=== PATIENT | female | born 1960 | race Caucasian/White ===

== ENCOUNTER 2019-01-08 15:35 | Emergency (ER) | payer SELFPAY ==
[~2019-01-08] VITALS: Ht 170.2 cm; Wt 81.6 kg
[~2019-01-08 15:35] MED LIST: FIORCET PO; METOPROLOL SUCC50 MG PO; ULTRAM50 MG PO
--- OUTSIDE RECORDS SUMMARY | 2019-01-08 15:38 | XMS REPORT | Clinical Summary ---
Author Author [facility] Organization [facility] Address Unknown Phone Unavailable Care Team Providers Care Magnetic Prospector Name Role Phone Aylin Delgado MD PCP Allergies Comments Active Allergy Reactions Severity Noted Date "spaced out" Prochlorperazine Other (See 01/08/2016 Comments) Penicillins Rash Low 01/08/2016 "Red streak" Metoclopramide Hcl Other (See 01/08/2016 Comments) jittery Ketorolac Other (See 01/08/2016 Comments) Medications End Date Status Medication Sig Dispensed Refills Start Date Active metoprolol tartrate Take 50 mg by 0 (LOPRESSOR) 50 mg tablet mouth 2 (two) times a day. Active QUEtiapine (SEROquel) 300 Take 300 mg 0 MG tablet by mouth nightly. Active DULoxetine (CYMBALTA) 30 Take 30 mg by 0 MG capsule mouth daily. Active hydrOXYzine (ATARAX) 25 Take 25 mg by 0 MG tablet mouth 2 (two) times a day. Active traMADol (ULTRAM) 50 mg Take 50 mg by 0 tablet mouth 2 (two) times a day. Active butalbital-acetaminophen- Take 1 0 caff (FIORICET) 50-300-40 capsule by mg capsule mouth daily as needed (migraine). Active gabapentin (NEURONTIN) Take 600 mg 0 600 mg tablet by mouth 2 (two) times a day. 07/05/2018 Discontinued butalbital-acetaminophen- Take 1 tablet 0 caff (FIORICET, ESGIC) by mouth 50-325-40 mg per tablet every 4 (four) hours as needed for headaches. 09/19/2018 Discontinued (Med List Cleanup) clonAZEPAM (KlonoPIN) 1 Take 1 mg by 0 MG tablet mouth 3 (three) times a day. 09/19/2018 Discontinued (Med List Cleanup) QUEtiapine (SEROquel) 100 Take 150 mg 0 MG tablet by mouth 2 (two) times a day. 09/19/2018 Discontinued (Med List Cleanup) PARoxetine (PAXIL) 20 MG Take 20 mg by 0 tablet mouth every morning. 09/19/2018 Discontinued zolpidem (AMBIEN) 10 mg Take 10 mg by 0 tablet mouth nightly as needed for sleep. 09/19/2018 Discontinued (Med List Cleanup) HYDROcodone-acetaminophen Take 2 0 (NORCO) 7.5-325 mg per tablets by tablet mouth 2 (two) times a day. 07/10/2018 butalbital-acetaminophen- Take 1 tablet 20 tablet 0 caff (ESGIC) 50-325-40 mg by mouth 9 per tablet every 4 (four) hours as needed for headaches for up to 5 days. 09/19/2018 Discontinued (Med List Cleanup) dextromethorphan-guaifene Take 10 mL by 236 mL 1 sin (TUSSIN-DM) 10-100 mouth every 4 9 mg/5 mL liquid liquid (four) hours for 30 days. 08/29/2018 Discontinued (Reorder) benzonatate (TESSALON Take 1 20 capsule 0 PERLES) 100 MG capsule capsule (100 9 mg total) by mouth 3 (three) times a day as needed for cough for up to 30 days. 09/19/2018 Discontinued (Med List Cleanup) benzonatate (TESSALON Take 1 20 capsule 0 PERLES) 100 MG capsule capsule (100 9 mg total) by mouth 3 (three) times a day as needed for cough for up to 30 days. 09/24/2018 methylPREDNISolone follow 21 tablet 0 (MEDROL, KIT,) 4 mg package 9 tablet directions Active Problems Problem Noted Date Non-intractable vomiting with nausea 09/07/2017 Encounters Care Team Description Date Type Specialty Steve Butt MD Neck pain (Primary Dx) 09/19/2018 Emergency Emergency Medicine Laurel Ibarra MD Viral URI with cough (Primary Dx); Nonintractable episodic headache, unspecified headache type 08/29/2018 Emergency Emergency Medicine 08/29/2018 Travel Fabio Koroma MD Non-intractable vomiting with nausea, unspecified vomiting type (Primary Dx); Migraine without status migrainosus, not intractable, unspecified migraine type; SOB (shortness of breath) 07/05/2018 Emergency Emergency Medicine after 01/07/2018 Social History Date Tobacco Use Types Packs/Day Years Used Never Smoker Smokeless Tobacco: Never Used Drinks/Week oz/Week Comments Alcohol Use No Sex Assigned at Date Recorded Not on file Industry Job Start Date Occupation Not on file Not on file Not on file Travel End Travel History Travel Start No recent travel history available. Last Filed Vital Signs Reading Time Taken Comments Vital Sign 152/95 09/19/2018 12:30 PM CDT Blood Pressure 56 09/19/2018 12:30 PM CDT Pulse 36.5 C (97.7 F) 09/19/2018 10:08 AM CDT Temperature 18 09/19/2018 12:00 PM CDT Respiratory Rate 99% 09/19/2018 12:30 PM CDT Oxygen Saturation - - Inhaled Oxygen Concentration 77 kg (169 lb 12.1 oz) 08/29/2018 10:01 PM CDT Weight 170.2 cm (5' 7") 09/19/2018 10:08 AM CDT Height 26.59 08/29/2018 10:01 PM CDT Body Mass Index Plan of Treatment Health Maintenance Due Date Last Done Comments CERVICAL CANCER SCREENING 1981 BREAST CANCER SCREENING 2010 COLONOSCOPY SCREENING 2010 SHINGLES VACCINES (#1) 2010 INFLUENZA VACCINE 11/21/2018 Procedures Comments Procedure Name Priority Date/Time Associated Diagnosis CT CERVICAL SPINE WO STAT 09/19/2018 CONTRAST 11:47 AM CDT ESTIMATED GFR STAT 08/29/2018 5:00 PM CDT COMPREHENSIVE METABOLIC STAT 08/29/2018 PANEL 5:00 PM CDT HC COMPLETE BLD COUNT STAT 08/29/2018 W/AUTO DIFF 5:00 PM CDT XR CHEST 2 VW STAT 08/29/2018 4:55 PM CDT HCG QUALITATIVE, URINE Routine 07/05/2018 SCREEN 8:40 PM CDT TROPONIN Timed 07/05/2018 8:[address] HEAD WO CONTRAST STAT 07/05/2018 7:20 PM CDT URINE CULTURE Routine 07/05/2018 6:45 PM CDT URINALYSIS SCREEN AND Routine 07/05/2018 MICROSCOPY, WITH REFLEX 6:44 PM CDT TO CULTURE ESTIMATED GFR STAT 07/05/2018 5:58 PM CDT TROPONIN STAT 07/05/2018 5:58 PM CDT B NATRIURETIC PEPTIDE STAT 07/05/2018 5:58 PM CDT COMPREHENSIVE METABOLIC STAT 07/05/2018 PANEL 5:58 PM CDT PARTIAL THROMBOPLASTIN STAT 07/05/2018 TIME (PTT) 5:58 PM CDT PROTHROMBIN TIME WITH INR STAT 07/05/2018 5:58 PM CDT HC COMPLETE BLD COUNT STAT 07/05/2018 W/AUTO DIFF 5:58 PM CDT ECG 12-LEAD STAT 07/05/2018 4:39 PM CDT after 01/07/2018 Results * CT Cervical Spine Wo Contrast (09/19/2018 11:47 AM CDT) Specimen Narrative Performed At EXAMINATION:CT CERVICAL SPINE WO CONTRAST [facility] CLINICAL HISTORY:Neck paininitial exam COMPARISON:None. TECHNIQUE: Axial helical CT images throughout the cervical spine were performed without IV contrast. Sagittal and coronal reformatted images were generated. All CT images were acquired using low-dose technique with automated exposure control. FINDINGS: There is no evidence of acute fracture, traumatic subluxation, or dislocation. There is normal cervical lordosis and alignment. Vertebral bodies are preserved. There is no evidence of paraspinal hematoma. Minimal posterior disc spondylosis seen at C5-C6 level with no significant canal stenosis. IMPRESSION: No acute cervical spine bony abnormality. [id number] Procedure Note Hm Interface, Radiology Results [facility] - 09/19/2018 11:53 AM CDT EXAMINATION: CT CERVICAL SPINE WO CONTRAST CLINICAL HISTORY: Neck pain initial exam COMPARISON: None. TECHNIQUE: Axial helical CT images throughout the cervical spine were performed without IV contrast. Sagittal and coronal reformatted images were generated. All CT images were acquired using low-dose technique with automated exposure control. FINDINGS: There is no evidence of acute fracture, traumatic subluxation, or dislocation. There is normal cervical lordosis and alignment. Vertebral bodies are preserved. There is no evidence of paraspinal hematoma. Minimal posterior disc spondylosis seen at C5-C6 level with no significant canal stenosis. IMPRESSION: No acute cervical spine bony abnormality. [id number] Performing Organization Address [facility] Hospital[facility] [place] [address] * Estimated GFR (08/29/2018 5:00 PM CDT) Only the most recent of 2 results within the time period is included. [facility] Estimated GFR 71 mL/min/1.73 m2 [facility] Comment: [facility] rpretation G1 >=90 Normal or high G2 60-89Mildly decreased [id number] Mildly to moderately decreased [id number] Moderately to severely decreased G4 15-29Severely decreased G5 <15Kidney failure The eGFR was calculated using the Chronic Kidney Disease Epidemiology Collaboration (CKD-EPI) equation. Interpretation is based on recommendations of the National Kidney Foundation-Kidney Disease Outcomes Quality Initiative (NKF-KDOQI) published in 2014. Specimen Plasma specimen Performing Organization Address City/[facility]/Zipcode Phone Number [facility] [place] [address] PATHOLOGY AND GENOMIC MEDICINE [address] * CBC with platelet and differential (08/29/2018 5:00 PM CDT) Only the most recent of 2 results within the time period is included. [facility] WBC 7.64 4.50 - 11.00 k/uL [facility] RBC 3.47 (L) 4.20 - 5.50 m/uL [facility] HGB 10.4 (L) 12.0 - 16.0 g/dL [facility] HCT 32.5 (L) 37.0 - 47.0 % [facility] MCV 93.7 82.0 - 100.0 fL [facility] MCH 30.0 27.0 - 34.0 pg [facility] MCHC 32.0 31.0 - 37.0 g/dL [facility] RDW - SD 49.3 37.0 - 55.0 fL [facility] MPV 9.6 8.8 - 13.2 fL [facility] Platelet count 291 150 - 400 k/uL [facility] Nucleated RBC 0.00 /100 WBC [facility] Neutrophils 52.6 39.0 - 69.0 % [facility] Lymphocytes 33.0 25.0 - 45.0 % [facility] Monocytes 11.5 (H) 0.0 - 10.0 % [facility] Eosinophils 2.1 0.0 - 5.0 % [facility] Basophils 0.4 0.0 - 1.0 % [facility] Immature 0.4Comment: "Immature 0.0 - 1.0 % MIZE granulocytes granulocytes" (promyelocytes, [facility] myelocytes, metamyelocytes) HOSPITAL Specimen Blood Performing Organization Address City/State/Zipcode Phone Number [facility] DEPARTMENT OF [address] [place] [address] PATHOLOGY AND GENOMIC MEDICINE [address] * Comprehensive metabolic panel (08/29/2018 5:00 PM CDT) Only the most recent of 2 results within the time period is included. Sodium 135 135 - 148 mEq/L [facility] Potassium 3.8 3.5 - 5.0 mEq/L [facility] Chloride 98 98 - 112 mEq/L [facility] CO2 27 24 - 31 mEq/L [facility] Anion gap 10@ANIO 7 - 15 mEq/L [facility] BUN 3 (L) 6 - 20 mg/dL [facility] Creatinine 0.89 0.50 - 0.90 mg/dL [facility] Glucose 92 65 - 99 mg/dL [facility] Calcium 9.0 8.3 - 10.2 mg/dL [facility] Protein 7.6 6.3 - 8.3 g/dL MIZE Comment: [facility] 4.6-7.0 g/dL 1 week 4.4-7.6 g/dL 7 months-1year 5.1-7.3 g/dL 1-2 years5.6-7 .5 g/dL >3 years6.0-8 .0 g/dL 18-150 6.3-8.3 g/dL Albumin 3.3 (L) 3.5 - 5.0 g/dL [facility] A/G ratio 0.8 0.7 - 3.8 [facility] Alkaline 112 (H) 35 - 104 U/L [facility] phosphatase [facility] AST 47 (H) 10 - 35 U/L [facility] ALT 25 5 - 50 U/L [facility] Total bilirubin 0.3 0.0 - 1.2 mg/dL [facility] Specimen Plasma specimen Performing Organization Address City/[facility] Phone Number [facility] DEPARTMENT OF [address] [place] [id number] PATHOLOGY AND GENOMIC MEDICINE [address] * XR Chest 2 Vw (08/29/2018 4:55 PM CDT) Specimen Narrative Performed At EXAMINATION[facility]:Coughnew onset COMPARISON:06/14/2017 IMPRESSION: PA and lateral radiographs of the chest are reviewed. The heart size is normal. A small hiatal hernia is present. There is some atelectasis and/or scarring in the lingula. Right lung is clear. There is no pleural effusion or pneumothorax. There is no acute osseous abnormality. Multiple old right-sided rib fractures are noted. [id number] Procedure Note Interface, Radiology Results Incoming - 08/29/2018 5:03 PM CDT EXAMINATION: XR CHEST 2 VW CLINICAL HISTORY: Cough new onset COMPARISON: 06/14/2017 IMPRESSION: PA and lateral radiographs of the chest are reviewed. The heart size is normal. A small hiatal hernia is present. There is some atelectasis and/or scarring in the lingula. Right lung is clear. There is no pleural effusion or pneumothorax. There is no acute osseous abnormality. Multiple old right-sided rib fractures are noted. [id number] Performing Organization Address City/[facility] Phone Number [facility] [address] [place] [address] * Troponin (07/05/2018 8:40 PM CDT) Only the most recent of 2 results within the time period is included. Pathologist [facility] Troponin <0.30 0.00 - 0.30 ng/mL MIZE Comment: [facility] 0.30 - 1.49 HOSPITAL ng/mlMay indicate increased risk of acute coronary syndrome. >=1.5 ng/ml Consistent with acute myocardial infarction. The diagnostic value of a single normal or non-diagnostic result is questionable.Serial samples at 2-6 hour intervals are required to rule out acute myocardial injury. Specimen Plasma specimen Performing Organization Address City/[facility]/Zipcode Phone Number [facility] DEPARTMENT OF [address] [place] [address] PATHOLOGY AND [facility] MEDIC[facility] [address] * hCG qualitative, urine screen (07/05/2018 8:40 PM CDT) [facility] hCG NegativeComment: Sensitivity [facility] qualitative, of HCG test: 25 mIU/mL [facility] urine [facility] Specimen Urine Performing Organization Address [facility] Phone Number [facility] [place] [address] PATHOLOGY AND [facility] MEDIC[facility] [address] * CT Head Wo Contrast (07/05/2018 7:20 PM CDT) Specimen Narrative Performed At Procedure:CT HEAD WO CONTRAST [facility] REFERRING PHYSICIAN:LIZ COOPER HISTORY:IYER COMPARISON: 01/08/2016 TECHNIQUE: Axial images were obtained of the head without intravenous contrast. All CT scan performed using radiation dose reduction techniques. Technical factors are evaluated and adjusted to ensure appropriate moderation of exposure. Automated dose management technology is applied to adjust the radiation dose to minimize expose whileachieving a diagnostic quality image. FINDINGS: Xavier-white matter differentiation is maintained. The ventricular system is symmetric and midline. There is no evidence of acute hemorrhage. Nointra-axial or extra-axial lesion is seen. Moderate mucosal thickening of the right maxillary sinus is noted. The visualized portion of the orbits, paranasal sinuses and mastoid air cells is otherwise unremarkable. The calvarium is intact. IMPRESSION: No CT evidence of acute intracranial abnormality or hemorrhage. [id number] Procedure Note Interface, Radiology Results Incoming - 07/05/2018 7:34 PM CDT Procedure:CT HEAD WO CONTRAST REFERRING PHYSICIAN:LIZ COOPER HISTORY: IYER COMPARISON: 01/08/2016 TECHNIQUE: Axial images were obtained of the head without intravenous contrast. All CT scan performed using radiation dose reduction techniques. Technical factors are evaluated and adjusted to ensure appropriate moderation of exposure. Automated dose management technology is applied to adjust the radiation dose to minimize expose while achieving a diagnostic quality image. FINDINGS: Xavier-white matter differentiation is maintained. The ventricular system is symmetric and midline. There is no evidence of acute hemorrhage. No intra-axial or extra-axial lesion is seen. Moderate mucosal thickening of the right maxillary sinus is noted. The visualized portion of the orbits, paranasal sinuses and mastoid air cells is otherwise unremarkable. The calvarium is intact. IMPRESSION: No CT evidence of acute intracranial abnormality or hemorrhage. [id number] Performing Organization Address City/[facility]/[place] [address] * Urine culture (07/05/2018 6:45 PM CDT) Urine culture SEE COMMENTComment: [facility] Bacteriuria screen negative. [facility] Specimen Performing Organization Address City/[facility] Phone Number [facility] DEPARTMENT OF [address] [place] [address] PATHOLOGY AND GENOMIC MEDICINE [address] * Urinalysis screen and microscopy, with reflex to culture (07/05/2018 6:44 PM CDT) Specimen site Clean catch [facility] Color, UA Straw [facility] Appearance, UA Clear [facility] Specific 1.006 1.001 - 1.035 [facility] gravity, [facility] pH, UA 7.0 5.0 - 8.5 [facility] Protein, UA Negative Negative [facility] Glucose, UA Negative Negative [facility] Ketones, UA Negative Negative [facility] Bilirubin, UA Negative Negative [facility] Blood, UA Small (A) Negative [facility] Nitrite, UA Negative Negative [facility] Urobilinogen, <2.0 <2.0 [facility] Leukocyte Negative Negative [facility] esterase, [facility] Epithelial 1 /HPF [facility] cells, [facility] WBC, UA 3 0 - 4 /HPF [facility] RBC, UA <1 0 - 5 /HPF [facility] Bacteria, UA Few None seen [facility] Yeast, UA None seen [facility] Yeast with None seen [facility] Specimen Urine Performing Organization Address City/State/Zipcode Phone Number [facility] [place] [address] PATHOLOGY AND [facility]IC[facility] [address] * Partial thromboplastin time, activated (07/05/2018 5:58 PM CDT) Pathologist [facility] PTT 31.6 23.0 - 36.0 sec MI[facility] Comment: [facility] PTT therapeutic range for HOSPITAL unfractionated heparin is 61.0-112.0 seconds which corresponds to Anti-Xa 0.3-0.7 U/ml. Specimen Blood Performing Organization Address City/[facility]/Zipcode Phone Number [facility] [place] [address] PATHOLOGY AND [facility] [address] * Prothrombin time with INR (07/05/2018 5:58 PM CDT) Pathologist [facility] Prothrombin 12.4 11.5 - 14.5 sec [facility] INR 1.0 MIZE Comment: [facility] The International Normalized HOSPITAL Ratio (INR) is a therapeutic monitoring tool for patients who are stable on oral anticoagulant therapy. An INR of 2.0-3.0 is suggested for deep vein thrombosis/pulmonary embolism. Specimen Blood Performing Organization Address [facility] Phone Number [facility] [place] [address] PATHOLOGY AND [facility] [address] * B natriuretic peptide (07/05/2018 5:58 PM CDT) Pathologist [facility] BNP 155 (H) 0 - 100 pg/mL [facility] Specimen Blood Performing Organization Address City/State/Zipcode Phone Number [facility] [place] [address] PATHOLOG[facility] [address] * ECG 12 lead (07/05/2018 4:39 PM CDT) Ventricular 68 [facility] rate Atrial rate 68 [facility] [place] interval 176 [facility] QRSD interval 90 [facility] QT interval 442 [facility] QTC interval 469 [facility] P axis 1 55 [facility] QRS axis 1 -4 [facility] MUSE T wave axis 53 [facility] MUSE EKG impression Sinus rhythm with occasional [facility] MUSE ventricular-paced complexes-Abnormal ECG-In automated comparison with ECG of 07-SEP-2017 15:41,-Electronic ventricular pacemaker has replaced Sinus rhythm- Specimen Narrative Performed At Performing Organization Address City/State/Zipcode Phone Number [facility] MUSE [address] [place] [address] after 01/07/2018 Advance Directives For more information, please contact: [phone] Patient Loss Prevention Specialist Explanation Type Date Recorded Advance Directives, 07/22/2017 4:01 PM Living Will and Medical Power of Engineering Technology Instructor
--- OUTSIDE RECORDS SUMMARY | 2019-01-08 15:39 | XMS REPORT | Continuity of Care Document ---
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 Encounter for screening for HIV Active 03/22/2018 08/27/2018 [facility] Neuropathic pain of left lower extremity Active 03/22/2018 08/27/2018 [facility] Hypertension, well controlled Active 03/22/2018 08/27/2018 [facility] Depression with anxiety Active 03/22/2018 08/27/2018 [facility] Bipolar 1 disorder Active 03/22/2018 08/27/2018 [facility] Homeless Active 03/22/2018 08/27/2018 [facility] Headache disorder Active 01/20/2016 08/27/2018 [facility] Left-sided headache Active 08/27/2018 [facility] Medication refill Active 08/27/2018 [facility] Intractable migraine without aura and with status migrainosus Active 08/27/2018 [facility] Migraine without aura and with status migrainosus, not intractable Active 08/27/2018 [facility] Chronic chest pain Active 08/27/2018 [facility] Headache, chronic daily Active 08/27/2018 [facility] Dehydration Active 08/27/2018 [facility] COHEN (dyspnea on exertion) Active 08/27/2018 [facility] Tachycardia Active 08/27/2018 [facility] Mood disorder Active 08/27/2018 [facility] Encounter to discuss test results Active 08/27/2018 [facility] Neck pain Active 08/27/2018 [facility] Encounter to establish care Active 08/27/2018 [facility] Night sweats Active 08/27/2018 [facility] Hospital discharge follow-up Active 08/27/2018 [facility] Screen for colon cancer Active 08/27/2018 [facility] Right calf pain Active 08/27/2018 [facility] Rib pain on left side Active 08/27/2018 [facility] Chest pain, unspecified type Active 08/27/2018 [facility] Intractable episodic headache, unspecified headache type Active 08/27/2018 [facility] Flu vaccine need Active 08/27/2018 [facility] Pap smear of cervix declined because of other reasons Active 08/27/2018 [facility] Screening for breast cancer Active 08/27/2018 [facility] Routine health maintenance Active 08/27/2018 [facility] Suicidal behavior with attempted self-injury Active 08/27/2018 [facility] Depressive disorder Active 08/27/2018 [facility] PTSD (post-traumatic stress disorder) Active 08/27/2018 [facility] Substance use disorder Active 08/27/2018 [facility] Medications Medication Details Route Status Patient Instructions Ordering Provider Order Date Source gabapentin (NEURONTIN) 100 mg capsule Take 1 tablet po bid. Active 08/14/2018 [facility] QUEtiapine (SEROQUEL) 300 mg tablet Take 1 tablet po q hs. Active 08/14/2018 [facility] DULoxetine (CYMBALTA) 30 mg delayed release capsule Take 1 capsule by mouth daily. Oral Active 08/14/2018 [facility] hydrOXYzine (ATARAX) 25 mg tablet Take 2 tablets by mouth 2 times daily as needed for Anxiety or Insomnia. Oral Active 08/14/2018 [facility] topiramate (TOPAMAX) 25 mg sprinkle capsule Take 1 capsule by mouth As directed Take 25mg by mouth once daily for 1 weekThen 25mg by mouth twice a day for 1 weekThen 25mg by mouth in the morning and 50mg at night for 1 weekThen 50mg by mouth twice a day. Oral Active 07/06/2018 [facility] gabapentin (NEURONTIN) 600 mg tablet Take 1 tablet by mouth 2 times daily. Oral No Longer Active 07/06/2018 [facility] metoprolol tartrate (LOPRESSOR) 50 mg tablet Take 1 tablet by mouth 2 times daily. Oral Active 07/06/2018 [facility] QUEtiapine (SEROQUEL) 200 mg tablet Take 1 tablet by mouth at bedtime nightly. Oral No Longer Active 07/04/2018 [facility] DULoxetine (CYMBALTA) 30 mg delayed release capsule Take 1 capsule by mouth daily. Oral No Longer Active 07/04/2018 [facility] hydrOXYzine (ATARAX) 25 mg tablet Take 2 tablets by mouth 2 times daily as needed for Anxiety or Insomnia. Oral No Longer Active 07/04/2018 [facility] gabapentin (NEURONTIN) 600 mg tablet Take 1 tablet by mouth 2 times daily. Oral No Longer Active 05/27/2018 [facility] metoprolol tartrate (LOPRESSOR) 50 mg tablet Take 1 tablet by mouth 2 times daily. Oral No Longer Active 05/27/2018 [facility] gabapentin (NEURONTIN) 600 mg tablet Take 1 tablet by mouth 2 times daily. Oral No Longer Active 05/24/2018 [facility] metoprolol tartrate (LOPRESSOR) 50 mg tablet Take 1 tablet by mouth 2 times daily. Oral No Longer Active 05/24/2018 [facility] QUEtiapine (SEROQUEL) 200 mg tablet Take 1 tablet by mouth at bedtime nightly. Oral No Longer Active 05/21/2018 [facility] DULoxetine (CYMBALTA) 30 mg delayed release capsule Take 1 capsule by mouth daily. Oral No Longer Active 05/21/2018 [facility] hydrOXYzine (ATARAX) 25 mg tablet Take 2 tablets by mouth 2 times daily as needed for Anxiety or Insomnia. Oral No Longer Active 05/21/2018 [facility] QUEtiapine (SEROQUEL) 200 mg tablet Take 1 tablet by mouth at bedtime nightly. Oral No Longer Active 04/30/2018 [facility] DULoxetine (CYMBALTA) 30 mg delayed release capsule Take 1 capsule by mouth daily. Oral No Longer Active 04/30/2018 [facility] hydrOXYzine (ATARAX) 25 mg tablet Take 1 tablet by mouth 3 times daily as needed for Anxiety. Oral No Longer Active 04/30/2018 [facility] cyclobenzaprine (FLEXERIL) 10 mg tablet Take 1 tablet by mouth nightly at bedtime as needed for Muscle Spasms. Oral Active 04/29/2018 [facility] QUEtiapine (SEROQUEL) 200 mg tablet Take 1 tablet by mouth at bedtime nightly. Oral No Longer Active 04/25/2018 [facility] metoprolol tartrate (LOPRESSOR) 50 mg tablet Take by mouth. Oral No Longer Active 04/11/2018 [facility] acetaminophen-codeine (TYLENOL #3) 300-30 mg per tablet Take 2 tablets by mouth every 6 hours as needed for Pain. Oral No Longer Active 04/11/2018 [facility] diazePAM (VALIUM) 5 mg tablet Take 1 tablet by mouth every 12 hours for 10 days. Oral No Longer Active 04/11/2018 [facility] gabapentin (NEURONTIN) 600 mg tablet Take 1 tablet by mouth 2 times daily. Oral No Longer Active 04/11/2018 [facility] QUEtiapine (SEROQUEL) 200 mg tablet Take 1 tablet by mouth at bedtime nightly. Oral No Longer Active 04/11/2018 [facility] DULoxetine (CYMBALTA) 30 mg delayed release capsule Take 1 capsule by mouth daily. Oral No Longer Active 04/11/2018 [facility] topiramate (TOPAMAX) 25 mg sprinkle capsule Take 1 capsule by mouth As directed Take 25mg by mouth once daily for 1 weekThen 25mg by mouth twice a day for 1 weekThen 25mg by mouth in the morning and 50mg at night for 1 weekThen 50mg by mouth twice a day. Oral Inactive 04/11/2018 [facility] topiramate (TOPAMAX) 25 mg sprinkle capsule Take 1 capsule by mouth As directed Take 25mg by mouth once daily for 1 weekThen 25mg by mouth twice a day for 1 weekThen 25mg by mouth in the morning and 50mg at night for 1 weekThen 50mg by mouth twice a day. Oral No Longer Active 04/09/2018 [facility] QUEtiapine (SEROQUEL) 300 mg tablet Take 600 mg by mouth at bedtime nightly. Oral No Longer Active 03/26/2018 [facility] hydrOXYzine pamoate 50 mg capsule Take 50 mg by mouth 3 times daily as needed for Anxiety. Oral No Longer Active 03/26/2018 [facility] venlafaxine (EFFEXOR XR) 75 mg extended release capsule Take by mouth. Oral No Longer Active 03/26/2018 [facility] divalproex (DEPAKOTE) 500 mg extended release tablet Take by mouth. Oral No Longer Active 03/26/2018 [facility] QUEtiapine (SEROQUEL) 200 mg tablet Take 1 tablet by mouth at bedtime nightly. Oral No Longer Active 03/26/2018 [facility] DULoxetine (CYMBALTA) 30 mg delayed release capsule Take 1 capsule by mouth daily. Oral No Longer Active 03/26/2018 [facility] naltrexone (REVIA, VIVITROL) 50 mg tablet Take 1 tablet by mouth daily. Oral No Longer Active 03/26/2018 [facility] hydrOXYzine (ATARAX) 25 mg tablet Take 1 to 2 tabs by mouth three times daily as needed for anxiety. No Longer Active 03/26/2018 [facility] divalproex sodium (DEPAKOTE OR) Take 1,000 mg by mouth at bedtime nightly. Oral No Longer Active 03/22/2018 [facility] metoprolol succinate (TOPROL XL) 50 mg extended release tablet Take 50 mg by mouth 2 times daily. Oral No Longer Active 03/22/2018 [facility] gabapentin (NEURONTIN) 600 mg tablet Take 600 mg by mouth 2 times daily. Oral No Longer Active 03/22/2018 [facility] gabapentin (NEURONTIN) 600 mg tablet Take 1 tablet by mouth 2 times daily. Oral No Longer Active 03/22/2018 [facility] traMADol (ULTRAM) 50 mg tablet Take by mouth. Oral No Longer Active 12/30/2017 [facility] DZSLUBRDAR-NMRG-DHSAFJVD 50-325-40 mg cap Take by mouth every 6 hours as needed for Pain. Oral No Longer Active 01/21/2016 [facility] SUMAtriptan (IMITREX) 100 mg tablet Take 1 tablet by mouth at onset of headache. Repeat after 2 hours if needed. Maximum 200mg/24 hours.. No Longer Active 01/20/2016 [facility] Allergies, Adverse Reactions, Alerts Substance Category Reaction Severity Reaction type Status Date Reported Comments Source Penicillins Rash Propensity to adverse reactions to drug Active 06/09/2012 [facility] Prochlorperazine Propensity to adverse reactions to drug Active 06/09/2012 [facility] Immunizations Immunization Date Given Site Status Last Updated Comments Source Influenza, Vaccine<FLUCELVAX>(Multi-Dose) 03/22/[address] [facility] Results Order Name Results Value Reference Range Date Interpretation Comments Source URINE DRUG SCREEN Amphetamine Negative NEG 08/01/2018 Calibrated Standard: D-Methamphetamine
Positive if urine level >sk=9769 ng/mL
Test performed on [id number] using EMIT Immunoassay

[facility] URINE DRUG SCREEN Barbiturate Negative NEG 08/01/2018 Calibrated Standard: Secobarbital
Positive if urine level is >ru=198 ng/mL
Test performed on [id number] using EMIT Immunoassay

[facility] URINE DRUG SCREEN Benzodiazepine Negative NEG 08/01/2018 Calibrated Standard: Lormethazepam
Positive if urine level is >vm=285 ng/mL
Test performed on [id number] using EMIT Immunoassay

[facility] URINE DRUG SCREEN Cannabinoid Negative NEG 08/01/2018 Calibrated Standard: 11 nor-delta(9)-THC carboxylic a
Positive if urine level >or=50
Test performed on [id number] using EMIT Immunoassay

[facility] URINE DRUG SCREEN Cocaine Positive NEG 08/01/2018 Calibrated Standard: Benzoylecgonine
Positive if urine level >wb=994
Test performed on [id number] using EMIT Immunoassay

[facility] URINE DRUG SCREEN Opiate, Ur Negative NEG 08/01/2018 Calibrated Standard: Morphine
Positive if urine level >pd=560
Test performed on [id number] using EMIT Immunoassay

[facility] URINE DRUG SCREEN PCP Negative NEG 08/01/2018 Calibrated Standard: Phencyclidine
Positive if urine level >or=25
Test performed on [id number] using EMIT Immunoassay
Urine Toxicology Screen results are to be used only for Medical purposes.

[facility] URINE DRUG SCREEN Lab Interpretation Abnormal 08/01/2018 [facility] UA CHEMISTRIES Color Yellow 08/01/2018 [facility] UA CHEMISTRIES Clarity Clear 08/01/2018 [facility] UA CHEMISTRIES Spec [place] 1.020 1.001 - 1.035 08/01/2018 [facility] UA CHEMISTRIES pH 5.0 5 - 8 08/01/2018 [facility] UA CHEMISTRIES Protein 1+ NEG 08/01/2018 [facility] UA CHEMISTRIES Glucose Negative NEG 08/01/2018 [facility] UA CHEMISTRIES Ketone Negative NEG 08/01/2018 [facility] UA CHEMISTRIES Bilirubin Negative NEG 08/01/2018 [facility] UA CHEMISTRIES Nitrate Negative NEG 08/01/2018 [facility] UA CHEMISTRIES Urobilinogen <1.0 0.2 - 1 08/01/2018 [facility] UA CHEMISTRIES Leukocyte Trace NEG 08/01/2018 [facility] UA CHEMISTRIES Blood Negative NEG 08/01/2018 [facility] UA CHEMISTRIES RBC 3 0 - 4 08/01/2018 [facility] UA CHEMISTRIES WBC 3 0 - 5 08/01/2018 [facility] UA CHEMISTRIES Bacteria Few 08/01/2018 [facility] UA CHEMISTRIES Epithelial Cell 2 /HPF 08/01/2018 [facility] UA CHEMISTRIES Hyaline Cast 3 /LPF 08/01/2018 [facility] UA CHEMISTRIES Calc Ox Cristina Present 08/01/2018 [facility] UA CHEMISTRIES Lab Interpretation Abnormal 08/01/2018 [facility] CBC/DIFF WBC 4.8 4.5 - 11 08/01/2018 [facility] CBC/DIFF RBC 3.99 4.20 - 5.40 08/01/2018 [facility] CBC/DIFF Hemoglobin 12.0 12 - 16 08/01/2018 [facility] CBC/DIFF Hematocrit 37.6 37 - 47 08/01/2018 [facility] CBC/DIFF MCV 94 82 - 92 08/01/2018 [facility] CBC/DIFF MCH 30.1 27 - 32 08/01/2018 [facility] CBC/DIFF MCHC 31.9 32 - 36 08/01/2018 [facility] CBC/DIFF RDW 49.3 36.4 - 46.3 08/01/2018 [facility] CBC/DIFF Platelet 238 150 - 400 08/01/2018 [facility] CBC/DIFF Mean Platelet Volume 10.6 9.4 - 12.4 08/01/2018 [facility] CBC/DIFF Percent NRBC 0.0 08/01/2018 [facility] CBC/DIFF Absolute NRBC 0.00 08/01/2018 [facility] CBC/DIFF Neutrophil 50.5 34 - 70 08/01/2018 [facility] CBC/DIFF Lymphocyte 35.3 20 - 50 08/01/2018 [facility] CBC/DIFF Monocyte 10.5 5 - 12 08/01/2018 [facility] CBC/DIFF Eosinophil 3.1 0.7 - 5 08/01/2018 [facility] CBC/DIFF Basophil 0.4 0.1 - 1.2 08/01/2018 [facility] CBC/DIFF Pct Immat Gran 0.2 0.0 - 0.5 08/01/2018 [facility] CBC/DIFF Neutrophil, Abs 2.44 1.56 - 6.13 08/01/2018 [facility] CBC/DIFF Lymphocyte, Abs 1.71 1.18 - 3.74 08/01/2018 [facility] CBC/DIFF Monocyte, Abs 0.51 0.24 - 0.36 08/01/2018 [facility] CBC/DIFF Eosinophil, Abs 0.15 0.04 - 0.36 08/01/2018 [facility] CBC/DIFF Basophil, Abs 0.02 0.01 - 0.08 08/01/2018 [facility] CBC/DIFF Absol Immat Gran 0.01 0 - 0.03 08/01/2018 [facility] CBC/DIFF Lab Interpretation Abnormal 08/01/2018 [facility] BMP POC CO2 POC 22 21 - 32 08/01/2018 [facility] POC Chloride POC 106 98 - 107 08/01/2018 [facility] POC Potassium POC 4.6 3.5 - 5.1 08/01/2018 [facility] POC Sodium POC 139 136 - 145 08/01/2018 [facility] POC Glucose POC 109 74 - 106 08/01/2018 [facility] POC Urea Nitrogen POC 18 7 - 18 08/01/2018 [facility] POC Creatinine POC 1.0 0.6 - 1.3 08/01/2018 [facility] POC Calcium Ionized POC 1.06 1.15 - 1.29 08/01/2018 [facility] POC Hemoglobin POC 13.6 12 - 16 08/01/2018 [facility] POC Hematocrit POC 40.0 37 - 47 08/01/2018 [facility] POC GFR, Estimated 57 mL/min/1.73 m2 08/01/2018 [facility] POC GFR, Estim, Afr-Am >60 mL/min/1.73 m2 08/01/2018 [facility] POC Lab Interpretation Abnormal 08/01/2018 [facility] URINE DRUG SCREEN Amphetamine Negative NEG 05/21/2018 Calibrated Standard: D-Methamphetamine
Positive if urine level >cr=2532 ng/mL
Test performed on [id number] using EMIT Immunoassay

[facility] URINE DRUG SCREEN Barbiturate Positive NEG 05/21/2018 Calibrated Standard: Secobarbital
Positive if urine level is >bd=654 ng/mL
Test performed on [id number] using EMIT Immunoassay

[facility] URINE DRUG SCREEN Benzodiazepine Positive NEG 05/21/2018 Calibrated Standard: Lormethazepam
Positive if urine level is >cm=978 ng/mL
Test performed on [id number] using EMIT Immunoassay

[facility] URINE DRUG SCREEN Cannabinoid Negative NEG 05/21/2018 Calibrated Standard: 11 nor-delta(9)-THC carboxylic a
Positive if urine level >or=50
Test performed on [id number] using EMIT Immunoassay

[facility] URINE DRUG SCREEN Cocaine Negative NEG 05/21/2018 Calibrated Standard: Benzoylecgonine
Positive if urine level >ob=834
Test performed on [id number] using EMIT Immunoassay

[facility] URINE DRUG SCREEN Opiate, Ur Negative NEG 05/21/2018 Calibrated Standard: Morphine
Positive if urine level >ma=797
Test performed on [id number] using EMIT Immunoassay

[facility] URINE DRUG SCREEN PCP Negative NEG 05/21/2018 Calibrated Standard: Phencyclidine
Positive if urine level >or=25
Test performed on [id number] using EMIT Immunoassay
Urine Toxicology Screen results are to be used only for Medical purposes.

[facility] URINE DRUG SCREEN Lab Interpretation Abnormal 05/21/2018 [facility] HEMOGLOBIN A1C Hemoglobin A1c 5.6 4.3 - 6.1 04/30/2018 [facility] HEMOGLOBIN A1C Est Average Gluc 114.0 04/30/2018 [facility] HEPATITIS PANEL HCV IgG Negative NEG 04/30/2018 [facility] HEPATITIS PANEL HBsAg Negative NEG 04/30/2018 [facility] HEPATITIS PANEL HAV, IgM Negative NEG 04/30/2018 [facility] HEPATITIS PANEL HBcAb, IgM Negative NEG 04/30/2018 [facility] HIV-1/HIV-2 ROUTINE SCREENING HIV-1/HIV-2 Negative NEG 04/30/2018 [facility] FSH/LH FSH 78.66 mIU/mL 04/30/2018 REFERENCE RANGE FEMALE:
POST MENOPAUSAL:16.74-113.59
Mid-follicular:3.85-8.78
Female Mid-cycle:4.54-22.51
Mid-luteal:1.79-5.12

[facility] FSH/LH LH 24.93 mIU/mL 04/30/2018 REFERENCE RANGE FEMALE:
POST MENOPAUSAL 10.87-58.64
Mid-follicular2.12-10.89
Mid-cycle 4.54-22.51
Mid-luteal1.79-5.12

[facility] BASIC METABOLIC PANEL CO2 25 21 - 31 04/30/2018 [facility] BASIC METABOLIC PANEL Chloride 104 98 - 107 04/30/2018 [facility] BASIC METABOLIC PANEL Potassium 4.6 3.5 - 5.1 04/30/2018 [facility] BASIC METABOLIC PANEL Sodium 139 136 - 145 04/30/2018 [facility] BASIC METABOLIC PANEL Glucose 93 70 - 110 04/30/2018 [facility] BASIC METABOLIC PANEL Urea Nitrogen 14 7 - 25 04/30/2018 [facility] BASIC METABOLIC PANEL Creatinine 1.00 0.6 - 1.2 04/30/2018 [facility] BASIC METABOLIC PANEL Anion Gap 10 04/30/2018 [facility] BASIC METABOLIC PANEL Calcium 10.1 8.6 - 10.3 04/30/2018 [facility] BASIC METABOLIC PANEL GFR, Estimated 57 mL/min/1.73 m2 04/30/2018 [facility] BASIC METABOLIC PANEL GFR, Estim, Afr-Am >60 mL/min/1.73 m2 04/30/2018 [facility] LIPID PROFILE Cholesterol 235 04/30/2018 REFERENCE RANGE:
Desirable: <200 mg/dL
Borderline: 200-240 mg/dL
High Risk: >240 mg/dL

[facility] LIPID PROFILE Triglyceride 156 <150 04/30/2018 REFERENCE RANGE:
Normal: <150 mg/dL
Borderline High: 150-199 mg/dL
High: 200-499 mg/dL
Very High: >hr=498 mg/dL

[facility] LIPID PROFILE HDL 61 04/30/2018 Increased CHD risk: <40 mg/dL
Decreased CHD risk: >60 mg/dL

[facility] LIPID PROFILE LDL 143 04/30/2018 REFERENCE RANGE:
Optimal: <100 mg/dL
Near Optimal: 100-129 mg/dL
Borderline High: 130-159 mg/dL
High: 160-189 mg/dL
Very High: >fo=666 mg/dL

[facility] LIPID PROFILE Lab Interpretation Abnormal 04/30/2018 [facility] LIVER PROFILE T Protein 8.0 6 - 8.3 04/30/2018 [facility] LIVER PROFILE Albumin 4.6 3.7 - 5.3 04/30/2018 [facility] LIVER PROFILE T Bilirubin 0.5 0.2 - 1.2 04/30/2018 [facility] LIVER PROFILE Alk Phos 93 34 - 104 04/30/2018 [facility] LIVER PROFILE AST 22 13 - 39 04/30/2018 [facility] LIVER PROFILE ALT 11 7 - 52 04/30/2018 [facility] LIVER PROFILE D Bilirubin 0.1 0 - 0.2 04/30/2018 [facility] FREE T4 Free T4 0.81 0.61 - 1.18 04/30/2018 females:
1st Trimester-0.52-1.10 ng/dL
2nd Trimester=0.45- 0.99 ng/dL
3rd Trimester=0.48-0.95 ng/dL

[facility] TSH TSH 0.70 0.57 - 3.74 04/30/2018 [facility] UA CHEMISTRIES Color Yellow 04/30/2018 [facility] UA CHEMISTRIES Clarity Clear 04/30/2018 [facility] UA CHEMISTRIES Spec [place] 1.015 1.001 - 1.035 04/30/2018 [facility] UA CHEMISTRIES pH 6.0 5 - 8 04/30/2018 [facility] UA CHEMISTRIES Protein Negative NEG 04/30/2018 [facility] UA CHEMISTRIES Glucose Negative NEG 04/30/2018 [facility] UA CHEMISTRIES Ketone Negative NEG 04/30/2018 [facility] UA CHEMISTRIES Bilirubin Negative NEG 04/30/2018 [facility] UA CHEMISTRIES Nitrate Negative NEG 04/30/2018 [facility] UA CHEMISTRIES Urobilinogen <1.0 0.2 - 1 04/30/2018 [facility] UA CHEMISTRIES Leukocyte Trace NEG 04/30/2018 [facility] UA CHEMISTRIES Blood 1+ NEG 04/30/2018 [facility] UA CHEMISTRIES RBC <1 0 - 4 04/30/2018 [facility] UA CHEMISTRIES WBC <1 0 - 5 04/30/2018 [facility] UA CHEMISTRIES Epithelial Cell 1 /HPF 04/30/2018 [facility] UA CHEMISTRIES Lab Interpretation Abnormal 04/30/2018 [facility] MAMMOGRAM BILAT SCREEN DIGITAL <p>IMPRESSION: NEGATIVE</p><p>There is no mammographic evidence of malignancy. A 1 year </p><p>screening mammogram is recommended.</p><p> </p><p>I have reviewed the study and agree with the findings in the </p><p>report.</p><p> </p><p>This document has been electronically signed.</p><p> </p><p>Sherrie Hebert M.D.</ p><p>denny gross/penrad:04/29/2018 14:38:02</p><p> </p><p>Wire St[employer]cher Machine: [facility] </p><p>Clinic </p><p>letter sent: Mammography Normal</p><p>Mammogram BI-RADS: 1 Negative G0202 z12.31</p> IMPRESSION: NEGATIVEThere is no mammographic evidence of malignancy. A 1 year screening mammogram is recommended. I have reviewed the study and agree with the findings in the report. This document has been electronically signed. Sherrie Rob dd/penrad:04/29/2018 14:38:02 [employer] St[employer] Machine: [facility] letter sent: Mammography NormalMammog curtis BI-RADS: 1 Negative G0202 z12.31 04/29/2018 [facility] MAMMOGRAM BILAT SCREEN DIGITAL <p> </p><p>#[id number] - MAMMOGRAM BILAT SCREEN DIGITAL</p><p>BILATERAL FIRST EVER DIGITAL SCREENING MAMMOGRAM WITH CAD: </p><p>04/29/2018</p><p>CLINICAL: Screening for malignancy.</p><p> </p><p>No prior exams were available for comparison.</p><p>There are scattered fibroglandular elements in both breasts that </p><p>could obscure a lesion on mammography.</p><p>Current study was also evaluated with a Computer Aided Detection </p><p>(CAD) system.</p><p>No significant masses, calcifications, or other findings are seen </p><p>in either breast.</p><p> </p> #[id number] - MAMMOGRAM BILAT SCREEN DIGITALBILATERAL FIRST EVER DIGITAL SCREENING MAMMOGRAM WITH CAD: 04/29/2018CLINICAL: Screening for malignancy. No prior exams were available for comparison.There are scattered fibroglandular elements in both breasts that could obscure a lesion on mammography.Current study was also evaluated with a Computer Aided Detection (CAD) system.No significant masses, calcifications, or other findings are seen in either breast. 04/29/2018 [facility] MAMMOGRAM BILAT SCREEN DIGITAL <p styleCode="header">Interface, Rad/Mammog In - 04/30/2018 7:51 AM FASHION MODEL</p><p>
<span>#[id number] - MAMMOGRAM BILAT SCREEN DIGITAL</span>
<span>BILATERAL FIRST EVER DIGITAL SCREENING MAMMOGRAM WITH CAD: </span>
<span>04/29/2018</span>
<span>CLINICAL: Screening for malignancy. </span>

<span>No prior exams were available for comparison. </span>
<span>There are scattered fibroglandular elements in both breasts that </span>
<span>could obscure a lesion on mammography. </span>
<span>Current study was also evaluated with a Computer Aided Detection </span>
<span>(CAD) system. </span>
<span>No significant masses, calcifications, or other findings are seen </span>
<span>in either breast. </span>

<span>IMPRESSION</span>
<span>IMPRESSION: NEGATIVE</span>
<span>There is no mammographic evidence of malignancy. A 1 year </span>
<span>screening mammogram is recommended. </span>

<span>I have reviewed the study and agree with the findings in the </span>
<span>report.</span>

<span>This document has been electronically signed.</span>

<span>Sherrie Hebert M.D.</span>
<span>denny gross/penrad:04/29/2018 14:38:02 </span><b r/>
<span>Wire Stitcher Machine: Blair Puckett </span>
<span>Clinic </span>
<span>letter sent: Mammography Normal </span>
<span>Mammogram BI-RADS: 1 Negative G0202 z12.31</span></p> Interface, Rad/Mammog In - 04/30/2018 7:51 AM FASHION MODEL #[id number] - MAMMOGRAM BILAT SCREEN DIGITAL BILATERAL FIRST EVER DIGITAL SCREENING MAMMOGRAM WITH CAD: 04/29/2018 CLINICAL: Screening for malignancy. No prior exams were available for comparison. There are scattered fibroglandular elements in both breasts that could obscure a lesion on mammography. Current study was also evaluated with a Computer Aided Detection (CAD) system. No significant masses, calcifications, or other findings are seen in either breast. IMPRESSION IMPRESSION: NEGATIVE There is no mammographic evidence of malignancy. A 1 year screening mammogram is recommended. I have reviewed the study and agree with the findings in the report. This document has been electronically signed. Sherrie gross dd/marian:04/29/2018 14:38:02 Wire Stitcher Machine: [facility] P[facility] Clinic letter sent: Mammography Normal Mammogram BI-RADS: 1 Negative G0202 z12.31 04/29/2018 [facility] CBC/DIFF WBC 5.3 4.5 - 11 04/18/2018 [facility] CBC/DIFF RBC 4.04 4.20 - 5.40 04/18/2018 [facility] CBC/DIFF Hemoglobin 12.5 12 - 16 04/18/2018 [facility] CBC/DIFF Hematocrit 38.8 37 - 47 04/18/2018 [facility] CBC/DIFF MCV 96 82 - 92 04/18/2018 [facility] CBC/DIFF MCH 30.9 27 - 32 04/18/2018 [facility] CBC/DIFF MCHC 32.2 32 - 36 04/18/2018 [facility] CBC/DIFF RDW 58.3 36.4 - 46.3 04/18/2018 [facility] CBC/DIFF Platelet 229 150 - 400 04/18/2018 [facility] CBC/DIFF Mean Platelet Volume 10.1 9.4 - 12.4 04/18/2018 [facility] CBC/DIFF Percent NRBC 0.0 04/18/2018 [facility] CBC/DIFF Absolute NRBC 0.00 04/18/2018 [facility] CBC/DIFF Neutrophil 84.2 34 - 70 04/18/2018 [facility] CBC/DIFF Lymphocyte 14.6 20 - 50 04/18/2018 [facility] CBC/DIFF Monocyte 0.6 5 - 12 04/18/2018 [facility] CBC/DIFF Eosinophil 0.0 0.7 - 5 04/18/2018 [facility] CBC/DIFF Basophil 0.0 0.1 - 1.2 04/18/2018 [facility] CBC/DIFF Pct Immat Gran 0.6 0.0 - 0.5 04/18/2018 [facility] CBC/DIFF Neutrophil, Abs 4.50 1.56 - 6.13 04/18/2018 [facility] CBC/DIFF Lymphocyte, Abs 0.78 1.18 - 3.74 04/18/2018 [facility] CBC/DIFF Monocyte, Abs 0.03 0.24 - 0.36 04/18/2018 [facility] CBC/DIFF Eosinophil, Abs 0.00 0.04 - 0.36 04/18/2018 [facility] CBC/DIFF Basophil, Abs 0.00 0.01 - 0.08 04/18/2018 [facility] CBC/DIFF Absol Immat Gran 0.03 0 - 0.03 04/18/2018 [facility] CBC/DIFF Lab Interpretation Abnormal 04/18/2018 [facility] POC CO2 POC 16 21 - 32 04/18/2018 Physician Notified [facility] POC Chloride POC 105 98 - 107 04/18/2018 [facility] POC Potassium POC 4.0 3.5 - 5.1 04/18/2018 [facility] POC Sodium POC 139 136 - 145 04/18/2018 [facility] POC Glucose POC 256 74 - 106 04/18/2018 [facility] POC Urea Nitrogen POC 9 7 - 18 04/18/2018 [facility] POC Creatinine POC 0.9 0.6 - 1.3 04/18/2018 [facility] POC Calcium Ionized POC 1.07 1.15 - 1.29 04/18/2018 [facility] POC Hemoglobin POC 15.0 12 - 16 04/18/2018 [facility] POC Hematocrit POC 44.0 37 - 47 04/18/2018 [facility] POC GFR, Estimated >60 mL/min/1.73 m2 04/18/2018 [facility] POC GFR, Estim, Afr-Am >60 mL/min/1.73 m2 04/18/2018 [facility] POC Lab Interpretation Abnormal 04/18/2018 [facility] TROPONIN I POC Troponin POC 0.00 0 - 0.08 04/18/2018 [facility] 12 LEAD EKG 12 LEAD EKG FOR CHP [facility] Test Date:2018-04-18 Pat Name: DOMINIC Lopez: [id number] : Gender: FTechnician: [id number] :1960 Requested By: ROSARIO SMITH Order Number: [id number] MD: Edy Manley M.D. Measurements IntervalsAxis Rate: 104P:42 MI: 201QRS:-30 QRSD: 77 T:16 QT: 363 QTc:479 Interpretive Statements SINUS TACHYCARDIA POSSIBLE ANTERIOR MYOCARDIAL INFARCTION, PROBABLY OLD ABNORMAL RHYTHM ECG Electronically Signed On 04-18-2018 14:13:28 FASHION MODEL by Edy Manley M.D. 04/18/2018 [facility] TREADMILL STRESS-TRACING ONLY Stress Test [facility] Test Date:2018-04-10 Pat Name: DOMINIC Lopez: 5BMS : Gender: FTechnician: :1960 Requested By: RYAN GAVIN Order Number: [id number] MD: Antoinette Weldon M.D. Interpretive Statements EKG Portion of Nuclear Stress Test Indication: chest pain Findings: The patient was administered regadenoson 0.4Mg IV. Aminophylline was given if needed. The resting heart rate of 62 bpm bert to a maximal heart rate of 96 bpm. The resting blood pressure of 109/71 mmHg , was maintained during the examination. Conclusions: 1. ECG portion of nuclear stress test is negative for ischemia 2. Testing terminated due to end of test. No chest pain/pressure noted. 3. Baseline EKG:NSR without ST changes.Stress EKG: NSR without ST changes. 4. Noted arrhythmias: none 5. Please see results from nuclear stress test from the same date for perfusion data. Electronically Signed On 04-18-2018 12:08:39 FASHION MODEL by Antoinette Weldon M.D. 04/18/2018 [facility] HIV-1/HIV-2 DIAGNOSTIC/SYMPTOMATIC HIV-1/HIV-2 Negative NEG 04/18/2018 [facility] D-DIMER D-Dimer 0.72 ug/mL,FEU 04/18/2018 Values of quantitative d-Dimer less than 0.40 ug/mL FEU have been reported to
be associated with a low probability of deep vein thrombosis/pulmonary
embolism. This test alone should not be used to rule out DVT/PE.

[facility] 12 LEAD EKG 12 LEAD EKG FOR P [facility] Test Date:2018-04-17 Pat Name: DOMINIC Ngpartment: [id number] : Gender: FTechnician: [id number] :1960 Requested By: ASHUTOSH Muse Order Number: [id number] MD: Edy Manley M.D. Measurements IntervalsAxis Rate: 72 P:31 MI: 196QRS:-5 QRSD: 90 T:49 QT: 416 QTc:456 Interpretive Statements SINUS RHYTHM LOW QRS VOLTAGE IN PRECORDIAL LEADS POSSIBLE ANTERIOR MYOCARDIAL INFARCTION, PROBABLY OLD Electronically Signed On 04-17-2018 15:32:59 FASHION MODEL by Edy Manley M.D. 04/17/2018 [facility] TRANSTHORACIC ECHO (TTE) TRANSTHORACIC ECHO (TTE) Transthoracic Echo Report DOMINIC BRISCOE Age:57 Gender: F :1960 Exam Date: 04/10/2018 09:20 Exam Location: [facility] Echo Ordering Phys: SHILPI UNGER Referring Phys:[id number] Reading Phys:Antoinette Weldon MD Fellow Phys: Saige Archer M.D. Fellow Phys: Seismic Engineer: Marlon Claire Reason For Exam: Indications:Chest pain, unspecified ICD-9 Codes: R07.9 Exam Type: TRANSTHORACIC ECHO (TTE) Procedure CPT:43297 Addtional CPT: Ht (in): 66 BSA: 2.02HR: 61 Rhythm: Sinus rhythm Wt (lb): 188BP: 101/ 65 Technical Quality: Technically difficult study History: 57 yo F with HTN, depression presents with atypical chest pain MEASUREMENTS Normal ranges based on 95% confidence intervals for adults, some normal patients may fall outside of this range especially when indexing for BSA 2D ECHO LV Diastolic Diameter PLAX3.8 cm4.2-5.8 (M) / 3.8-5.2 (F) LV Systolic Diameter PLAX 2.3 cm2.5-4.0 (M) / 2.2-3.5 (F) LV Fractional Shortening PLAX 38.6 % IVS Diastolic Thickness 0.92 cm 0.6-1.0 (M) / 0.6-0.9 (F) LVPW Diastolic Thickness0.99 cm 0.6-1.0 (M) / 0.6-0.9 (F) LV Relative Wall Thickness0.51<=0.42 LVOT Diameter 2.2 cm Aortic Root Diameter3.7 cm LV Diastolic Volume MOD BP102 cm 62-150 cm (M) / 46-106 cm (F) LV Systolic Volume MOD BP 44.2 cm21-61 cm (M) / 14-42 cm (F) LV Ejection Fraction MOD BP 56.7 %52-72 (M) / 54-74 (F) LV Stroke Volume MOD BP 58 cm LV Cardiac Output MOD [id number] cm/min LV Cardiac Index MOD BP 1752 cm/minm LA Volume 58.6 cm LA Volume Index 29 cm/m 16 - 34 cm/m LV Mass by linear mwytnc829 g LV Mass by linear method Index54.3 g/m Ascending Aorta Diameter4.1 cm DOPPLER LVOT Peak Ihgnozlf242 cm/s LVOT Peak Gradient4.7 mmHg LVOT Mean Izwefsgf21.1 cm/s LVOT Mean Gradient2 mmHg LVOT Velocity Time Integral 23.2 cm LVOT Stroke Vppnzv93.8 cm Mitral E Point Velocity 81.2 cm/s Mitral A Point Velocity 71.1 cm/s Mitral E to A Ratio 1.1 TR Peak Lkeivufk390 cm/s TR Peak Hixhlwas30.1 mmHg LV E' Lateral Velocity8.8 cm/s Mitral E to LV E' Lateral Ratio 9.2 LV E' Septal Velocity 5.6 cm/s Mitral E to LV E' Septal Ratio14.4 FINDINGS Left Ventricle Poor endocardial visualization. Normal left ventricular size. Normal left ventricular wall thickness. Normal left ventricular systolic function. Left ventricular ejection fraction is 55-59%. There are no regional wall motion abnormalities noted. Impaired LV relaxation, normal LV filling pressures. Right Ventricle Grossly normal right ventricular size and function. S' 8cm/s. Right Atrium Grossly normal right atrial size. Left Atrium Normal left atrial size. IAS Mitral Valve Normal mitral valve. Mild mitral regurgitation. Aortic Valve The aortic valve is trileaflet and opens well. No significant aortic stenosis or regurgitation by Doppler assessment. Tricuspid Valve Normally structured tricuspid valve. Trace tricuspid regurgitation. Insufficient TR jet to estimate pulmonary artery systolic pressure. Pulmonic Valve Pulmonic valve not well visualized. Pericardium No pericardial effusion. Echo free space anterior to the right ventricle likely represents a fat pad. Aorta Normal size aortic root. Mildly dilated proximal ascending aorta (tube). It measures 3.8 cm. IVC The inferior vena cava is normal in size with greater than 50% respiratory change in dimension, consistent with RA pressure 0-5 mmHg. CONCLUSIONS No prior study for comparison Normal LV function, EF 55-59%. No gross wall motion abnormalities Normal RV Mildly dilated ascending aorta at 3.8 cm. No significant valve abnormalities. Antoinette Weldon MD Edited by:Antoinette Weldon MD (Electronically Signed) Final Date:10 April 2018 11:11 2D ECHO LV Diastolic Diameter PLAX3.8 cm4.2-5.8 (M) / 3.8-5.2 (F) LV Systolic Diameter PLAX 2.3 cm2.5-4.0 (M) / 2.2-3.5 (F) LV Fractional Shortening PLAX 38.6 % IVS Diastolic Thickness 0.92 cm 0.6-1.0 (M) / 0.6-0.9 (F) LVPW Diastolic Thickness0.99 cm 0.6-1.0 (M) / 0.6-0.9 (F) LV Relative Wall Thickness0.51<=0.42 LVOT Diameter 2.2 cm Aortic Root Diameter3.7 cm LV Diastolic Volume MOD BP102 cm 62-150 cm (M) / 46-106 cm (F) LV Systolic Volume MOD BP 44.2 cm21-61 cm (M) / 14-42 cm (F) LV Ejection Fraction MOD BP 56.7 %52-72 (M) / 54-74 (F) LV Stroke Volume MOD BP 58 cm LV Cardiac Output MOD [id number] cm/min LV Cardiac Index MOD BP 1752 cm/minm LA Volume 58.6 cm LA Volume Index 29 cm/m 16 - 34 cm/m LV Mass by linear foobif364 g LV Mass by linear method Index54.3 g/m Ascending Aorta Diameter4.1 cm DOPPLER LVOT Peak Xartwenv824 cm/s LVOT Peak Gradient4.7 mmHg LVOT Mean Heefqmdy83.1 cm/s LVOT Mean Gradient2 mmHg LVOT Velocity Time Integral 23.2 cm LVOT Stroke Npqzcj52.8 cm Mitral E Point Velocity 81.2 cm/s Mitral A Point Velocity 71.1 cm/s Mitral E to A Ratio 1.1 TR Peak Vyjvwqak540 cm/s TR Peak Hyagjexq51.1 mmHg LV E' Lateral Velocity8.8 cm/s Mitral E to LV E' Lateral Ratio 9.2 LV E' Septal Velocity 5.6 cm/s Mitral E to LV E' Septal Ratio14.4 04/10/2018 [facility] 12 LEAD EKG 12 LEAD EKG FOR [facility] Test Date:2018-04-09 [facility] [id number] : [id number] Gender: FTechnician: [id number] :1960 Requested By: BARRY GREGG Order Number: [id number] MD: Edy Manley M.D. Measurements IntervalsAxis Rate: 71 P:32 MI: 201QRS:-18 QRSD: 89 T:50 QT: 431 QTc:471 Interpretive Statements SINUS RHYTHM Electronically Signed On 04-10-2018 5:26:54 FASHION MODEL by Edy Manley M.D. 04/10/2018 [facility] TROPONIN I Troponin I <0.03 <0.04 ng/mL 04/09/2018 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 Measurements IntervalsAxis Rate: 60 P:27 MI: 189QRS:-13 QRSD: 93 T:52 QT: 449 QTc:452 Interpretive Statements SINUS RHYTHM Electronically Signed On 04-09-2018 8:51:06 FASHION MODEL by Antoinette Weldon M.D. 04/09/2018 [facility] 12 LEAD EKG 12 LEAD EKG FOR P [facility] Test Date:2018-04-09 Pat Name: DOMINIC Lopez: [id number] : Gender: FTechnician: [id number] :1960 Requested By: BARRY GREGG Order Number: [id number] MD: Edy Manley M.D. Measurements IntervalsAxis Rate: 67 P:15 MI: 183QRS:-20 QRSD: 85 T:63 QT: 426 QTc:451 Interpretive Statements SINUS RHYTHM Reviewed by Electronically Signed On 04-09-2018 4:58:44 FASHION MODEL by Edy Manley M.D. 04/09/2018 [facility] GLUCOSE POC Glucose POC 101 74 - 106 03/22/2018 [facility] POC RAPID HIV Rapid HIV Result negative 03/22/[address] [facility] POC RAPID HIV Rapid HIV Control pass 03/22/2018 [facility] Pathology Reports No Data Provided for This Section Diagnostic Reports Report Value Date Source XRAY CHEST 2 VIEWS IMPRESSION: No acute thoracic abnormality. If the report is "FINALIZED" it indicates that the attending/staffradiologist has reviewed the images and agrees with the resident'sinterpretation. Dictated By: Fransisco Lewis MD, 04/17/2018 10:01 PM I have reviewed the study and agree with the findings in this report. Signed By: Lady Smith MD, 04/17/2018 10:20 PM EXAMINATION:XRAY CHEST 2 VIEWS, Frontal and lateralINDICATION: chest pain COMPARISON:Chest x-ray dated 04/09/2018 and CTA dated 04/10/2018FINDINGS: TUBES/LINES:None LUNGS:No consolidations or edema. Left linear opacity compat iblesubsegmental atelectasis. PLEURA:No effusions or pneumothorax. HEART/MEDIASTINUM:Focally tortuous descending thoracic aorta, stable. MUSCULOSKELETAL:No acute findings. UPPER ABDOMEN: Normal Interface, Rad/Mammog In - 04/17/2018 10:25 PM CSTEXAMINATION: XRAY CHEST 2 VIEWS, Frontal and lateral INDICATION: chest pain COMPARISON: Chest x-ray dated 04/09/2018 and CTA dated 04/10/2018 FINDINGS: TUBES/LINES: None LUNGS: No consolidations or edema. Left linear opacity compatible subsegmental atelectasis. PLEURA: No effusions or pneumothorax. HEART/MEDIASTINUM: Focally tortuous descending thoracic aorta, stable. MUSCULOSKELETAL: No acute findings. UPPER ABDOMEN: Normal IMPRESSION IMPRESSION: No acute thoracic abnormality. If the report is "FINALIZED" it indicates that the attending/staff radiologist has reviewed the images and agrees with the resident's interpretation. Dictated By: Fransisco Lewis MD, 04/17/2018 10:01 PM I have reviewed the study and agree with the findings in this report. Signed By: Lady Smith MD, 04/17/2018 10:20 PM 04/18/2018 [facility] CTA CHEST AORTA IMPRESSION:1.Tortuous thoracic aorta accounting for abnormality on chestradiograph.There is no acute aortic pathology. 2.Two 2 mm solid pulmonary nodules in the left upper and lower lobes.According to the 2017 Fleischner criteria, if patient is of low risk,advise no further followup. If patient is of high risk,CT chest in 1year is optional. Dictated By: Alondra Mosquera MD, 04/10/2018 7:59 PM I have reviewed the study and agree with the findings in this report. Signed By: Jailene Westfall MD, 04/10/2018 10:09 PM EXAM: CTA of the Thoracic Aorta WITH Contrast INDICATION: chest pain, aortic tortuosity on CXRCOMPARISON: Chest radiograph 04/09/2018. TECHNIQUE: Multi- detector CT technology was employed. CTA Gated axialimaging of the chest was performed after the administration of IVcontrast. IV CONTRAST: 100 mL Omnipaque 350ORAL CONTRAST: NoneCOMPLICATIONS: None RADIATION DOSE: Total DLP: 757 mGy*cm Estimated effective dose: (DLP x 0.015 x size factor) mSv CTDIvol has been reviewed. It is below the limits set by theRadiation Protocol Committee (RPC). For optimization of anatomic evaluation, multiplanar reconstruction,maximum intensity projections, and advanced 3-D off-line postprocessingwere performed on a dedicated stand-alone workstation under the directsupervision of the interpreting physician. FINDINGS:Potential study limitations: None. LINES/ TUBES: None. VASCULAR WITH ADVANCED 3-D OFF-LINE POSTPROCESSING:Aortic valve morphology appears trileaflet without calcifications butpoorly assessed on this nongated study. Very tortuous thoracic aorta but otherwise normal caliber and contour. There is no acute aortic pathology, such as dissection, intramuralhematoma, or contained rupture. Aortic plaques: None. The arch vessel branching pattern is conventional.All of the archbranch vessels appear widely patent in their proximal portions. Playground Attendant dimensions of the thoracic aorta are as follows:2.5 x 1.6 cm at the aortic annulus3.3 x 3.4 cm at the sinuses of Valsalva (the sinotubular junction ispreserved)3.3 x 3.3 cm at the mid ascending aorta3.3 x 3.1 cm at the distal ascending aorta2.7 x 2.7 cm at the mid transverse arch2.5 x 2 cm at the proximal descending thoracic aorta2.1 x 1.9 cm at the diaphragmatic hiatus. LUNGS AND AIRWAYS:Minimal scattered scarring versus atelectasis.Punctate calcified granulomas in the right lower and left upper lobe(series 5, image 15). 2 mm left upper lobe solid nodule (series 5, image35). 2 mm left lower lobe solid nodule (series 5, image 67). Airways arepatent. PLEURA: No pleural effusions. No pneumothorax.. HEART AND MEDIASTINUM: 0.3 cm hypodensity in the left thyroid lobe(series 5, image 10).No lymphadenopathy.The main pulmonary artery isnormal in size. Normal heart size with mild pericardial fluid. There are no distinct coronary calcifications identified, though this study was not optimizedfor coronary artery evaluation. LIMITED ABDOMEN: Unremarkable BONES: Mild degenerative changes of the midthoracic spine. Soft tissues:Unremarkable. Interface, Rad/Mammog In - 04/10/2018 10:14 PM CSTEXAM: CTA of the Thoracic Aorta WITH Contrast INDICATION: chest pain, aortic tortuosity on CXR COMPARISON: Chest radiograph 04/09/2018. TECHNIQUE: Multi-detector CT technology was employed. CTA Gated axial imaging of the chest was performed after the administration of IV contrast. IV CONTRAST: 100 mL Omnipaque 350 ORAL CONTRAST: None COMPLICATIONS: None RADIATION DOSE: Total DLP: 757 mGy*cm Estimated effective dose: (DLP x 0.015 x size factor) mSv CTDIvol has been reviewed. It is below the limits set by the Radiation Protocol Committee (RPC). For optimization of anatomic evaluation, multiplanar reconstruction, maximum intensity projections, and advanced 3-D off-line postprocessing were performed on a dedicated stand-alone workstation under the direct supervision of the interpreting physician. FINDINGS: Potential study limitations: None. LINES/ TUBES: None. VASCULAR WITH ADVANCED 3-D OFF-LINE POSTPROCESSING: Aortic valve morphology appears trileaflet without calcifications but poorly assessed on this nongated study. Very tortuous thoracic aorta but otherwise normal caliber and contour. There is no acute aortic pathology, such as dissection, intramural hematoma, or contained rupture. Aortic plaques: None. The arch vessel branching pattern is conventional. All of the arch branch vessels appear widely patent in their proximal portions. Playground Attendant dimensions of the thoracic aorta are as follows: 2.5 x 1.6 cm at the aortic annulus 3.3 x 3.4 cm at the sinuses of Valsalva (the sinotubular junction is preserved) 3.3 x 3.3 cm at the mid ascending aorta 3.3 x 3.1 cm at the distal ascending aorta 2.7 x 2.7 cm at the mid transverse arch 2.5 x 2 cm at the proximal descending thoracic aorta 2.1 x 1.9 cm at the diaphragmatic hiatus. LUNGS AND AIRWAYS: Minimal scattered scarring versus atelectasis. Punctate calcified granulomas in the right lower and left upper lobe (series 5, image 15). 2 mm left upper lobe solid nodule (series 5, image 35). 2 mm left lower lobe solid nodule (series 5, image 67). Airways are patent. PLEURA: No pleural effusions. No pneumothorax.. HEART AND MEDIASTINUM: 0.3 cm hypodensity in the left thyroid lobe (series 5, image 10). No lymphadenopathy. The main pulmonary artery is normal in size. Normal heart size with mild pericardial fluid. There are no distinct coronary calcifications identified, though this study was not optimized for coronary artery evaluation. LIMITED ABDOMEN: Unremarkable BONES: Mild degenerative changes of the midthoracic spine. Soft tissues: Unremarkable. IMPRESSION IMPRESSION: 1. Tortuous thoracic aorta accounting for abnormality on chest radiograph. There is no acute aortic pathology. 2. Two 2 mm solid pulmonary nodules in the left upper and lower lobes. According to the 2017 Fleischner criteria, if patient is of low risk, advise no further followup. If patient is of high risk, CT chest in 1 year is optional. Dictated By: Alondra Mosquera MD, 04/10/2018 7:59 PM I have reviewed the study and agree with the findings in this report. Signed By: Jailene Westfall MD, 04/10/2018 10:09 PM 04/11/2018 [facility] MYOCARDIAL PERFUSION SPECT REST/STRES SINGLE MYOCARDIAL PERFUSION SPECT REST/STRES SINGLE Myocardial Perfusion Report DOMINIC BRISCOE Age:57Gender:F :1960 Exam Date: 04/10/2018 14:00 Exam Location:[facility] Ordering Phys: SHILPI UNGER Referring Phys: Reading Phys:Kaci Gavin MD Fellow Phys: Tim Tavarez M.D. Fellow Phys: Resident: Technologist:Darya Groves Reason For Exam: Indications:Chest pain, unspecified ICD-9 Codes:R07.9 Exam Type: Myocardial Perfusion Report Procedure CPT: 85775 Additional CPT: BP:/HR: Risk Factors: Previous Cardiac Procedures: Cardiac History: No cardiac risk factors Pertinent Meds: Meds past 24 hrs: Pretest Chest Pain: Atypical angina CARDIOLOGY STRESS TEST Pharmacologi Cardiology exercise stress test results pending under separate report. Please look in [facility] under the Procedures Tab in Chart Review. IMAGE PROTOCOLStress Only Radiopharmaceutical Dose (mCi)Duration (min)Img Date Img Time Rest: REST DATE Stress: Tc-99m13.8STRESS [id number] Tetrofosmin Administration Site:Right antecubital fossa SPECT RESULTS Technical Quality:Adequate Raw Data Analysis: Stress Perfusion Rest Perfusion Summed Stress Score:0Summed Rest Score: 0 Summed Difference Score: 0 0 - Normal 2 - Abnormal Uptake 4 - Absent 1 - Mildly Reduced Uptake 3 - Severely Reduced Tracer Uptake X - Not Interpretable RV: SPECT images demonstrate homogeneous tracer distribution throughout the myocardium. FUNCTION (calculated via Gated SPECT) Resting LV EF:% EDV:66 ml(70-100 ml) Post Stress LV EF: 77% TID: ESV:15 ml (30-50 ml) Technical Quality: LV Size and Function: Gated SPECT LVEF is overestimated due to the scintigraphic obliteration of the small left ventricular cavity. Visual analysis indicates that the LVEF is well within the normal range of >54%. LV Regional Function: Normal left ventricular wall motion and thickening. Other Findings: Variable Not Implemented IMPRESSIONS 1. Myocardial perfusion imaging is normal. 2. No scan evidence of ischemia or scar. 3. Overall left ventricular function is normal with normal wall motion. 4. Normal gated SPECT left ventricular ejection fraction of >54%. 5. Normal left ventricular size. 6. No previous study for comparison. 7. Please see ECG report in [facility] for details of tracing interpretation. [place] Control: Do not remove! Kaci Gavin MD (Electronically Signed) Final Date:10 April 2018 14:38 SMS 04/10/2018 [facility] Consultation Notes No Data Provided for This Section Discharge Summaries No Data Provided for This Section History and Physicals No Data Provided for This Section Vital Signs Vital Sign Value Date Comments Source Systolic (mm Hg) 117 08/14/2018 [facility] Diastolic (mm Hg) 70 08/14/2018 [facility] Heart Rate 54 08/14/2018 [facility] Temperature Oral (F) 36.61 Le 08/14/2018 [facility] Respitory Rate 18 08/14/2018 [facility] Height 170.2 cm 08/14/2018 [facility] Weight 87.998 08/14/2018 [facility] Systolic (mm Hg) 126 05/30/2018 [facility] Diastolic (mm Hg) 84 05/30/2018 [facility] Heart Rate 61 05/30/2018 [facility] Temperature Oral (F) 37 Le 05/30/2018 [facility] Respitory Rate 18 05/30/2018 [facility] Height 170.2 cm 05/30/2018 [facility] Weight 87.998 05/30/2018 [facility] Encounters Location Location Details Encounter Type Encounter Number Reason For Visit Attending Provider ADM Date DC Date Status Source [facility] Orders Only [id number] [facility] CONTROL ANALYST 03/22/2018 [facility] Family Practice Office Visit [id number] [facility] CONTROL ANALYST 03/22/2018 04/05/2018 [facility] PSYCHIATRY Office Visit [id number] Kaci Cruz MD 03/26/2018 03/26/2018 [facility] Travel [id number] 04/08/2018 [facility]S Behavioral Health/Counseling Telephone [id number] Karuna Metzger 04/08/2018 [facility] BT 5B Med/Surg Emergency [id number] Barry Gregg MD 04/09/2018 04/11/2018 [facility] Travel [id number] 04/17/2018 [facility] Emergency [place] [facility] Emergency [id number] Alondra Madrid MD 04/18/2018 04/18/2018 [facility] Emergency [place] [facility] Emergency [id number] Sushil ARIAS 04/18/2018 04/19/2018 [facility] LOTS PSYCHIATRY Telephone [id number] Kaci Cruz MD 04/25/2018 [facility] Orders Only [id number] Mia Garnett CONTROL ANALYST 04/29/2018 [facility] Travel [id number] 04/29/2018 [facility] Obstetrics [facility] Ancillary Procedure [id number] Mia Garnett CONTROL ANALYST 04/29/2018 04/29/2018 [facility] Office Visit [id number] Mia Garnett CONTROL ANALYST 04/29/2018 04/29/2018 [facility] Laboratory [facility] Lab Appointment [id number] Mia Garnett CONTROL ANALYST 04/29/2018 04/29/2018 [facility] PSYCHIATRY Office Visit [id number] Kaci Cruz MD 04/30/2018 04/30/2018 [facility] PSYCHIATRY Office Visit [id number] Kaci Cruz MD 05/21/2018 05/21/2018 [facility] ASK YOUR NURSE PROGRAM Nurse Triage [id number] Rolf Moctezuma RN 05/24/2018 [facility] Refill [id number] Rebeka SHAHN 05/24/2018 [facility] Travel [id number] 05/24/2018 [facility] ASK YOUR NURSE PROGRAM Nurse Triage [id number] Elizabeth Boggs RN 05/24/2018 [facility] Orders Only [id number] Mia Garnett CONTROL ANALYST 05/27/2018 [facility] Travel [id number] 05/30/2018 [facility] Office Visit [id number] Mia Garnett CONTROL ANALYST 05/30/2018 05/30/2018 [facility] PSYCHIATRY Orders Only [id number] aKci Cruz MD 07/04/2018 [facility] Refill [id number] Mia Garnett CONTROL ANALYST 07/05/2018 [facility] Travel [id number] 07/31/2018 [facility] Emergency [place] [facility] Emergency [id number] Kassandra Sue MD 08/01/2018 08/01/2018 [facility] ADM Outside Medical Services Telephone [id number] Dorene Sampson 08/07/2018 [facility] ADM Outside Medical Services Telephone [id number] Chioma Hobbs 08/13/2018 [facility] Psychiatric [facility] Office Visit [id number] Anna Lopes MD 08/14/2018 08/14/2018 [facility] ADM Outside Medical Services Telephone [id number] Chioma Hobbs 08/15/2018 [facility] Family Practice [facility] Refill [id number] Corry Frausto MD 08/16/2018 [facility] Procedures Procedure Code Date Perfomer Comments Source HEMOGLOBIN A1C 56859 04/30/2018 [facility] HEPATITIS PANEL 82475 04/30/2018 [facility] LIPID PROFILE [id number] 04/30/2018 [facility] LIVER PROFILE 09530 04/30/2018 [facility] TSH 67486 04/30/2018 [facility] FREE T4 52869 04/30/2018 [facility] FSH/LH 18774 04/30/2018 [facility] UA CHEMISTRIES 69351 04/30/2018 [facility] URINE DRUG SCREEN 70515 04/30/2018 [facility] MAMMOGRAM BILAT SCREEN DIGITAL G0202 04/30/[address] [facility] HIV-1/HIV-2 ROUTINE SCREENING [id number] 04/19/2018 [facility] HIV-1/HIV-2 DIAGNOSTIC/SYMPTOMATIC 73393 04/18/2018 [facility] D-DIMER 49610 04/18/2018 [facility] CTA CHEST AORTA 39079 04/11/2018 [facility] BASIC METABOLIC PANEL 95917 04/11/2018 [facility] MYOCARDIAL PERFUSION SPECT REST/STRES SINGLE 20113 04/11/2018 [facility] TREADMILL STRESS-TRACING ONLY 28837 04/10/2018 [facility] TRANSTHORACIC ECHO (TTE) 43313 04/10/2018 [facility] CONSULT CLINICAL CASE MANAGEMENT (RN/SW) [id number] 04/10/2018 [facility] TROPONIN I 67469 04/09/2018 [facility] XRAY CHEST 2 VIEWS 29914 04/09/2018 [facility] 12 LEAD EKG 35821 04/09/2018 [facility] BMP POC 03512 04/09/2018 [facility] TROPONIN I POC 99312 04/09/[address] CBC/DIFF 25138 04/09/[address] [facility] POC RAPID HIV [id number] 03/22/[address] [facility] GLUCOSE POC 61547 03/22/[facility] Assessment and Plan No Data Provided for This Section Plan of Care Plan of Care Date Source Breast Cancer Scrn (Yearly) 04/29/2019 [facility] IMM Influenza Seasonal Jan to June (>/=19 yrs) 01/21/2019 [facility] Colorectal Cancer Scrn Annual (FIT/FOBT) Age 50 to [address] [facility] Cervical Cancer Scrn (3 Yrs) 1981 [facility] Social History Social History Date Source Tobacco UseTypesPacks/DayYears UsedDate Never Smoker Smokeless Tobacco: Never Used Tobacco Cessation: Counseling Given: Yes Alcohol UseDrinks/Weekoz/WeekComments Yes 2-3 full glasses of wine, 3 times per week Alcohol HabitsAnswerDate Recorded How often do you have a drink containing alcohol? Not asked How many drinks containing alcohol do you have on a typical day when you are drinking? 3 or 4 04/09/2018 How often do you have six or more drinks on one occasion? Not asked Sex Assigned at BirthDate Recorded Not on file Job Start DateOccupationIndustry Not on file Not on file Not on file Travel HistoryTravel StartTravel End No recent travel history available. 08/14/2018 [facility] Family History Value Date Source Medical HistoryRelationNameComments Unknown Fam Hx Brother Cancer Father Diabetes Mother Heart Mother Other Mother Psychiatry Mother Arthritis Sister RelationNameStatusComments Brother Alive Father Mother Alive Sister Alive 08/27/2018 [facility] Medical HistoryRelationNameComments Unknown Fam Hx Brother Cancer Father Diabetes Mother Heart Mother Other Mother Psychiatry Mother Arthritis Sister RelationNameStatusComments Brother Alive Father Mother Alive Sister Alive 07/04/2018 [facility] Advance Directives Order Name Results Value Date Source Advance Directives Advance Directives For more information, please contact:[address] [id number] Code Status on FileCode StatusDate ActivatedDate InactivatedComments Full Code 04/09/2018 3:33 PM 04/11/2018 3:39 PM 08/27/2018 [facility] Advance Directives Advance Directives For more information, please contact:[facility] [place], [place] [address]Jwsgay Code Status on FileCode StatusDate ActivatedDate InactivatedComments Full Code 04/09/2018 3:33 PM 04/11/2018 3:39 PM 07/04/2018 [facility] Functional Status No Data Provided for This Section
--- OUTSIDE RECORDS SUMMARY | 2019-01-08 15:40 | XMS REPORT | Clinical Summary ---
Author Author [facility] Organization [facility] Address Unknown Phone Unavailable Care Team Providers Care Regenerator Operator Name Role Phone Mia Garnett [facility] Allergies Comments Active Allergy Reactions Severity Noted Date Adverse reaction: "gets jittery" Other reaction(s): Other (See Comments) jittery Ketorolac Hives 08/04/2014 Other reaction(s): Other (See Comments) "Red streak" Metoclopramide Hcl Rash 06/09/2012 Other reaction(s): Hives Penicillins Rash 06/09/2012 "grit my teeth" Other reaction(s): Hives, Other (See Comments) "spaced out" Pt ok with promethazine. Has taken before with no allergic reaction Prochlorperazine 06/09/2012 Medications End Date Status Medication Sig Dispensed Refills Start Date Active cyclobenzaprine Take 1 tablet 30 tablet 0 (FLEXERIL) 10 mg by mouth 9 tabletIndications: Rib nightly at pain on left side bedtime as needed for Muscle Spasms. Active topiramate (TOPAMAX) 25 Take 1 84 capsule 0 mg sprinkle capsule by 9 capsuleIndications: mouth As Migraine without aura and directed Take with status migrainosus, 25mg by mouth not intractable once daily for 1 week Then 25mg by mouth twice a day for 1 week Then 25mg by mouth in the morning and 50mg at night for 1 week Then 50mg by mouth twice a day. Active metoprolol tartrate Take 1 tablet 60 tablet 0 (LOPRESSOR) 50 mg by mouth 2 9 tabletIndications: times daily. Hypertension, well controlled Active gabapentin (NEURONTIN) Take 1 tablet 60 capsule 1 100 mg po bid. 9 capsuleIndications: Mood disorder Active QUEtiapine (SEROQUEL) 300 Take 1 tablet 30 tablet 1 mg tabletIndications: po q hs. 9 Mood disorder Active DULoxetine (CYMBALTA) 30 Take 1 30 capsule 1 mg delayed release capsule by 9 capsuleIndications: Mood mouth daily. disorder Active hydrOXYzine (ATARAX) 25 Take 2 60 tablet 2 mg tabletIndications: tablets by 9 Mood disorder mouth 2 times daily as needed for Anxiety or Insomnia. 04/11/2018 Discontinued SUMAtriptan (IMITREX) 100 Take 1 tablet 9 tablet 0 mg tabletIndications: by mouth at 6 Headache disorder onset of headache. Repeat after 2 hours if needed. Maximum 200mg/24 hours.. 04/11/2018 Discontinued [id number]-[id number] Take by mouth 30 capsule 0 50-325-40 mg every 6 hours 6 capIndications: Headache as needed for disorder Pain. 03/22/2018 Discontinued divalproex sodium Take 1,000 mg 0 (DEPAKOTE OR) by mouth at bedtime nightly. 03/26/2018 Discontinued QUEtiapine (SEROQUEL) 300 Take 600 mg 0 mg tablet by mouth at bedtime nightly. 03/26/2018 Discontinued hydrOXYzine pamoate 50 mg Take 50 mg by 0 capsule mouth 3 times daily as needed for Anxiety. 03/22/2018 Discontinued metoprolol succinate Take 50 mg by 0 (TOPROL XL) 50 mg mouth 2 times extended release tablet daily. 03/22/2018 Discontinued gabapentin (NEURONTIN) Take 600 mg 0 600 mg tablet by mouth 2 times daily. 04/11/2018 Discontinued metoprolol tartrate Take by 0 (LOPRESSOR) 50 mg tablet mouth. 03/26/2018 Discontinued traMADol (ULTRAM) 50 mg Take by 0 tablet mouth. 8 03/26/2018 Discontinued venlafaxine (EFFEXOR XR) Take by 0 75 mg extended release mouth. capsule 03/26/2018 Discontinued divalproex (DEPAKOTE) 500 Take by 0 mg extended release mouth. tablet 04/11/2018 Discontinued gabapentin (NEURONTIN) Take 1 tablet 60 tablet 0 600 mg tabletIndications: by mouth 2 8 Neuropathic pain of left times daily. lower extremity 04/11/2018 Discontinued QUEtiapine (SEROQUEL) 200 Take 1 tablet 30 tablet 0 mg tabletIndications: by mouth at 8 Mood disorder bedtime nightly. 04/11/2018 Discontinued DULoxetine (CYMBALTA) 30 Take 1 30 capsule 0 mg delayed release capsule by 8 capsuleIndications: Mood mouth daily. disorder 04/30/2018 Discontinued naltrexone (REVIA, Take 1 tablet 30 tablet 0 VIVITROL) 50 mg by mouth 8 tabletIndications: Mood daily. disorder 04/11/2018 Discontinued hydrOXYzine (ATARAX) 25 Take 1 to 2 120 tablet 0 mg tabletIndications: tabs by mouth 8 Mood disorder three times daily as needed for anxiety. 04/11/2018 Discontinued topiramate (TOPAMAX) 25 Take 1 84 capsule 0 mg sprinkle capsule by 8 capsuleIndications: mouth As Migraine without aura and directed Take with status migrainosus, 25mg by mouth not intractable once daily for 1 week Then 25mg by mouth twice a day for 1 week Then 25mg by mouth in the morning and 50mg at night for 1 week Then 50mg by mouth twice a day. 04/30/2018 Discontinued acetaminophen-codeine Take 2 20 tablet 0 (TYLENOL #3) 300-30 mg tablets by 8 per tabletIndications: mouth every 6 Intractable migraine hours as without aura and with needed for status migrainosus Pain. 04/21/2018 diazePAM (VALIUM) 5 mg Take 1 tablet 20 tablet 0 tabletIndications: by mouth 8 Depression with anxiety every 12 hours for 10 days. 05/24/2018 Discontinued metoprolol tartrate Take 1 tablet 60 tablet 0 (LOPRESSOR) 50 mg by mouth 2 8 tabletIndications: times daily. Hypertension, well controlled 05/24/2018 Discontinued gabapentin (NEURONTIN) Take 1 tablet 60 tablet 0 600 mg tabletIndications: by mouth 2 8 Neuropathic pain of left times daily. lower extremity 04/25/2018 Discontinued QUEtiapine (SEROQUEL) 200 Take 1 tablet 30 tablet 0 mg tabletIndications: by mouth at 8 Mood disorder bedtime nightly. 04/30/2018 Discontinued DULoxetine (CYMBALTA) 30 Take 1 30 capsule 0 04/11/201 mg delayed release capsule by 8 capsuleIndications: Mood mouth daily. disorder 04/11/2018 Discontinued topiramate (TOPAMAX) 25 Take 1 84 capsule 0 04/11/201 mg sprinkle capsule by 8 capsuleIndications: mouth As Migraine without aura and directed Take with status migrainosus, 25mg by mouth not intractable once daily for 1 week Then 25mg by mouth twice a day for 1 week Then 25mg by mouth in the morning and 50mg at night for 1 week Then 50mg by mouth twice a day. 04/11/2018 Discontinued topiramate (TOPAMAX) 25 Take 1 84 capsule 0 04/11/201 mg sprinkle capsule by 8 capsuleIndications: mouth As Migraine without aura and directed Take with status migrainosus, 25mg by mouth not intractable once daily for 1 week Then 25mg by mouth twice a day for 1 week Then 25mg by mouth in the morning and 50mg at night for 1 week Then 50mg by mouth twice a day. 07/05/2018 Discontinued topiramate (TOPAMAX) 25 Take 1 84 capsule 0 04/11/201 mg sprinkle capsule by 8 capsuleIndications: mouth As Migraine without aura and directed Take with status migrainosus, 25mg by mouth not intractable once daily for 1 week Then 25mg by mouth twice a day for 1 week Then 25mg by mouth in the morning and 50mg at night for 1 week Then 50mg by mouth twice a day. 04/30/2018 Discontinued QUEtiapine (SEROQUEL) 200 Take 1 tablet 30 tablet 0 mg tabletIndications: by mouth at 9 Mood disorder bedtime nightly. 05/21/2018 Discontinued QUEtiapine (SEROQUEL) 200 Take 1 tablet 30 tablet 0 201 mg tabletIndications: by mouth at 9 Mood disorder bedtime nightly. 05/21/2018 Discontinued DULoxetine (CYMBALTA) 30 Take 1 30 capsule 0 201 mg delayed release capsule by 9 capsuleIndications: Mood mouth daily. disorder 05/21/2018 Discontinued hydrOXYzine (ATARAX) 25 Take 1 tablet 90 tablet 0 201 mg tabletIndications: by mouth 3 9 Mood disorder times daily as needed for Anxiety. 07/04/2018 Discontinued QUEtiapine (SEROQUEL) 200 Take 1 tablet 30 tablet 0 05/21/201 mg tabletIndications: by mouth at 9 Mood disorder bedtime nightly. 07/04/2018 Discontinued DULoxetine (CYMBALTA) 30 Take 1 30 capsule 0 05/21/201 mg delayed release capsule by 9 capsuleIndications: Mood mouth daily. disorder 07/04/2018 Discontinued hydrOXYzine (ATARAX) 25 Take 2 120 tablet 0 201 mg tabletIndications: tablets by 9 Mood disorder mouth 2 times daily as needed for Anxiety or Insomnia. 05/27/2018 Discontinued gabapentin (NEURONTIN) Take 1 tablet 60 tablet 0 600 mg tabletIndications: by mouth 2 9 Neuropathic pain of left times daily. lower extremity 05/27/2018 Discontinued metoprolol tartrate Take 1 tablet 60 tablet 0 (LOPRESSOR) 50 mg by mouth 2 9 tabletIndications: times daily. Hypertension, well controlled 07/05/2018 Discontinued gabapentin (NEURONTIN) Take 1 tablet 60 tablet 0 600 mg tabletIndications: by mouth 2 9 Neuropathic pain of left times daily. lower extremity 07/05/2018 Discontinued metoprolol tartrate Take 1 tablet 60 tablet 0 (LOPRESSOR) 50 mg by mouth 2 9 tabletIndications: times daily. Hypertension, well controlled 08/14/2018 Discontinued QUEtiapine (SEROQUEL) 200 Take 1 tablet 7 tablet 0 201 mg tabletIndications: by mouth at 9 Mood disorder bedtime nightly. 08/14/2018 Discontinued DULoxetine (CYMBALTA) 30 Take 1 7 capsule 0 201 mg delayed release capsule by 9 capsuleIndications: Mood mouth daily. disorder 08/14/2018 Discontinued hydrOXYzine (ATARAX) 25 Take 2 28 tablet 0 201 mg tabletIndications: tablets by 9 Mood disorder mouth 2 times daily as needed for Anxiety or Insomnia. 08/14/2018 Discontinued gabapentin (NEURONTIN) Take 1 tablet 60 tablet 0 600 mg tabletIndications: by mouth 2 9 Neuropathic pain of left times daily. lower extremity Active Problems Problem Noted Date Chest pain 04/09/2018 Encounter for screening for HIV 03/22/2018 Neuropathic pain of left lower extremity 03/22/2018 Hypertension, well controlled 03/22/2018 Depression with anxiety 03/22/2018 Bipolar 1 disorder 03/22/2018 Homeless 03/22/2018 Headache disorder 01/20/2016 Left-sided headache Medication refill Intractable migraine without aura and with status migrainosus Migraine without aura and with status migrainosus, not intractable Chronic chest pain Headache, chronic daily Dehydration COHEN (dyspnea on exertion) Tachycardia Suicidal behavior with attempted self-injury Depressive disorder PTSD (post-traumatic stress disorder) Substance use disorder Encounters Care Team Description Date Type Specialty Corry Frausto MD Migraine without aura and with status migrainosus, not intractable 08/16/2018 Refill [facility] Chioma Hobbs Utilization Management () 08/15/2018 Telephone Anna Lopes MD Mood disorder 08/14/2018 Office Visit Psychiatry Chioma Hobbs Utilization Management ( f/u) 08/13/2018 Telephone Dorene Sampson Utilization Management ([facility] 08/07/2018 Telephone Kassandra Sue MD Matorin, Anu, MD Depressive disorder (Primary Dx); Suicidal behavior with attempted self-injury; Depression with anxiety; Substance use disorder; PTSD (post-traumatic stress disorder) 08/01/2018 Emergency Emergency Medicine 07/31/2018 Travel Mia Garnett NP Migraine without aura and with status migrainosus, not intractable; Neuropathic pain of left lower extremity; Hypertension, well controlled 07/05/2018 Refill [facility] Kaci Cruz MD Mood disorder 07/04/2018 Orders Only Psychiatry Mia Garnett NP Encounter to discuss test results (Primary Dx); Neck pain; Medication refill 05/30/2018 Office Visit [facility] 05/30/2018 Travel Mia Garnett NP Neuropathic pain of left lower extremity; Hypertension, well controlled 05/27/2018 Orders Only Family Practice Rolf Moctezuma, NATHAN 05/24/2018 Nurse Triage Rebeka Angel LVN Neuropathic pain of left lower extremity; Hypertension, well controlled 05/24/2018 Refill [facility] 05/24/2018 Travel Elizabeth Boggs RN 05/24/2018 Nurse Triage Kaci Cruz MD Mood disorder (Primary Dx) 05/21/2018 Office Visit Psychiatry Kaci Cruz MD Mood disorder (Primary Dx) 04/30/2018 Office Visit Psychiatry Mia Garnett NP Encounter to establish care; Night sweats 04/29/2018 Lab Appointment Lab Mia Garnett NP Encounter to establish care (Primary Dx); Hospital discharge follow-up; Screen for colon cancer; Night sweats; Right calf pain; Rib pain on left side 04/29/2018 Office Visit Family Practice Mia Garnett NP Screen for colon cancer 04/29/2018 Ancillary Radiology Procedure Mia Garnett NP Right calf pain 04/29/2018 Orders Only Family Practice 04/29/2018 Travel Kaci Cruz MD Refill Request 04/25/2018 Telephone Psychiatry Sushil Daniels Jr., PA Tachycardia (Primary Dx); COHEN (dyspnea on exertion); Dehydration 04/18/2018 Emergency Emergency Medicine Alondra Madrid MD Dark, Cedric K, MD Headache, chronic daily (Primary Dx); Chronic chest pain; Medication refill 04/17/2018 Emergency Emergency Medicine - 04/18/2018 04/17/2018 Travel Barry Gregg MD Khan, Riaz U, MD Migraine without aura and with status migrainosus, not intractable (Primary Dx); Left-sided headache; Chest pain, unspecified type; Intractable episodic headache, unspecified headache type; Intractable migraine without aura and with status migrainosus; Depression with anxiety; Neuropathic pain of left lower extremity; Mood disorder; Hypertension, well controlled 04/09/2018 Emergency - 04/11/2018 04/08/2018 Travel Karuna Metzger I 04/08/2018 Telephone Psychology Kaci Cruz MD Mood disorder (Primary Dx) 03/26/2018 Office Visit Psychiatry Alyssa Pineda NP Neuropathic pain of left lower extremity (Primary Dx); Flu vaccine need; Encounter for screening for HIV; Pap smear of cervix declined because of other reasons; Screen for colon cancer; Screening for breast cancer; Routine health maintenance; Hypertension, well controlled; Depression with anxiety; Bipolar 1 disorder; Homeless 03/22/2018 Office Visit Family Practice Alyssa Pineda NP Depression with anxiety; Bipolar 1 disorder 03/22/2018 Orders Only Family Practice after 08/26/2017 Immunizations Name Dates Previously Given Next Due Influenza, 03/22/2018 Vaccine<FLUCELVAX>(Multi- Dose) Family History Medical History Relation Name Comments Unknown Fam Hx Brother Cancer Father Diabetes Mother Heart Mother Other Mother Psychiatry Mother Arthritis Sister Relation Name Status Comments Brother Alive Father Mother Alive Sister Alive Social History Date Tobacco Use Types Packs/Day Years Used Never Smoker Smokeless Tobacco: Never Used Tobacco Cessation: Counseling Given: Yes Alcohol Use Drinks/Week oz/Week Comments Yes 2-3 full glasses of wine, 3 times per week Alcohol Habits Answer Date Recorded How often do you have a drink containing alcohol? Not asked How many drinks containing alcohol do you have on 3 or 4 04/09/2018 a typical day when you are drinking? How often do you have six or more drinks on one Not asked occasion? Sex Assigned at Date Recorded Not on file Industry Job Start Date Occupation Not on file Not on file Not on file Travel End Travel History Travel Start No recent travel history available. Last Filed Vital Signs Time Taken Vital Sign Reading 08/14/2018 8:12 AM CDT Blood Pressure 117/70 08/14/2018 8:12 AM CDT Pulse 54 08/14/2018 8:12 AM CDT Temperature 36.6 C (97.9 F) 08/14/2018 8:12 AM CDT Respiratory Rate 18 08/01/2018 4:47 PM CDT Oxygen Saturation 98% - Inhaled Oxygen - Concentration 08/14/2018 8:12 AM CDT Weight 88 kg (194 lb) 08/14/2018 8:12 AM CDT Height 170.2 cm (5' 7") 08/14/2018 8:12 AM CDT Body Mass Index 30.38 Plan of Treatment Health Maintenance Due Date Last Done Comments Cervical Cancer Scrn (3 1981 Yrs) Colorectal Cancer Scrn 2010 Annual (FIT/FOBT) Age 50 to 75 IMM Influenza Seasonal 01/21/2019 03/22/2018 Oct to June (>/=19 yrs) Breast Cancer Scrn 04/29/2019 04/29/2018 (Yearly) Procedures Comments Procedure Name Priority Date/Time Associated Diagnosis BMP POC Routine 08/01/2018 3:23 AM CDT UA CHEMISTRIES STAT 08/01/2018 3:15 AM CDT URINE DRUG SCREEN STAT 08/01/2018 3:15 AM CDT CBC/DIFF STAT 08/01/2018 3:15 AM CDT URINE DRUG SCREEN Routine 05/21/2018 Mood disorder 9:31 AM [employer] FSH/LH Routine 04/29/2018 Night sweats 3:31 PM [employer] FREE T4 Routine 04/29/2018 Night sweats 3:31 PM [employer] TSH Routine 04/29/2018 Encounter to establish 3:31 PM [employer] care Night sweats LIVER PROFILE Routine 04/29/2018 Encounter to establish 3:31 PM [employer] care LIPID PROFILE Routine 04/29/2018 Encounter to establish 3:31 PM [employer] care HIV-1/HIV-2 ROUTINE Routine 04/29/2018 Encounter to establish SCREENING 3:31 PM [employer] care HEPATITIS PANEL Routine 04/29/2018 Encounter to establish 3:31 PM [employer] care HEMOGLOBIN A1C Routine 04/29/2018 Encounter to establish 3:31 PM [employer] care BASIC METABOLIC PANEL Routine 04/29/2018 Encounter to establish 3:31 PM [employer] care URINE DRUG SCREEN Routine 04/29/2018 Encounter to establish 3:23 PM [employer] care UA CHEMISTRIES Routine 04/29/2018 Encounter to establish 3:23 PM [employer] care MAMMOGRAM BILAT SCREEN Routine 04/29/2018 Screen for colon cancer DIGITAL 1:50 PM [employer] BMP POC Routine 04/18/2018 2:49 PM [employer] TROPONIN I POC Routine 04/18/2018 2:31 PM [employer] HIV-1/HIV-2 ROUTINE STAT 04/18/2018 SCREENING 2:27 PM [employer] CBC/DIFF STAT 04/18/2018 2:27 PM [employer]CH[employer]IC 12 LEAD EKG Routine 04/18/2018 2:11 PM [employer] TROPONIN I POC Routine 04/18/2018 3:56 AM AIR [employer]CH[employer]IC TROPONIN I POC Routine 04/18/2018 12:55 AM AIR [employer]CH[employer]IC BMP POC Routine 04/18/2018 12:30 AM [employer]CH[employer] D-DIMER STAT 04/18/2018 12:10 AM [employer] MECH[employer]IC CBC/DIFF STAT 04/18/2018 12:10 AM [employer] HIV-1/HIV-2 STAT 04/18/2018 DIAGNOSTIC/SYMPTOMATIC 12:10 AM [employer]CH[employer] XRAY CHEST 2 VIEWS STAT 04/17/2018 Chronic chest pain 9:53 PM [employer] 12 LEAD EKG Routine 04/17/2018 3:02 PM [employer] CTA CHEST AORTA STAT 04/10/2018 Chest pain, unspecified 6:40 PM [employer] type BASIC METABOLIC PANEL STAT 04/10/2018 2:30 PM [employer] MYOCARDIAL PERFUSION Routine 04/10/2018 SPECT REST/STRES SINGLE 1:52 PM [employer] TREADMILL STRESS-TRACING 04/10/2018 ONLY 11:23 AM [employer]CH[employer]IC TRANSTHORACIC ECHO (TTE) STAT 04/10/2018 9:20 AM [employer] CONSULT CLINICAL CASE Discharge 04/10/2018 MANAGEMENT (RN/SW) Today 8:49 AM [employer]CH[employer] TROPONIN I POC Routine 04/09/2018 10:26 AM [employer]CH[employer] TROPONIN I STAT 04/09/2018 10:15 AM [employer]CH[employer]IC 12 LEAD EKG STAT 04/09/2018 9:56 AM [employer]CH[employer]IC TROPONIN I POC Routine 04/09/2018 7:31 AM AIR [employer]CH[employer]IC TROPONIN I STAT 04/09/2018 7:22 AM AIR [employer]CH[employer]IC 12 LEAD EKG STAT 04/09/2018 6:41 AM [employer]CH[employer]IC TROPONIN I POC Routine 04/09/2018 6:40 AM [employer]CH[employer]IC XRAY CHEST 2 VIEWS STAT 04/09/2018 Migraine without aura and 4:38 AM [employer] with status migrainosus, not intractable 12 LEAD EKG STAT 04/09/2018 4:08 AM [employer]CH[employer]IC BMP POC Routine 04/09/2018 3:13 AM [employer]IC TROPONIN I POC Routine 04/09/2018 3:12 AM [employer] CBC/DIFF STAT 04/09/2018 3:07 AM [employer] POC RAPID HIV Routine 03/22/2018 Encounter for screening 10:10 AM [employer] for HIV GLUCOSE POC Routine 03/22/2018 10:09 AM [employer] after 08/26/2017 Results * BMP POC (08/01/2018 3:23 AM CDT) Only the most recent of 4 results within the time period is included. CO2 POC 22 21 - 32 mmol/L [facility] 1 Chloride POC 106 98 - 107 mmol/L [facility] 1 Potassium POC 4.6 3.50 - 5.10 mmol/L [facility] 1 Sodium POC 139 136 - 145 mmol/L [facility] 1 Glucose POC 109 (H) 74 - 106 mg/dL [facility] 1 Urea Nitrogen 18 7 - 18 mg/dL [facility] POC 1 Creatinine POC 1.0 0.6 - 1.3 mg/dL [facility] 1 Calcium Ionized 1.06 (L) 1.15 - 1.29 mmol/L [facility] POC 1 Hemoglobin POC 13.6 12.0 - 16.0 g/dL [facility] 1 Hematocrit POC 40.0 37.0 - 47.0 % [facility] 1 GFR, Estimated 57 mL/min/1.73 m2 [facility] 1 GFR, Estim, >60 mL/min/1.73 m2 [facility] Afr-Am 1 Performing Organization Address [facility] Phone Number [facility] * UA CHEMISTRIES (08/01/2018 3:15 AM CDT) Only the most recent of 2 results within the time period is included. Color Yellow [facility] 4 Clarity Clear [facility] 4 Spec [place] 1.020 1.001 - 1.035 [facility] 4 pH 5.0 5 - 8 [facility] 4 Protein 1+ (A) NEG [facility] 4 Glucose Negative NEG [facility] 4 Ketone Negative NEG [facility] 4 Bilirubin Negative NEG [facility] 4 Nitrate Negative NEG [facility] 4 Urobilinogen <1.0 0.2 - 1.0 EU/dL [facility] 4 Leukocyte Trace (A) NEG [facility] 4 Blood Negative NEG [facility] 4 RBC 3 0 - 4 /HPF [facility] 4 WBC 3 0 - 5 /HPF [facility] 4 Bacteria Few [facility] 4 Epithelial Cell 2 /HPF [facility] 4 Hyaline Cast 3 /LPF [facility] 4 Calc Ox Cristina Present [facility] 4 Specimen Urine Performing Organization Address [facility] Phone Number [facility] * URINE DRUG SCREEN (08/01/2018 3:15 AM CDT) Only the most recent of 3 results within the time period is included. Amphetamine Negative NEG [facility] Comment: 1 Calibrated Standard: D-Methamphetamine Positive if urine level >tp=3502 ng/mL Test performed on [id number] using EMIT Immunoassay Barbiturate Negative NEG [facility] Comment: 1 Calibrated Standard: Secobarbital Positive if urine level is >kj=162 ng/mL Test performed on [id number] using EMIT Immunoassay Benzodiazepine Negative NEG [facility] Comment: 1 Calibrated Standard: Lormethazepam Positive if urine level is >rd=307 ng/mL Test performed on [id number] using EMIT Immunoassay Cannabinoid Negative NEG [facility] Comment: 1 Calibrated Standard: 11 nor-delta(9)-THC carboxylic a Positive if urine level >or=50 Test performed on [id number] using EMIT Immunoassay Cocaine Positive (A) NEG [facility] Comment: 1 Calibrated Standard: Benzoylecgonine Positive if urine level >wk=053 Test performed on [id number] using EMIT Immunoassay Opiate, Ur Negative NEG [facility] Comment: 1 Calibrated Standard: Morphine Positive if urine level >jz=534 Test performed on [id number] using EMIT Immunoassay PCP Negative NEG [facility] Comment: 1 Calibrated Standard: Phencyclidine Positive if urine level >or=25 Test performed on [id number] using EMIT Immunoassay Urine Toxicology Screen results are to be used only for Medical purposes. Specimen Urine Performing Organization Address City/State/Zipcode Phone Number MISYS [facility] * CBC/DIFF (08/01/2018 3:15 AM CDT) Only the most recent of 4 results within the time period is included. WBC 4.8 4.5 - 11.0 K/uL [facility] 2 RBC 3.99 (L) 4.20 - 5.40 M/uL [facility] 2 Hemoglobin 12.0 12.0 - 16.0 g/dL [facility] 2 Hematocrit 37.6 37.0 - 47.0 % [facility] 2 MCV 94 (H) 82 - 92 fL [facility] 2 MCH 30.1 27.0 - 32.0 pg [facility] 2 MCHC 31.9 (L) 32.0 - 36.0 g/dL [facility] 2 RDW 49.3 (H) 36.4 - 46.3 fL [facility] 2 Platelet 238 150 - 400 K/uL [facility] 2 Mean Platelet 10.6 9.4 - 12.4 fL [facility] Volume 2 Percent NRBC 0.0 [facility] 2 Absolute NRBC 0.00 [facility] 2 Neutrophil 50.5 34.0 - 70.0 % [facility] 2 Lymphocyte 35.3 20.0 - 50.0 % [facility] 2 Monocyte 10.5 5.0 - 12.0 % [facility] 2 Eosinophil 3.1 0.7 - 5.0 % [facility] 2 Basophil 0.4 0.1 - 1.2 % [facility] 2 Pct Immat Gran 0.2 0.0 - 0.5 [facility] 2 Neutrophil, Abs 2.44 1.56 - 6.13 K/uL [facility] 2 Lymphocyte, Abs 1.71 1.18 - 3.74 K/uL [facility] 2 Monocyte, Abs 0.51 (H) 0.24 - 0.36 K/uL [facility] 2 Eosinophil, Abs 0.15 0.04 - 0.36 K/uL [facility] 2 Basophil, Abs 0.02 0.01 - 0.08 K/uL [facility] 2 Absol Immat 0.01 0.00 - 0.03 K/uL [facility] Gran 2 Specimen Blood Performing Organization Address [facility] Phone Number [facility] * HIV-1/HIV-2 ROUTINE SCREENING (04/29/2018 3:31 PM [employer]) Only the most recent of 2 results within the time period is included. HIV-1/HIV-2 Negative NEG [facility] 3 Performing Organization Address [facility] Phone Number [facility] MAIN-STATION 3 * HEMOGLOBIN A1C (04/29/2018 3:31 PM AIR COMPRESSOR MECHANIC) Hemoglobin A1c 5.6 4.3 - 6.1 % BT DIAGNOSTIC IMMUNOLOGY Est Average 114.0 mg/dL BT DIAGNOSTIC Gluc IMMUNOLOGY Specimen Blood Performing Organization Address [facility] Phone Number MISYS DIAGNOSTIC IMMUNOLOGY * TSH (04/29/2018 3:31 PM AIR COMPRESSOR MECHANIC) TSH 0.70 0.57 - 3.74 uIU/mL BT MAIN-STATION 1 Specimen Blood Performing Organization Address [facility] Phone Number [facility] * FREE T4 (04/29/2018 3:31 PM AIR COMPRESSOR MECHANIC) Free T4 0.81 0.61 - 1.18 ng/dl BT MAIN-STATION Comment: 1 females: 1st Trimester-0.52-1.10 ng/dL 2nd Trimester=0.45-0.99 ng/dL 3rd Trimester=0.48-0.95 ng/dL Specimen Blood Performing Organization Address [facility] Phone Number [facility] MAIN-[facility] 1 * LIVER PROFILE (04/29/2018 3:31 PM AIR COMPRESSOR MECHANIC) T Protein 8.0 6.0 - 8.3 g/dL BT MAIN-STATION 1 Albumin 4.6 3.7 - 5.3 g/dL BT MAIN-STATION 1 T Bilirubin 0.5 0.2 - 1.2 mg/dL BT MAIN-STATION 1 Alk Phos 93 34 - 104 U/L BT MAIN-STATION 1 AST 22 13 - 39 U/L BT MAIN-STATION 1 ALT 11 7 - 52 U/L BT MAIN-STATION 1 D Bilirubin 0.1 0.0 - 0.2 mg/dL BT MAIN-STATION 1 Specimen Blood Performing Organization Address [facility] Phone Number MISYS MAIN-STATION 1 * LIPID PROFILE (04/29/2018 3:31 PM AIR COMPRESSOR MECHANIC) Cholesterol 235 mg/dL BT MAIN-STATION Comment: 1 REFERENCE RANGE: Desirable: <200 mg/dL Borderline: 200-240 mg/dL High Risk: >240 mg/dL Triglyceride 156 (H) <150 mg/dL BT MAIN-STATION Comment: 1 REFERENCE RANGE: Normal: <150 mg/dL Borderline High: 150-199 mg/dL High: 200-499 mg/dL Very High: >tc=783 mg/dL HDL 61 mg/dL BT MAIN-STATION Comment: 1 Increased CHD risk: <40 mg/dL Decreased CHD risk: >60 mg/dL LDL 143 mg/dL BT MAIN-STATION Comment: 1 REFERENCE RANGE: Optimal: <100 mg/dL Near Optimal: 100-129 mg/dL Borderline High: 130-159 mg/dL High: 160-189 mg/dL Very High: >rn=090 mg/dL Specimen Blood Performing Organization Address [facility] Phone Number MISYS MAIN-STATION 1 * HEPATITIS PANEL (04/29/2018 3:31 PM AIR COMPRESSOR MECHANIC) HCV IgG Negative NEG BT MAIN-STATION 3 HBsAg Negative NEG BT MAIN-STATION 3 HAV, IgM Negative NEG BT MAIN-STATION 3 HBcAb, IgM Negative NEG BT MAIN-STATION 3 Specimen Blood Performing Organization Address [facility] Phone Number MISYS MAIN-STATION 3 * FSH/LH (04/29/2018 3:31 PM AIR COMPRESSOR MECHANIC) FSH 78.66 mIU/mL MAIN-STATION Comment: 1 REFERENCE RANGE FEMALE: POST MENOPAUSAL:16.74-113.59 Mid-follicular:3.85-8.78 Female Mid-cycle:4.54-22.51 Mid-luteal:1.79-5.12 LH 24.93 mIU/mL BT MAIN-STATION Comment: 1 REFERENCE RANGE FEMALE: POST MENOPAUSAL 10.87-58.64 Mid-follicular2.12-10.89 Mid-cycle 4.54-22.51 Mid-luteal1.79-5.1 2 Specimen Blood Performing Organization Address [facility] Phone Number MISYS BT MAIN-STATION 1 * BASIC METABOLIC PANEL (04/29/2018 3:31 PM AIR COMPRESSOR MECHANIC) Only the most recent of 2 results within the time period is included. CO2 25 21 - 31 mmol/L BT MAIN-STATION 1 Chloride 104 98 - 107 mmol/L BT MAIN-STATION 1 Potassium 4.6 3.5 - 5.1 mmol/L BT MAIN-STATION 1 Sodium 139 136 - 145 mmol/L BT MAIN-STATION 1 Glucose 93 70 - 110 mg/dL BT MAIN-STATION 1 Urea Nitrogen 14 7 - 25 mg/dL BT MAIN-STATION 1 Creatinine 1.00 0.6 - 1.2 mg/dL BT MAIN-STATION 1 Anion Gap 10 BT MAIN-STATION 1 Calcium 10.1 8.6 - 10.3 mg/dL BT MAIN-STATION 1 GFR, Estimated 57 mL/min/1.73 m2 BT MAIN-STATION 1 GFR, Estim, >60 mL/min/1.73 m2 BT MAIN-STATION Afr-Am 1 Specimen Blood Performing Organization Address [facility] Phone Number MISYS MAIN-STATION 1 * MAMMOGRAM BILAT SCREEN DIGITAL (04/29/2018 1:50 PM AIR COMPRESSOR MECHANIC) Impressions Performed At IMPRESSION: NEGATIVE SMS There is no mammographic evidence of malignancy. A 1 year screening mammogram is recommended. I have reviewed the study and agree with the findings in the report. This document has been electronically signed. Sherrie gross dd/marian:04/29/2018 14:38:02 [place] [place] Police Sergeant: Lilliana Ley [facility] letter sent: Mammography Normal Mammogram BI-RADS: 1 Negative G0202 z12.31 Narrative Performed At #[id number] - MAMMOGRAM BILAT SCREEN DIGITAL SMS BILATERAL FIRST EVER DIGITAL SCREENING MAMMOGRAM WITH CAD: 04/29/2018 CLINICAL: Screening for malignancy. No prior exams were available for comparison. There are scattered fibroglandular elements in both breasts that could obscure a lesion on mammography. Current study was also evaluated with a Computer Aided Detection (CAD) system. No significant masses, calcifications, or other findings are seen in either breast. Procedure Note Interface, Rad/Mammog In - 04/30/2018 7:51 AM AIR COMPRESSOR MECHANIC #[id number] - MAMMOGRAM BILAT SCREEN DIGITAL BILATERAL FIRST [...] This document has been electronically signed. Sherrie Hebert M.D. ks,denny/penrad:04/29/2018 14:38:02 [place] [place] Police Sergeant: Lilliana Ley, [facility] letter sent: Mammography Normal Mammogram BI-RADS: 1 Negative G0202 z12.31 Performing Organization Address City/[facility]/Zipcode Phone Number SMS * TROPONIN I POC (04/18/2018 2:31 PM AIR COMPRESSOR MECHANIC) Only the most recent of 7 results within the time period is included. Troponin POC 0.00 0.00 - 0.08 ng/mL BT MAIN-STATION 1 Performing Organization Address City/State/Zipcode Phone Number MISYS BT MAIN-STATION 1 * 12 LEAD EKG (04/18/2018 2:11 PM AIR COMPRESSOR MECHANIC) 12 LEAD EKG FOR [facility] Test Date:2018-04-18 Pat Name: DOMINIC [place] Department: 5520 Room: Gender: F Justice Professor: [id number] :[birth year] Requested By: ROSARIO RENEE Order Number: [id number] Reading MD: Edy Manley M.D. Measurements Intervals [place] Rate: 104 P: 42 CO: 201 QRS: -30 QRSD: 77 T:16 QT: 363 QTc:479 Interpretive Statements SINUS TACHYCARDIA POSSIBLE ANTERIOR MYOCARDIAL INFARCTION, PROBABLY OLD ABNORMAL RHYTHM ECG Electronically Signed On 04-18-2018 14:13:28 AIR COMPRESSOR MECHANIC by Edy Manley M.D. Performing Organization Address [facility] Phone Number SMS * HIV-1/HIV-2 DIAGNOSTIC/SYMPTOMATIC (04/18/2018 12:10 AM AIR COMPRESSOR MECHANIC) HIV-1/HIV-2 Negative NEG BT MAIN-STATION 4 Specimen Blood Performing Organization Address [facility] Phone Number MISYS BT MAIN-STATION 4 * D-DIMER (04/18/2018 12:10 AM AIR COMPRESSOR MECHANIC) D-Dimer 0.72 ug/mL,FEU BT MAIN-STATION Comment: 2 Values of quantitative d-Dimer less than 0.40 ug/mL FEU have been reported to be associated with a low probability of deep vein thrombosis/pulmonary embolism. This test alone should not be used to rule out DVT/PE. Specimen Blood Performing Organization Address [facility] Phone Number MISYS BT MAIN-STATION 2 * XRAY CHEST 2 VIEWS (04/17/2018 9:53 PM AIR COMPRESSOR MECHANIC) Only the most recent of 2 results within the time period is included. Impressions Performed At IMPRESSION: [facility] No acute thoracic abnormality. If the report is "FINALIZED" it indicates that the attending/staff radiologist has reviewed the images and agrees with the resident's interpretation. Dictated By: Fransisco Lewis MD, 04/17/2018 10:01 PM I have reviewed the study and agree with the findings in this report. Signed By: Lady Smith MD, 04/17/2018 10:20 PM Narrative Performed At EXAMINATION:XRAY CHEST 2 VIEWS, Frontal and lateral SMS INDICATION: chest pain COMPARISON:Chest x-ray dated 04/09/2018 and CTA dated 04/10/2018 FINDINGS: TUBES/LINES:None LUNGS:No consolidations or edema. Left linear opacity compatible subsegmental atelectasis. PLEURA:No effusions or pneumothorax. HEART/MEDIASTINUM:Focally tortuous descending thoracic aorta, stable. MUSCULOSKELETAL:No acute findings. UPPER ABDOMEN: Normal Procedure Note Interface, Rad/Mammog In - 04/17/2018 10:25 PM AIR COMPRESSOR MECHANIC EXAMINATION: XRAY CHEST 2 VIEWS, Frontal and lateral [...] By: Lady Smith MD, 04/17/2018 10:20 PM Performing Organization Address City/[facility] Phone Number SMS * 12 LEAD EKG (04/17/2018 3:02 PM AIR COMPRESSOR MECHANIC) 12 LEAD EKG FOR [facility] Test Date:2018-04-17 Pat Name: DOMINIC [place] Department: [facility] Room: Gender: F Justice Professor: [id number] :1961-0 18 Requested By: ASHUTOSH Muse Order Number: [id number] Reading MD: Edy Manley M.D. Measurements Intervals [place] Rate: 72 P:31 CO: 196 QRS: -5 QRSD: 90 T:49 QT: 416 QTc:456 Interpretive Statements SINUS RHYTHM LOW QRS VOLTAGE IN PRECORDIAL LEADS POSSIBLE ANTERIOR MYOCARDIAL INFARCTION, PROBABLY OLD Electronically Signed On 04-17-2018 15:32:59 AIR COMPRESSOR MECHANIC by Edy Manley M.D. Performing Organization Address [facility] Phone Number SMS * CTA CHEST AORTA (04/10/2018 6:40 PM AIR COMPRESSOR MECHANIC) Impressions Performed At IMPRESSION: [facility] 1.Tortuous thoracic aorta accounting for abnormality on chest radiograph.There is no acute aortic pathology. 2.Two 2 mm solid pulmonary nodules in the left upper and lower lobes. According to the 2017 Fleischner criteria, if patient is of low risk, advise no further followup. If patient is of high risk,CT chest in 1 year is optional. Dictated By: Alondra Mosquera MD, 04/10/2018 7:59 PM I have reviewed the study and agree with the findings in this report. Signed By: Jailene Westfall MD, 04/10/2018 10:09 PM Narrative Performed At EXAM: CTA of the Thoracic Aorta WITH Contrast SMS INDICATION: chest pain, aortic tortuosity on CXR [...] vessel branching pattern is conventional.All of the arch branch vessels appear widely patent in their proximal portions. Rn New Grad dimensions of the thoracic aorta are as [...] hiatus. LUNGS AND AIRWAYS:Minimal scattered scarring versus atelectasis. Punctate calcified granulomas [...] the left thyroid lobe (series 5, image 10).No lymphadenopathy.The main pulmonary artery is normal in size. Normal heart size with mild pericardial fluid. There are no distinct coronary calcifications identified, though this study was not optimized for coronary artery evaluation. LIMITED ABDOMEN: Unremarkable BONES: Mild degenerative changes of the midthoracic spine. Soft tissues: Unremarkable. Procedure Note Interface, Rad/Mammog In - 04/10/2018 10:14 PM AIR COMPRESSOR MECHANIC EXAM: CTA of the Thoracic Aorta WITH [...] appear widely patent in their proximal portions. Rn New Grad dimensions of the thoracic aorta are as [...] By: Jailene Westfall MD, 04/10/2018 10:09 PM Performing Organization Address City/State/Zipcode Phone Number SMS * MYOCARDIAL PERFUSION SPECT REST/STRES SINGLE (04/10/2018 1:52 PM AIR COMPRESSOR MECHANIC) MYOCARDIAL Myocardial Perfusion SMS PERFUSION SPECT Report REST/STRES DOMINIC BRISCOE Age:57Gender: F :1960 Exam Date: 04/10/2018 14:00 Exam Location:[facility] Ordering Phys: SHILPI UNGER Referring Phys: Reading Phys:Kaci Gavin MD Fellow Phys: Tim Tavarez M.D. Fellow Phys: Resident: Technologist: Darya Groves Reason For Exam: Indications: Chest pain, unspecified ICD-9 Codes:R07.9 Exam Type: Myocardial Perfusion Report Procedure CPT: 24100 Additional CPT: BP:/ HR: Risk Factors: Previous Cardiac Procedures: Cardiac History: No cardiac risk factors Pertinent Meds: Meds past 24 hrs: Pretest Chest Pain: Atypical angina CARDIOLOGY STRESS TEST Pharmacologi Cardiology exercise stress test results pending under separate report. Please look in EPIC under the Procedures Tab in Chart Review. IMAGE PROTOCOLStress Only Radiopharmaceutical Dose (mCi)Duration (min)Img Date Img Time Rest: REST DATE Stress: Tc-99m 13.8 STRESS [id number] Tetrofosmin Administration Site:Right antecubital fossa SPECT RESULTS Technical Quality:Adequate Raw Data Analysis: Stress Perfusion Rest Perfusion Summed Stress Score:0 Summed Rest Score: 0 Summed Difference Score: 0 0 - Normal 2 - Abnormal Uptake 4 - Absent 1 - Mildly Reduced Uptake 3 - Severely Reduced Tracer Uptake X - Not Interpretable RV: SPECT images demonstrate homogeneous tracer distribution throughout the myocardium. FUNCTION (calculated via Gated SPECT) Resting LV EF: % EDV:66 ml(70-100 ml) Post Stress LV EF: 77% TID: ESV:15 ml (30-50 ml) Technical Quality: LV Size & Function: Gated SPECT LVEF is overestimated due [...] comparison. 7. Please see ECG report in [facility] for details of tracing interpretation. [place] Control: Do not remove! Kaci Gavin MD (Electronically Signed) Final Date:10 April 2018 14:38 Performing Organization Address City/State/Zipcode Phone Number [facility] * TREADMILL STRESS-TRACING ONLY (04/10/2018 11:23 AM AIR COMPRESSOR MECHANIC) Stress Test [facility] Test Date:2018-04-10 Pat Name: DOMINIC [place] Department: [facility] Room: Gender: F Justice Professor: :1961-0 08-08 Requested By: RYAN GAVIN Order Number: [id number] Lela MD: Antoinette Weldon M.D. Interpretive Statements EKG [...] perfusion data. Electronically Signed On 04-18-2018 12:08:39 AIR COMPRESSOR MECHANIC by Antoinette Weldon M.D. Performing Organization Address City/State/Zipcode Phone Number SMS * TRANSTHORACIC ECHO (TTE) (04/10/2018 9:20 AM AIR COMPRESSOR MECHANIC) TRANSTHORACIC Transthoracic SMS ECHO (TTE) Echo Report DOMINIC BRISCOE Age:57 Gender: F :1960 Exam Date: 04/10/2018 09:20 Exam Location: [facility] Echo Ordering Phys: SHILPI UNGER Referring Phys:[id number] Delgado Reading Phys:Antoinette Weldon MD Fellow Phys: Saige Archer M.D. Fellow Phys: Solder Cream Maker: Marlon Claire Reason For Exam: Indications: Chest pain, unspecified ICD-9 Codes: R07.9 Exam Type: TRANSTHORACIC ECHO (TTE) Procedure CPT:28338 Addtional CPT: Ht (in): 66 BSA: 2.02HR: 61 Rhythm: Sinus rhythm Wt (lb): 188BP: 101/ 65 Technical Quality: Technically difficult study History: 57 yo F with HTN, depression presents with atypical chest pain MEASUREMENTS Normal ranges based on 95% confidence intervals for adults, some normal patients may fall outside of this range especially when indexing for BSA 2D ECHO LV Diastolic Diameter PLAX3.8 cm 4.2-5.8 (M) / 3.8-5.2 (F) LV Systolic Diameter PLAX 2.3 cm 2.5-4.0 (M) / 2.2-3.5 (F) LV Fractional Shortening PLAX 38.6 % IVS Diastolic Thickness 0.92 cm 0.6-1.0 (M) / 0.6-0.9 (F) LVPW Diastolic Thickness0 .99 cm 0.6-1.0 (M) / 0.6-0.9 (F) LV Relative Wall Thickness0.51 <=0.42 LVOT Diameter 2.2 cm Aortic Root Diameter 3.7 cm LV Diastolic Volume MOD BP102 cm 62-150 cm (M) / 46-106 cm (F) LV Systolic Volume MOD BP 44.2 cm 21-61 cm (M) / 14-42 cm (F) LV Ejection Fraction MOD BP 56.7 % 52-72 (M) / 54-74 (F) LV Stroke Volume MOD BP 58 cm LV Cardiac Output MOD [id number] cm/min LV Cardiac Index MOD BP 1752 cm/minm LA Volume 58.6 cm LA Volume Index 29 cm/m 16 - 34 cm/m LV Mass by linear [id number] g LV Mass by linear method Index54.3 g/m Ascending Aorta Diameter4. 1 cm DOPPLER LVOT Peak Velocity 108 cm/s LVOT Peak Gradient 4.7 mmHg LVOT Mean Velocity 71.1 cm/s LVOT Mean Gradient 2 mmHg LVOT Velocity Time Integral 23.2 cm LVOT Stroke Volume 89.8 cm Mitral E Point Velocity 81.2 cm/s Mitral A Point Velocity 71.1 cm/s Mitral E to A Ratio 1.1 TR Peak Velocity 207 cm/s TR Peak Gradient 17.1 mmHg LV E' Lateral Velocity 8.8 cm/s Mitral E to LV E' Lateral [...] 11:11 2D ECHO LV Diastolic Diameter PLAX3.8 cm 4.2-5.8 (M) / 3.8-5.2 (F) LV Systolic Diameter PLAX 2.3 cm 2.5-4.0 (M) / 2.2-3.5 (F) LV Fractional Shortening PLAX 38.6 % IVS Diastolic Thickness 0.92 cm 0.6-1.0 (M) / 0.6-0.9 (F) LVPW Diastolic Thickness0 .99 cm 0.6-1.0 (M) / 0.6-0.9 (F) LV Relative Wall Thickness0.51 <=0.42 LVOT Diameter 2.2 cm Aortic Root Diameter 3.7 cm LV Diastolic Volume MOD BP102 cm 62-150 cm (M) / 46-106 cm (F) LV Systolic Volume MOD BP 44.2 cm 21-61 cm (M) / 14-42 cm (F) LV Ejection Fraction MOD BP 56.7 % 52-72 (M) / 54-74 (F) LV Stroke Volume MOD BP 58 cm LV Cardiac Output MOD [id number] cm/min LV Cardiac Index MOD BP 1752 cm/minm LA Volume 58.6 cm LA Volume Index 29 cm/m 16 - 34 cm/m LV Mass by linear [id number] g LV Mass by linear method Index54.3 g/m Ascending Aorta Diameter4. 1 cm DOPPLER LVOT Peak Velocity 108 cm/s LVOT Peak Gradient 4.7 mmHg LVOT Mean Velocity 71.1 cm/s LVOT Mean Gradient 2 mmHg LVOT Velocity Time Integral 23.2 cm LVOT Stroke Volume 89.8 cm Mitral E Point Velocity 81.2 cm/s Mitral A Point Velocity 71.1 cm/s Mitral E to A Ratio 1.1 TR Peak Velocity 207 cm/s TR Peak Gradient 17.1 mmHg LV E' Lateral Velocity 8.8 cm/s Mitral E to LV E' Lateral Ratio 9.2 LV E' Septal Velocity 5.6 cm/s Mitral E to LV E' Septal Ratio14.4 Performing Organization Address [facility] Phone Number SMS * TROPONIN I (04/09/2018 10:15 AM AIR COMPRESSOR MECHANIC) Only the most recent of 2 results within the time period is included. Troponin I <0.03 <0.04 ng/mL BT MAIN-STATION 1 Specimen Blood Performing Organization Address [facility] Phone Number DONATOYS BT MAIN-STATION 1 * 12 LEAD EKG (04/09/2018 9:56 AM AIR COMPRESSOR MECHANIC) 12 LEAD EKG FOR [facility] Test Date:2018-04-09 Pat Name: [facility]: 5520 Room: [facility] Gender: F Justice Professor: [id number] :[birth year] Requested By: BARRY GREGG Order Number: [id number] Reading MD: Edy Manley M.D. Measurements Intervals [place] Rate: 71 P:32 CO: 201 QRS: -18 QRSD: 89 T:50 QT: 431 QTc:471 Interpretive Statements SINUS RHYTHM Electronically Signed On 04-10-2018 5:26:54 AIR COMPRESSOR MECHANIC by Edy Manley M.D. Performing Organization Address [facility] Phone Number [facility] * 12 LEAD EKG (04/09/2018 6:41 AM AIR COMPRESSOR MECHANIC) 12 LEAD EKG FOR [facility] Test Date:2018-04-09 Pat Name: [facility]: 5520 Room: Gender: Justice Professor: :08-08 Requested By: BARRY GREGG Order Number: [id number] Reading : Antoinette Weldon M.D. Measurements Intervals [place] Rate: 60 P:27 CO: 189 QRS: -13 QRSD: 93 T:52 QT: 449 QTc:452 Interpretive Statements SINUS RHYTHM Electronically Signed On 04-09-2018 8:51:06 AIR COMPRESSOR MECHANIC by Antoinette Weldon M.D. Performing Organization Address City/State/Zipcode Phone Number SMS * 12 LEAD EKG (04/09/2018 4:08 AM AIR COMPRESSOR MECHANIC) 12 LEAD EKG FOR SMS [facility] Test Date:2018-04-09 Pat Name: DOMINIC BRISCOE Department: 5520 Room: Gender: F Justice Professor: [id number] :[birth year] Requested By: BARRY GREGG Order Number: [id number] Reading MD: Edy Manley M.D. Measurements Intervals [place] Rate: 67 P:15 CO: 183 QRS: -20 QRSD: 85 T:63 QT: 426 QTc:451 Interpretive Statements SINUS RHYTHM Reviewed by Electronically Signed On 04-09-2018 4:58:44 AIR COMPRESSOR MECHANIC by Edy Manley M.D. Performing Organization Address City/State/Zipcode Phone Number SMS * POC RAPID HIV (03/22/2018 10:10 AM AIR COMPRESSOR MECHANIC) Rapid HIV negativeComment: fingerstick Result specimen Rapid HIV pass Control Specimen Blood * GLUCOSE POC (03/22/2018 10:09 AM AIR COMPRESSOR MECHANIC) Glucose POC 101 74 - 106 mg/dL [facility] Performing Organization Address City/State/Zipcode Phone Number MISYS [address] after 08/26/2017 Insurance Type Payer Benefit Subscriber ID Effective Phone Address Plan / Dates Group [employer] xxxxxxx 2018- [phone] [place] [address] [address] [place] [address] Dominic Briscoe Self 1960 [facility] (Home) [place] [address] Advance Directives For more information, please contact: [address] [address] Date Inactivated Comments Code Status Date Activated 04/11/2018 3:39 PM Full Code 04/09/2018 3:33 PM
--- OUTSIDE RECORDS SUMMARY | 2019-01-08 15:40 | XMS REPORT | Clinical Summary ---
Author Author [facility] Organization [facility] Address Unknown Phone Unavailable Care Team Providers Care Car Painter Name Role Phone Guido Garnettlaurie Vazquez BUILDING MAINTENANCE SUPERINTENDENT PCP Allergies Comments Active Allergy Reactions Severity [...] Medication Sig Dispensed Refills Start Date Active topiramate (TOPAMAX) 25 Take 1 84 [...] 50mg by mouth twice a day. Active cyclobenzaprine Take 1 tablet 30 tablet 0 (FLEXERIL) 10 mg by mouth 9 tabletIndications: Rib nightly at pain on left side bedtime as needed for Muscle Spasms. Active gabapentin (NEURONTIN) Take 1 tablet 60 tablet 0 600 mg tabletIndications: by mouth 2 9 Neuropathic pain of left times daily. lower extremity Active metoprolol tartrate Take 1 tablet 60 tablet 0 (LOPRESSOR) 50 mg by mouth 2 9 tabletIndications: times daily. Hypertension, well controlled Active QUEtiapine (SEROQUEL) 200 Take 1 tablet 7 tablet 0 07/04/201 mg tabletIndications: by mouth at 9 Mood disorder bedtime nightly. Active DULoxetine (CYMBALTA) 30 Take 1 7 capsule 0 mg delayed release capsule by 9 capsuleIndications: Mood mouth daily. disorder Active hydrOXYzine (ATARAX) 25 Take 2 28 tablet 0 mg tabletIndications: tablets by 9 Mood disorder mouth 2 times daily as needed for Anxiety or Insomnia. 04/11/2018 Discontinued SUMAtriptan (IMITREX) 100 Take 1 tablet 9 tablet 0 mg tabletIndications: by mouth at 6 Headache disorder onset of headache. Repeat after 2 hours if needed. Maximum 200mg/24 hours.. 04/11/2018 Discontinued [id number] Take by mouth 30 capsule 0 50-325-40 [...] 0 201 mg delayed release capsule by 8 capsuleIndications: [...] (TOPAMAX) 25 Take 1 84 capsule 0 201 mg sprinkle capsule by 8 capsuleIndications: mouth [...] (ATARAX) 25 Take 2 120 tablet 0 mg tabletIndications: tablets by 9 Mood disorder [...] tabletIndications: times daily. Hypertension, well controlled Active Problems Problem Noted Date Chest pain [...] daily Dehydration COHEN (dyspnea on exertion) Tachycardia Encounters Care Team Description Date Type Specialty Kaci Cruz MD Mood disorder 07/04/2018 Orders Only Psychiatry Mia Garnett NP Encounter to discuss test results (Primary Dx); Neck pain; Medication refill 05/30/2018 Office Visit Family Practice 05/30/2018 Travel Mia Garnett NP Neuropathic pain of left lower extremity; Hypertension, well controlled 05/27/2018 Orders Only [facility] Rolf Moctezuma, NATHAN 05/24/2018 Nurse Triage Rebeka Angel LVN Neuropathic pain of left lower extremity; Hypertension, well controlled 05/24/2018 Refill Family Practice 05/24/2018 Travel Elizabeth Boggs RN 05/24/2018 Nurse [...] Refill Request 04/25/2018 Telephone Psychiatry Sushil Daniels PA Tachycardia (Primary Dx); COHEN (dyspnea on [...] disorder 03/22/2018 Orders Only Family Practice after 07/03/2017 Immunizations Name Dates Previously Given Next Due Influenza, 03/22/2018 Vaccine<FLUCELVAX>(Multi- Dose) Family History Medical History Relation Name Comments Unknown Fam Hx Brother Cancer Father Diabetes Mother Heart Mother Other Mother Psychiatry Mother Arthritis Sister Relation Name Status Comments Brother Alive Father Mother Alive Sister Alive Social History Date Tobacco Use Types Packs/Day Years Used Never Smoker Smokeless Tobacco: Never Used Alcohol Use Drinks/Week oz/Week Comments Yes 2-3 [...] Vital Signs Time Taken Vital Sign Reading 05/30/2018 7:48 AM [employer] SUPPORT EMPLOYEE Blood Pressure 126/84 05/30/2018 7:48 AM [employer]AL [employer]PPORT EMPLOYEE Pulse 61 05/30/2018 7:48 AM [employer]AL [employer]PPORT EMPLOYEE Temperature 37 C (98.6 F) 05/30/2018 7:48 AM [employer]AL SUPPORT EMPLOYEE Respiratory Rate 18 04/18/2018 11:21 PM [employer]AL SUPPORT EMPLOYEE Oxygen Saturation 99% - Inhaled Oxygen - Concentration 05/30/2018 7:48 AM [employer]AL SUPPORT EMPLOYEE Weight 88 kg (194 lb) 05/30/2018 7:48 AM [employer]AL SUPPORT EMPLOYEE Height 170.2 cm (5' 7") 05/30/2018 7:48 AM [employer]AL SUPPORT EMPLOYEE Body Mass Index 30.38 Plan of Treatment Health Maintenance Due Date Last Done Comments Cervical Cancer Scrn (3 1981 Yrs) Colorectal Cancer Scrn 2010 Annual (FIT/FOBT) Age 50 to 75 Breast Cancer Scrn 04/29/2019 04/29/2018 (Yearly) IMM Influenza Seasonal Completed 03/22/2018 Oct to June (>/=19 yrs) Procedures Comments Procedure Name Priority Date/Time Associated Diagnosis URINE DRUG SCREEN Routine 05/21/2018 Mood disorder 9:31 AM [employer] EMPLOYEE FSH/LH Routine 04/29/2018 Night sweats 3:31 PM [employer]AL [employer] EMPLOYEE FREE T4 Routine 04/29/2018 Night sweats 3:31 PM [employer] EMPLOYEE TSH Routine 04/29/2018 Encounter to establish 3:31 PM [employer] EMPLOYEE care Night sweats LIVER PROFILE Routine 04/29/2018 Encounter to establish 3:31 PM [employer] EMPLOYEE care LIPID PROFILE Routine 04/29/2018 Encounter to establish 3:31 PM [employer] EM[employer]OYEE care HIV-1/HIV-2 ROUTINE Routine 04/29/2018 Encounter to establish SCREENING 3:31 PM [employer] EM[employer]OYEE care HEPATITIS PANEL Routine 04/29/2018 Encounter to establish 3:31 PM [employer] EMPLOYEE care HEMOGLOBIN A1C Routine 04/29/2018 Encounter to establish 3:31 PM [employer] EMPLOYEE care BASIC METABOLIC PANEL Routine 04/29/2018 Encounter to establish 3:31 PM [employer] EMPLOYEE care URINE DRUG SCREEN Routine 04/29/2018 Encounter to establish 3:23 PM [employer] EMPLOYEE care UA CHEMISTRIES Routine 04/29/2018 Encounter to establish 3:23 PM [employer] EM[employer]OYEE care MAMMOGRAM BILAT SCREEN Routine 04/29/2018 Screen for colon cancer DIGITAL 1:50 PM [employer] EMPLOYEE BMP POC Routine 04/18/2018 2:49 PM [employer] EMPLOYEE TROPONIN I POC Routine 04/18/2018 2:31 PM [employer] EMPLOYEE HIV-1/HIV-2 ROUTINE STAT 04/18/2018 SCREENING 2:27 PM [employer]AL [employer] EMPLOYEE CBC/DIFF STAT 04/18/2018 2:27 PM [employer]AL [employer] EMPLOYEE 12 LEAD EKG Routine 04/18/2018 2:11 PM [employer]AL SUPPORT EMPLOYEE TROPONIN I POC Routine 04/18/2018 3:56 AM [employer]AL SUPPORT EMPLOYEE TROPONIN I POC Routine 04/18/2018 12:55 AM [employer]AL SUPPORT EMPLOYEE BMP POC Routine 04/18/2018 12:30 AM POSTAL SUPPORT EMPLOYEE D-DIMER STAT 04/18/2018 12:10 AM [employer]AL SUPPORT EMPLOYEE CBC/DIFF STAT 04/18/2018 12:10 AM [employer]AL SUPPORT EMPLOYEE HIV-1/HIV-2 STAT 04/18/2018 DIAGNOSTIC/SYMPTOMATIC 12:10 AM [employer]AL [employer] EMPLOYEE XRAY CHEST 2 VIEWS STAT 04/17/2018 Chronic chest pain 9:53 PM [employer] EMPLOYEE 12 LEAD EKG Routine 04/17/2018 3:02 PM [employer]AL [employer] EMPLOYEE CTA CHEST AORTA STAT 04/10/2018 Chest pain, unspecified 6:40 PM [employer]AL [employer] EMPLOYEE type BASIC METABOLIC PANEL STAT 04/10/2018 2:30 PM [employer]AL [employer]PPORT EMPLOYEE MYOCARDIAL PERFUSION Routine 04/10/2018 SPECT REST/STRES SINGLE 1:52 PM POSTAL [employer]PPORT EMPLOYEE TREADMILL STRESS-TRACING 04/10/2018 ONLY 11:23 AM POSTAL SUPPORT EMPLOYEE TRANSTHORACIC ECHO (TTE) STAT 04/10/2018 9:20 AM [employer]AL [employer] EMPLOYEE CONSULT CLINICAL CASE Discharge 04/10/2018 MANAGEMENT (RN/SW) Today 8:49 AM [employer]AL [employer]PPORT EMPLOYEE TROPONIN I POC Routine 04/09/2018 10:26 AM [employer]AL SUPPORT EMPLOYEE TROPONIN I STAT 04/09/2018 10:15 AM [employer]AL [employer]PPORT EMPLOYEE 12 LEAD EKG STAT 04/09/2018 9:56 AM [employer]AL SUPPORT EMPLOYEE TROPONIN I POC Routine 04/09/2018 7:31 AM POSTAL SUPPORT EMPLOYEE TROPONIN I STAT 04/09/2018 7:22 AM POSTAL SUPPORT EMPLOYEE 12 LEAD EKG STAT 04/09/2018 6:41 AM [employer]AL SUPPORT EMPLOYEE TROPONIN I POC Routine 04/09/2018 6:40 AM [employer]AL SUPPORT EMPLOYEE XRAY CHEST 2 VIEWS STAT 04/09/2018 Migraine without aura and 4:38 AM [employer] EMPLOYEE with status migrainosus, not intractable 12 LEAD EKG STAT 04/09/2018 4:08 AM [employer]AL SUPPORT EMPLOYEE BMP POC Routine 04/09/2018 3:13 AM POSTAL SUPPORT EMPLOYEE TROPONIN I POC Routine 04/09/2018 3:12 AM [employer]AL SUPPORT EMPLOYEE CBC/DIFF STAT 04/09/2018 3:07 AM [employer]AL [employer]PPORT EMPLOYEE POC RAPID HIV Routine 03/22/2018 Encounter for screening 10:10 AM [employer]AL [employer]PPORT EMPLOYEE for HIV GLUCOSE POC Routine 03/22/2018 10:09 AM POSTAL SUPPORT EMPLOYEE after 07/03/2017 Results * URINE DRUG SCREEN (05/21/2018 9:31 AM POSTAL SUPPORT EMPLOYEE) Only the most recent of 2 results within the time period is included. Amphetamine Negative NEG BT MAIN-STATION Comment: 1 Calibrated Standard: D-Methamphetamine Positive if urine level >nk=8382 ng/mL Test performed on [id number] using EMIT Immunoassay Barbiturate Positive (A) NEG BT MAIN-STATION Comment: 1 Calibrated Standard: Secobarbital Positive if urine level is >vo=099 ng/mL Test performed on [id number] using EMIT Immunoassay Benzodiazepine Positive (A) NEG BT MAIN-STATION Comment: 1 Calibrated Standard: Lormethazepam Positive if urine level is >lj=477 ng/mL Test performed on [id number] using EMIT Immunoassay Cannabinoid Negative NEG BT MAIN-STATION Comment: 1 Calibrated Standard: 11 nor-delta(9)-THC carboxylic a Positive if urine level >or=50 Test performed on [id number] using EMIT Immunoassay Cocaine Negative NEG BT MAIN-STATION Comment: 1 Calibrated Standard: Benzoylecgonine Positive if urine level >qv=575 Test performed on [id number] using EMIT Immunoassay Opiate, Ur Negative NEG BT MAIN-STATION Comment: 1 Calibrated Standard: Morphine Positive if urine level >hv=461 Test performed on [id number] using EMIT Immunoassay PCP Negative NEG BT MAIN-STATION Comment: 1 Calibrated Standard: Phencyclidine Positive if urine level >or=25 Test performed on [id number] using EMIT Immunoassay Urine Toxicology Screen results are to be used only for Medical purposes. Specimen Urine Performing Organization Address City/State/Zipcode Phone Number MISYS BT MAIN-STATION 1 * HIV-1/HIV-2 ROUTINE SCREENING (04/29/2018 3:31 PM POSTAL SUPPORT EMPLOYEE) Only the most recent of 2 results within the time period is included. HIV-1/HIV-2 Negative NEG BT MAIN-STATION 3 Performing Organization Address City/[facility] Phone Number MISYS BT MAIN-STATION 3 * HEMOGLOBIN A1C (04/29/2018 3:31 PM POSTAL SUPPORT EMPLOYEE) Hemoglobin A1c 5.6 4.3 - 6.1 % BT DIAGNOSTIC IMMUNOLOGY Est Average 114.0 mg/dL BT DIAGNOSTIC Gluc IMMUNOLOGY Specimen Blood Performing Organization Address [facility] Phone Number MISYS DIAGNOSTIC IMMUNOLOGY * TSH (04/29/2018 3:31 PM POSTAL SUPPORT EMPLOYEE) TSH 0.70 0.57 - 3.74 uIU/mL BT MAIN-STATION 1 Specimen Blood Performing Organization Address [facility] Phone Number [facility] * FREE T4 (04/29/2018 3:31 PM [employer]AL [employer]PPORT EMPLOYEE) Free T4 0.81 0.61 - 1.18 ng/dl BT MAIN-STATION Comment: 1 females: 1st Trimester-0.52-1.10 ng/dL 2nd Trimester=0.45-0.99 ng/dL 3rd Trimester=0.48-0.95 ng/dL Specimen Blood Performing Organization Address [facility] Phone Number [facility] 1 * LIVER PROFILE (04/29/2018 3:31 PM POSTAL SUPPORT EMPLOYEE) T Protein 8.0 6.0 - 8.3 g/dL [...] MAIN-STATION 1 Specimen Blood Performing Organization Address [facility] [place] Phone Number [facility] 1 * LIPID PROFILE (04/29/2018 3:31 PM [employer]PPORT EMPLOYEE) Cholesterol 235 mg/dL BT MAIN-STATION Comment: 1 REFERENCE RANGE: Desirable: <200 mg/dL Borderline: 200-240 mg/dL High Risk: >240 mg/dL Triglyceride 156 (H) <150 mg/dL BT MAIN-STATION Comment: 1 REFERENCE RANGE: Normal: <150 mg/dL Borderline High: 150-199 mg/dL High: 200-499 mg/dL Very High: >ks=590 mg/dL HDL 61 mg/dL BT MAIN-STATION Comment: 1 Increased CHD risk: <40 mg/dL Decreased CHD risk: >60 mg/dL LDL 143 mg/dL BT MAIN-STATION Comment: 1 REFERENCE RANGE: Optimal: <100 mg/dL Near Optimal: 100-129 mg/dL Borderline High: 130-159 mg/dL High: 160-189 mg/dL Very High: >yw=178 mg/dL Specimen Blood Performing Organization Address [facility] Phone Number MISYS BT MAIN-STATION 1 * HEPATITIS PANEL (04/29/2018 3:31 PM [employer]AL [employer] EMPLOYEE) HCV IgG Negative NEG BT MAIN-STATION 3 HBsAg Negative NEG BT MAIN-STATION 3 HAV, IgM Negative NEG BT MAIN-STATION 3 HBcAb, IgM Negative NEG BT MAIN-STATION 3 Specimen Blood Performing Organization Address [facility] Phone Number [facility] 3 * FSH/LH (04/29/2018 3:31 PM [employer]PPORT EMPLOYEE) FSH 78.66 mIU/mL BT MAIN-STATION Comment: 1 REFERENCE RANGE FEMALE: POST MENOPAUSAL:16.74-113.59 Mid-follicular:3.85-8.78 Female Mid-cycle:4.54-22.51 Mid-luteal:1.79-5.12 LH 24.93 mIU/mL BT MAIN-STATION Comment: 1 REFERENCE RANGE FEMALE: POST MENOPAUSAL 10.87-58.64 Mid-follicular2.12-10.89 Mid-cycle 4.54-22.51 Mid-luteal1.79-5.1 2 Specimen Blood Performing Organization Address [facility] Phone Number MISYS BT MAIN-STATION 1 * BASIC METABOLIC PANEL (04/29/2018 3:31 PM [employer]PPORT EMPLOYEE) Only the most recent of 2 results [...] Afr-Am 1 Specimen Blood Performing Organization Address City/[facility] Phone Number MISYS BT MAIN-STATION 1 * UA CHEMISTRIES (04/29/2018 3:23 PM [employer]AL [employer] EMPLOYEE) Color Yellow BT MAIN-STATION 4 Clarity Clear BT MAIN-STATION 4 Spec [place] 1.015 1.001 - 1.035 BT MAIN-STATION 4 pH 6.0 5 - 8 BT MAIN-STATION 4 Protein Negative NEG BT MAIN-STATION 4 Glucose Negative NEG BT MAIN-STATION 4 Ketone Negative NEG BT MAIN-STATION 4 Bilirubin Negative NEG BT MAIN-STATION 4 Nitrate Negative NEG BT MAIN-STATION 4 Urobilinogen <1.0 0.2 - 1.0 EU/dL BT MAIN-STATION 4 Leukocyte Trace (A) NEG BT MAIN-STATION 4 Blood 1+ (A) NEG BT MAIN-STATION 4 RBC <1 0 - 4 /HPF BT MAIN-STATION 4 WBC <1 0 - 5 /HPF BT MAIN-STATION 4 Epithelial Cell 1 /HPF BT MAIN-STATION 4 Specimen Urine Performing Organization Address City/[facility] Phone Number MISYS BT MAIN-STATION 4 * MAMMOGRAM BILAT SCREEN DIGITAL (04/29/2018 1:50 PM POSTAL SUPPORT EMPLOYEE) Impressions Performed At IMPRESSION: NEGATIVE SMS There is no mammographic evidence of malignancy. A 1 year screening mammogram is recommended. I have reviewed the study and agree with the findings in the report. This document has been electronically signed. Sherrie gross dd/marian:04/29/2018 14:38:02 Nurseryman Assistant: Lilliana Ley [facility] letter sent: Mammography Normal Mammogram BI-RADS: 1 Negative G0202 z12.31 Narrative Performed At #[id number] - MAMMOGRAM BILAT SCREEN DIGITAL SMS BILATERAL [...] Interface, Rad/Mammog In - 04/30/2018 7:51 AM POSTAL SUPPORT EMPLOYEE #[id number] - MAMMOGRAM BILAT SCREEN DIGITAL BILATERAL FIRST [...] been electronically signed. Sherrie gross dd/marian:04/29/2018 14:38:02 Nurseryman Assistant: Lilliana Ley [facility] letter sent: Mammography Normal Mammogram BI-RADS: 1 Negative G0202 z12.31 Performing Organization Address City/State/Zipcode Phone Number SMS * BMP POC (04/18/2018 2:49 PM [employer]PPORT EMPLOYEE) Only the most recent of 3 results within the time period is included. CO2 POC 16 (L)Comment: Physician 21 - 32 mmol/L BT MAIN-STATION Notified 1 Chloride POC 105 98 - 107 mmol/L BT MAIN-STATION 1 Potassium POC 4.0 3.50 - 5.10 mmol/L BT MAIN-STATION 1 Sodium POC 139 136 - 145 mmol/L BT MAIN-STATION 1 Glucose POC 256 (H) 74 - 106 mg/dL BT MAIN-STATION 1 Urea Nitrogen 9 7 - 18 mg/dL BT MAIN-STATION POC 1 Creatinine POC 0.9 0.6 - 1.3 mg/dL BT MAIN-STATION 1 Calcium Ionized 1.07 (L) 1.15 - 1.29 mmol/L BT MAIN-STATION POC 1 Hemoglobin POC 15.0 12.0 - 16.0 g/dL BT MAIN-STATION 1 Hematocrit POC 44.0 37.0 - 47.0 % BT MAIN-STATION 1 GFR, Estimated >60 mL/min/1.73 m2 BT MAIN-STATION 1 GFR, Estim, >60 mL/min/1.73 m2 BT MAIN-STATION Afr-Am 1 Performing Organization Address City/State/Zipcode Phone Number MISYS BT MAIN-STATION 1 * TROPONIN I POC (04/18/2018 2:31 PM [employer]PPORT EMPLOYEE) Only the most recent of 7 results within the time period is included. Troponin POC 0.00 0.00 - 0.08 ng/mL BT MAIN-STATION 1 Performing Organization Address City/State/Zipcode Phone Number MISYS BT MAIN-STATION 1 * CBC/DIFF (04/18/2018 2:27 PM [employer] EMPLOYEE) Only the most recent of 3 results within the time period is included. WBC 5.3 4.5 - 11.0 K/uL BT MAIN-STATION 2 RBC 4.04 (L) 4.20 - 5.40 M/uL BT MAIN-STATION 2 Hemoglobin 12.5 12.0 - 16.0 g/dL BT MAIN-STATION 2 Hematocrit 38.8 37.0 - 47.0 % BT MAIN-STATION 2 MCV 96 (H) 82 - 92 fL BT MAIN-STATION 2 MCH 30.9 27.0 - 32.0 pg BT MAIN-STATION 2 MCHC 32.2 32.0 - 36.0 g/dL BT MAIN-STATION 2 RDW 58.3 (H) 36.4 - 46.3 fL BT MAIN-STATION 2 Platelet 229 150 - 400 K/uL BT MAIN-STATION 2 Mean Platelet 10.1 9.4 - 12.4 fL BT MAIN-STATION Volume 2 Percent NRBC 0.0 BT MAIN-STATION 2 Absolute NRBC 0.00 BT MAIN-STATION 2 Neutrophil 84.2 (H) 34.0 - 70.0 % BT MAIN-STATION 2 Lymphocyte 14.6 (L) 20.0 - 50.0 % BT MAIN-STATION 2 Monocyte 0.6 (L) 5.0 - 12.0 % BT MAIN-STATION 2 Eosinophil 0.0 (L) 0.7 - 5.0 % BT MAIN-STATION 2 Basophil 0.0 (L) 0.1 - 1.2 % BT MAIN-STATION 2 Pct Immat Gran 0.6 (H) 0.0 - 0.5 BT MAIN-STATION 2 Neutrophil, Abs 4.50 1.56 - 6.13 K/uL BT MAIN-STATION 2 Lymphocyte, Abs 0.78 (L) 1.18 - 3.74 K/uL BT MAIN-STATION 2 Monocyte, Abs 0.03 (L) 0.24 - 0.36 K/uL BT MAIN-STATION 2 Eosinophil, Abs 0.00 (L) 0.04 - 0.36 K/uL BT MAIN-STATION 2 Basophil, Abs 0.00 (L) 0.01 - 0.08 K/uL BT MAIN-STATION 2 Absol Immat 0.03 0.00 - 0.03 K/uL BT MAIN-STATION Gran 2 Specimen Blood Performing Organization Address [facility] Phone Number MISYS BT MAIN-STATION 2 * 12 LEAD EKG (04/18/2018 2:11 PM POSTAL SUPPORT EMPLOYEE) 12 LEAD EKG FOR [facility] Test Date:2018-04-18 Pat Name: DOMINIC OTTO Department: 5520 Room: Gender: Airline Station Agent: [id number] :1961-0 08-08 Requested By: ROSARIO RENEE Order Number: [id number] Reading MD: Edy Manley M.D. Measurements Intervals [place] Rate: 104 P: 42 MT: 201 QRS: -30 QRSD: 77 T:16 QT: 363 QTc:479 Interpretive Statements SINUS TACHYCARDIA POSSIBLE ANTERIOR MYOCARDIAL INFARCTION, PROBABLY OLD ABNORMAL RHYTHM ECG Electronically Signed On 04-18-2018 14:13:28 POSTAL SUPPORT EMPLOYEE by Edy Manley M.D. Performing Organization Address [facility] Phone Number SMS * HIV-1/HIV-2 DIAGNOSTIC/SYMPTOMATIC (04/18/2018 12:10 AM [employer]AL SUPPORT EMPLOYEE) HIV-1/HIV-2 Negative NEG BT MAIN-STATION 4 Specimen Blood Performing Organization Address [facility] Phone Number [facility] BT [facility]IN-STATION 4 * D-DIMER (04/18/2018 12:10 AM POSTAL SUPPORT EMPLOYEE) D-Dimer 0.72 ug/mL,FEU BT MAIN-STATION Comment: 2 Values of quantitative d-Dimer less than 0.40 ug/mL FEU have been reported to be associated with a low probability of deep vein thrombosis/pulmonary embolism. This test alone should not be used to rule out DVT/PE. Specimen Blood Performing Organization Address City/[facility] Phone Number [facility] BT [facility]IN-STATION 2 * XRAY CHEST 2 VIEWS (04/17/2018 9:53 PM POSTAL SUPPORT EMPLOYEE) Only the most recent of 2 results within the time period is included. Impressions Performed At IMPRESSION: [facility] No acute thoracic abnormality. If the report [...] Interface, Rad/Mammog In - 04/17/2018 10:25 PM POSTAL SUPPORT EMPLOYEE EXAMINATION: XRAY CHEST 2 VIEWS, Frontal and [...] MD, 04/17/2018 10:20 PM Performing Organization Address City/State/Zipcode Phone Number SMS * 12 LEAD EKG (04/17/2018 3:02 PM POSTAL SUPPORT EMPLOYEE) 12 LEAD EKG FOR [facility] Test Date:2018-04-17 Pat Name: DOMINIC OTTO Department: 5520 Room: Gender: F Airline Station Agent: [id number] :1961-0 08-08 Requested By: ASHUTOSH Muse Order Number: [id number] Lela MD: Edy Manley M.D. Measurements Intervals [place] Rate: 72 P:31 MT: 196 QRS: -5 QRSD: 90 T:49 QT: 416 QTc:456 Interpretive Statements SINUS RHYTHM LOW QRS VOLTAGE IN PRECORDIAL LEADS POSSIBLE ANTERIOR MYOCARDIAL INFARCTION, PROBABLY OLD Electronically Signed On 04-17-2018 15:32:59 POSTAL SUPPORT EMPLOYEE by Edy Manley M.D. Performing Organization Address City/State/Zipcode Phone Number SMS * CTA CHEST AORTA (04/10/2018 6:40 PM POSTAL SUPPORT EMPLOYEE) Impressions Performed At IMPRESSION: SMS 1.Tortuous thoracic aorta accounting for abnormality on [...] CTA of the Thoracic Aorta WITH Contrast [facility] INDICATION: chest pain, aortic tortuosity on CXR [...] appear widely patent in their proximal portions. Patient Account Analyst dimensions of the thoracic aorta are as [...] Interface, Rad/Mammog In - 04/10/2018 10:14 PM POSTAL SUPPORT EMPLOYEE EXAM: CTA of the Thoracic Aorta WITH [...] appear widely patent in their proximal portions. Patient Account Analyst dimensions of the thoracic aorta are as [...] PERFUSION SPECT REST/STRES SINGLE (04/10/2018 1:52 PM POSTAL SUPPORT EMPLOYEE) MYOCARDIAL Myocardial Perfusion SMS PERFUSION SPECT Report REST/STRES DOMINIC BRISCOE Age:57Gender: F :1960 Exam Date: 04/10/2018 14:00 Exam Location:[facility] Ordering Phys: SHILPI UNGER Referring Phys: Reading Phys:Kaci Gavin MD Fellow Phys: Tim Tavarez M.D. Fellow Phys: Resident: Technologist: Darya Groves Reason For Exam: Indications: Chest pain, unspecified ICD-9 Codes:R07.9 Exam Type: Myocardial Perfusion Report Procedure CPT: 56807 Additional CPT: BP:/ HR: Risk Factors: Previous Cardiac Procedures: Cardiac History: No cardiac risk factors Pertinent Meds: Meds past 24 hrs: Pretest Chest Pain: Atypical angina CARDIOLOGY STRESS TEST Pharmacologi Cardiology exercise stress test results pending under separate report. Please look in [facility] under the Procedures Tab in Chart Review. IMAGE PROTOCOLStress Only Radiopharmaceutical Dose (mCi)Duration (min)Img Date Img Time Rest: REST DATE Stress: Tc-99m 13.8 STRESS [id number] Tetrofosmin Administration Site:Right antecubital fossa SPECT RESULTS [...] comparison. 7. Please see ECG report in Epic for details of tracing interpretation. [place] Control: Do not remove! Kaci Gavin MD (Electronically Signed) Final Date:10 April 2018 14:38 Performing Organization Address [facility] Phone Number SMS * TREADMILL STRESS-TRACING ONLY (04/10/2018 11:23 AM POSTAL SUPPORT EMPLOYEE) Stress Test [facility] Test Date:2018-04-10 Pat Name: DOMINIC BRISCOE Department: [facility] Room: Gender: F Airline Station Agent: :1960-0 08-08 Requested By: RYAN GAVIN Order Number: [id number] Reading MD: Antoinette Weldon M.D. Interpretive Statements EKG [...] perfusion data. Electronically Signed On 04-18-2018 12:08:39 POSTAL SUPPORT EMPLOYEE by Antoinette Weldon M.D. Performing Organization Address [facility] Phone Number [facility] * TRANSTHORACIC ECHO (TTE) (04/10/2018 9:20 AM POSTAL SUPPORT EMPLOYEE) Pathologist [facility] TRANSTHORACIC Transthoracic [facility] ECHO (TTE) Echo Report DOMINIC BRISCOE Age:57 Gender: F :1960 Exam Date: 04/10/2018 09:20 Exam Location: [facility] Echo Ordering Phys: UTE SHILPI U Referring Phys:[id number] Reading Phys:Antoinette Weldon MD Fellow Phys: Saige Archer M.D. Fellow Phys: Tonsorial Artist: Marlon Claire Reason For Exam: Indications: Chest pain, unspecified ICD-9 Codes: R07.9 Exam Type: TRANSTHORACIC ECHO (TTE) Procedure CPT:42478 Addtional CPT: Ht (in): 66 BSA: 2.02HR: [...] BP 58 cm LV Cardiac Output MOD [id number] cm/min LV Cardiac Index MOD BP 1752 cm/minm LA Volume 58.6 cm LA Volume Index 29 cm/m 16 - 34 cm/m LV Mass by linear [id number] g LV Mass by linear method Index54.3 [...] BP 58 cm LV Cardiac Output MOD [id number] cm/min LV Cardiac Index MOD BP 1752 cm/minm LA Volume 58.6 cm LA Volume Index 29 cm/m 16 - 34 cm/m LV Mass by linear [id number] g LV Mass by linear method Index54.3 [...] LV E' Septal Ratio14.4 Performing Organization Address [facility] Phone Number [facility] * TROPONIN I (04/09/2018 10:15 AM [employer] EM[employer]OYEE) Only the most recent of 2 results within the time period is included. Troponin I <0.03 <0.04 ng/mL BT MAIN-STATION 1 Specimen Blood Performing Organization Address City/[facility] Phone Number MISYS BT MAIN-STATION 1 * 12 LEAD EKG (04/09/2018 9:56 AM [employer] EMPLOYEE) 12 LEAD EKG FOR [facility] Test Date:2018-04-09 Pat Name: DOMINIC OTTO Department: [id number] Room: [facility] Gender: F Airline Station Agent: [id number] :08-08 Requested By: BARRY GREGG Order Number: [id number] Reading MD: Edy Manley M.D. Measurements Intervals [place] Rate: 71 P:32 MT: 201 QRS: -18 QRSD: 89 T:50 QT: 431 QTc:471 Interpretive Statements SINUS RHYTHM Electronically Signed On 04-10-2018 5:26:54 [employer] by Edy Manley M.D. Performing Organization Address City/[facility] Phone Number SMS * 12 LEAD EKG (04/09/2018 6:41 AM [employer]AL [employer]PPORT EMPLOYEE) 12 LEAD EKG FOR [facility] Test Date:2018-04-09 Pat Name: [facility]: [facility] Room: Gender: Airline Station Agent: :08-08 Requested By: BARRY GREGG Order Number: [id number] Reading MD: Antoinette Weldon M.D. Measurements Intervals [place] Rate: 60 P:27 MT: 189 QRS: -13 QRSD: 93 T:52 QT: 449 QTc:452 Interpretive Statements SINUS RHYTHM Electronically Signed On 04-09-2018 8:51:06 [employer] EM[employer]EE by Antoinette Weldon M.D. 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 Measurements Intervals [place] Rate: 67 P:15 MT: 183 QRS: -20 QRSD: 85 T:63 QT: 426 QTc:451 Interpretive Statements SINUS RHYTHM Reviewed by Electronically Signed On 04-09-2018 4:58:44 [employer]EE by Edy Manley M.D. Performing Organization Address City/[facility]/Zipcode Phone Number SMS * POC RAPID HIV (03/22/2018 10:10 AM [employer] EMPLOYEE) Rapid HIV negativeComment: fingerstick Result specimen Rapid HIV pass Control Specimen Blood * GLUCOSE POC (03/22/2018 10:09 AM [employer] EMPLOYEE) Glucose POC 101 74 - 106 mg/dL [facility] Performing Organization Address City/State/Zipcode Phone Number [facility] [address] [facility] [address] after 07/03/2017 Insurance Type Payer Benefit Subscriber ID Effective Phone Address Plan / Dates Group [employer] HOM[employer]ESS xxxxxxx 2018- [phone] [place] [address] [address] [place] [address] [employer] Guilherme Self 1960 [facility] [facility] (Home[facility] [place] [address] Advance Directives For more information, please contact: [address] [address] Date Inactivated Comments Code Status Date Activated 04/11/2018 3:39 PM Full Code 04/09/2018 3:33 PM
--- OUTSIDE RECORDS SUMMARY | 2019-01-08 15:41 | XMS REPORT ---
[facility] Address Unknown Phone Unavailable Care Team Providers Care Slate Worker Name Role Phone Unavailable Unavailable Payers Payer Name Policy Type Policy Number Effective Date Expiration Date Problems This patient has no known problems. Allergies, Adverse Reactions, Alerts Allergy Name Allergy Type Status Severity Reaction(s) Onset Date Inactive Date Treating Clinician Comments No Known Allergies DA Active U 2018-10-16 00:00:00 Penicillins DA Active U 2018-10-16 00:00:00 prochlorperazine DA Active U 2018-10-16 00:00:00 metoclopramide DA Active U 2018-10-16 00:00:00 ketorolac DA Active U 2018-10-16 00:00:00 Penicillins DA Active KS 2017-07-06 00:00:00 prochlorperazine DA Active SV 2017-07-06 00:00:00 metoclopramide DA Active SV 2017-07-06 00:00:00 ketorolac DA Active U 2017-07-06 00:00:00 Medications This patient has no known medications. Encounters Start Date/Time End Date/Time Encounter Type Admission Type Attending Clinicians Care Facility Care Department Encounter ID 2019-01-14 00:00:00 2019-01-14 00:00:00 Outpatient [facility] [id number] 2019-01-14 00:00:00 2019-01-14 00:00:00 Outpatient [facility] [id number] 2018-12-31 10:28:38 2018-12-31 10:28:38 Outpatient [facility] [id number] 2018-12-31 00:00:00 2018-12-31 00:00:00 Outpatient [facility] [id number] 2018-12-17 09:12:59 2018-12-17 09:12:59 Outpatient [facility] [id number] 2018-12-17 08:59:43 2018-12-17 08:59:43 Outpatient [facility] [id number] 2018-12-17 00:00:00 2018-12-17 00:00:00 Outpatient [facility] [id number] 2018-12-10 09:33:21 2018-12-10 09:33:21 Outpatient [facility] [id number] 2018-12-10 09:16:12 2018-12-10 09:16:12 Outpatient [facility] [id number] 2018-12-10 00:00:00 2018-12-10 00:00:00 Outpatient [facility] [id number] 2018-12-03 09:55:22 2018-12-03 09:55:22 Outpatient [facility] [id number] 2018-12-03 09:26:59 2018-12-03 09:26:59 Outpatient [facility] [id number] 2018-12-03 09:03:56 2018-12-03 09:03:56 Outpatient [facility] [id number] 2018-11-26 09:43:52 2018-11-26 09:43:52 Outpatient [facility] [id number] 2018-11-26 09:20:56 2018-11-26 09:20:56 Outpatient [facility] [id number] 2018-11-26 00:00:00 2018-11-26 00:00:00 Outpatient [facility] [id number] 2018-11-19 10:43:55 2018-11-19 10:43:55 Outpatient [facility] [id number] 2018-11-19 10:29:57 2018-11-19 10:29:57 Outpatient [facility] [id number] 2018-11-12 12:50:01 2018-11-12 12:50:01 Outpatient [facility] [id number] 2018-11-12 12:14:12 2018-11-12 12:14:12 Outpatient [facility] [id number] 2018-11-05 10:03:24 2018-11-05 10:03:24 Outpatient [facility] [id number] 2018-11-05 09:41:23 2018-11-05 09:41:23 Outpatient [facility] [id number] 2018-10-29 10:59:51 2018-10-29 10:59:51 Outpatient [facility] [id number] 2018-10-29 10:22:06 2018-10-29 10:22:06 Outpatient [facility] [id number] 2018-10-22 09:43:11 2018-10-22 09:43:11 Outpatient [facility] [id number] 2018-10-22 08:45:10 2018-10-22 08:45:10 Outpatient [facility] [id number] 2018-10-22 00:00:00 2018-10-22 00:00:00 Outpatient [facility] [id number] 2018-10-15 09:49:21 2018-10-15 09:49:21 Outpatient [facility] [id number] 2018-10-15 09:20:29 2018-10-15 09:20:29 Outpatient [facility] [id number] 2018-10-15 00:00:00 2018-10-15 00:00:00 Outpatient [facility] [id number] 2018-10-08 09:08:20 2018-10-08 09:08:20 Outpatient [facility] [id number] 2018-10-08 08:27:04 2018-10-08 08:27:04 Outpatient [facility] [id number] 2018-09-30 08:26:20 2018-09-30 08:26:20 Outpatient [facility] [id number] 2018-09-30 08:07:29 2018-09-30 08:07:29 Outpatient [facility] [id number] 2018-09-30 00:00:00 2018-09-30 00:00:00 Outpatient [facility] [id number] 2018-09-30 00:00:00 2018-09-30 00:00:00 Outpatient [facility] [id number] 2018-09-25 09:20:43 2018-09-25 09:20:43 Outpatient [facility] [id number] 2018-09-25 00:00:00 2018-09-25 00:00:00 Outpatient [facility] [id number] 2018-09-20 00:00:00 2018-09-20 00:00:00 Outpatient [facility] [id number] 2018-08-26 16:38:00 2018-08-26 16:38:00 Emergency [facility] [id number] 2018-08-14 08:09:19 2018-08-14 08:09:19 Outpatient [facility] [id number] 2018-08-01 01:55:19 2018-08-01 01:55:19 Emergency [facility] [id number] 2018-06-20 00:00:00 2018-06-20 00:00:00 Outpatient [facility] [id number] 2018-06-18 00:00:00 2018-06-18 00:00:00 Outpatient [facility] [id number] 2018-06-06 00:00:00 2018-06-06 00:00:00 Outpatient [facility] [id number] 2018-05-30 07:48:15 2018-05-30 07:48:15 Outpatient [facility] [id number] 2018-05-22 00:00:00 2018-05-22 00:00:00 Outpatient [facility] [id number] 2018-05-21 08:40:39 2018-05-21 08:40:39 Outpatient [facility] [id number] 2018-05-16 00:00:00 2018-05-16 00:00:00 Outpatient [facility] [id number] 2018-05-06 00:00:00 2018-05-06 00:00:00 Outpatient [facility] [id number] 2018-05-02 00:00:00 2018-05-02 00:00:00 Outpatient [facility] [id number] 2018-04-30 12:58:43 2018-04-30 12:58:43 Outpatient [facility] [id number] 2018-04-29 15:33:08 2018-04-29 15:33:08 Outpatient [facility] [id number] 2018-04-29 13:56:43 2018-04-29 13:56:43 Outpatient [facility] [id number] 2018-04-29 12:59:09 2018-04-29 12:59:09 Outpatient [facility] [id number] 2018-04-25 00:00:00 2018-04-25 00:00:00 Outpatient [facility] [id number] 2018-04-18 15:09:18 2018-04-18 15:09:18 Emergency [facility] [id number] 2018-04-17 21:45:59 2018-04-17 21:45:59 Emergency [facility] [id number] 2018-04-17 19:51:56 2018-04-17 19:51:56 Emergency [facility] [id number] 2018-04-10 17:58:09 2018-04-10 17:58:09 Outpatient [facility] [id number] 2018-04-10 09:46:17 2018-04-10 09:46:17 Outpatient [facility] [id number] 2018-04-10 08:31:04 2018-04-10 08:31:04 Outpatient [facility] [id number] 2018-04-09 04:18:52 2018-04-09 04:18:52 Emergency [facility] [id number] 2018-04-09 03:05:31 2018-04-09 03:05:31 Emergency [facility] [id number] 2018-04-09 02:31:34 2018-04-09 02:31:34 Outpatient [facility] [id number] 2018-04-09 00:00:00 2018-04-09 00:00:00 Outpatient [facility] [id number] 2018-04-09 00:00:00 2018-04-09 00:00:00 Outpatient [facility] [id number] 2018-03-25 00:00:00 2018-03-25 00:00:00 Outpatient [facility] [id number] 2018-03-22 10:05:24 2018-03-22 10:05:24 Outpatient [facility] [id number] Results Test Description Test Time Test Comments Text Results Atomic Results Result Comments URINALYSIS COMPLETE 2018-10-16 17:56:00 UA COLOR (test code=COLU) Light-Yellow YELLOW UA APPEARANCE (test code=APPU) CLEAR CLEAR UA GLUCOSE DIPSTICK (test code=DGLUU) NEGATIVE mg/dL NEGATIVE UA BILIRUBIN DIPSTICK (test code=BILU) NEGATIVE mg/dL NEGATIVE UA KETONE DIPSTICK (test code=KETU) NEGATIVE mg/dL NEGATIVE UA SPECIFIC GRAVITY (test code=SGU) 1.009 1.001-1.035 UA BLOOD DIPSTICK (test code=HEATHER) Negative mg/dL NEGATIVE UA PH DIPSTICK (test code=BRANDON) 6.5 5.0-8.0 UA PROTEIN DIPSTICK (test code=PROU) NEGATIVE mg/dL NEGATIVE UA UROBILINIOGEN DIPSTICK (test code=URO) Normal mg/dL NEGATIVE UA NITRITE DIPSTICK (test code=CARRIE) NEGATIVE NEGATIVE UA LEUKOCYTE ESTERASE W REFLEX (test code=LEUUR) NEGATIVE Xenia/uL NEGATIVE UA WBC (test code=WBCU) 0-5 per HPF 0-5 UA RBC (test code=RBCU) 0-2 #/HPF 0-5 UA EPITHELIAL CELLS (test code=EPIU) FEW per HPF FEW UA BACTERIA (test code=BACU) NONE SEEN #/HPF NONE Urine Source? Clean CatchBASIC METABOLIC [id number] 15:51:00* Test Item Value Reference Range Comments SODIUM (test code=NA) 137 mmol/L 136-145 POTASSIUM (test code=K) 4.0 mmol/L 3.5-5.1 CHLORIDE (test code=CL) 100.0 mmol/L 98-107 CARBON DIOXIDE (test code=CO2) 28.0 mmol/L 21-32 ANION GAP (test code=GAP) 13.0 10-20 GLUCOSE (test code=GLU) 86 mg/dL 74-106 BLOOD UREA NITROGEN (test code=BUN) 15 mg/dL 7-18 GLOMERULAR FILTRATION RATE (test code=GFR) > 60 mL/min >=60 Estimated GFR by using Modified MDRD formula.Chronic kidney disease is defined as either kidney damageor GFR <60 mL/min/1.73 m2 for >3 months. CREATININE (test code=CREAT) 0.90 mg/dL 0.55-1.02 Note change in reference range due to change in reagent. BUN/CREATININE RATIO (test code=BUN/CREA) 16.7 10-20 CALCIUM (test code=CA) 8.9 mg/dL 8.5-10.1 HEPATIC FUNCTION [id number] 15:51:00* Test Item Value Reference Range Comments TOTAL PROTEIN (test code=PROT) 7.0 gram/dL 6.4-8.2 ALBUMIN (test code=ALB) 3.2 g/dL 3.4-5.0 GLOBULIN (test code=GLOB) 3.8 gram/dL 2.7-4.2 ALBUMIN/GLOBULIN RATIO (test code=A/G) 0.8 0.75-1.50 BILIRUBIN TOTAL (test code=BILT) 0.30 mg/dL 0.0-1.0 BILIRUBIN DIRECT (test code=BILD) 0.09 mg/dL 0.0-0.20 SGOT/AST (test code=AST) 62 IUnit/L 15-37 SGPT/ALT (test code=ALT) 32 IUnit/L 12-78 ALKALINE PHOSPHATASE TOTAL (test code=ALKP) 123 IUnit/L 45-117 Note change in reference range due to change in reagent. [id number] 15:51:00* Test Item Value Reference Range Comments LIPASE (test code=LIP) 77 U/L 73.0-393.0 HCG SERUM [id number] 15:51:00* Test Item Value Reference Range Comments HCG SERUM QUAL (test code=HCGQL) NEGATIVE NEGATIVE This HCGQL test is NOT applicable for MALE patients.Check with nurse about probable order error.If Tumor Marker Test needed, nurse should order test "HCGTU"(Test #550.01299) BASIC METABOLIC [id number] 15:46:00* Test Item Value Reference Range Comments SODIUM (test code=NA) 137 mmol/L 136-145 POTASSIUM (test code=K) 4.0 mmol/L 3.5-5.1 CHLORIDE (test code=CL) 100.0 mmol/L 98-107 CARBON DIOXIDE (test code=CO2) 28.0 mmol/L 21-32 ANION GAP (test code=GAP) 13.0 10-20 GLUCOSE (test code=GLU) 86 mg/dL 74-106 BLOOD UREA NITROGEN (test code=BUN) 15 mg/dL 7-18 GLOMERULAR FILTRATION RATE (test code=GFR) > 60 mL/min >=60 Estimated GFR by using Modified MDRD formula.Chronic kidney disease is defined as either kidney damageor GFR <60 mL/min/1.73 m2 for >3 months. CREATININE (test code=CREAT) 0.90 mg/dL 0.55-1.02 Note change in reference range due to change in reagent. BUN/CREATININE RATIO (test code=BUN/CREA) 16.7 10-20 CALCIUM (test code=CA) 8.9 mg/dL 8.5-10.1 HEPATIC FUNCTION [id number] 15:46:00* Test Item Value Reference Range Comments TOTAL PROTEIN (test code=PROT) 7.0 gram/dL 6.4-8.2 ALBUMIN (test code=ALB) 3.2 g/dL 3.4-5.0 GLOBULIN (test code=GLOB) 3.8 gram/dL 2.7-4.2 ALBUMIN/GLOBULIN RATIO (test code=A/G) 0.8 0.75-1.50 BILIRUBIN TOTAL (test code=BILT) 0.30 mg/dL 0.0-1.0 BILIRUBIN DIRECT (test code=BILD) 0.09 mg/dL 0.0-0.20 SGOT/AST (test code=AST) 62 IUnit/L 15-37 SGPT/ALT (test code=ALT) 32 IUnit/L 12-78 ALKALINE PHOSPHATASE TOTAL (test code=ALKP) 123 IUnit/L 45-117 Note change in reference range due to change in reagent. [id number] 15:46:00* Test Item Value Reference Range Comments LIPASE (test code=LIP) 77 U/L 73.0-393.0 HCG SERUM [id number] 15:46:00* Test Item Value Reference Range Comments HCG SERUM QUAL (test code=HCGQL) NEGATIVE BASIC METABOLIC [id number] 15:40:00* Test Item Value Reference Range Comments SODIUM (test code=NA) 137 mmol/L 136-145 POTASSIUM (test code=K) 4.0 mmol/L 3.5-5.1 CHLORIDE (test code=CL) 100.0 mmol/L 98-107 CARBON DIOXIDE (test code=CO2) mmol/L 21-32 ANION GAP (test code=GAP) 10-20 GLUCOSE (test code=GLU) mg/dL 74-106 BLOOD UREA NITROGEN (test code=BUN) mg/dL 7-18 GLOMERULAR FILTRATION RATE (test code=GFR) mL/min >=60 CREATININE (test code=CREAT) mg/dL 0.55-1.02 BUN/CREATININE RATIO (test code=BUN/CREA) 10-20 CALCIUM (test code=CA) mg/dL 8.5-10.1 HEPATIC FUNCTION [id number] 15:40:00* Test Item Value Reference Range Comments TOTAL PROTEIN (test code=PROT) gram/dL 6.4-8.2 ALBUMIN (test code=ALB) g/dL 3.4-5.0 GLOBULIN (test code=GLOB) gram/dL 2.7-4.2 ALBUMIN/GLOBULIN RATIO (test code=A/G) 0.75-1.50 BILIRUBIN TOTAL (test code=BILT) mg/dL 0.0-1.0 BILIRUBIN DIRECT (test code=BILD) mg/dL 0.0-0.20 SGOT/AST (test code=AST) IUnit/L 15-37 SGPT/ALT (test code=ALT) IUnit/L 12-78 ALKALINE PHOSPHATASE TOTAL (test code=ALKP) IUnit/L 45-117 [id number] 15:40:00* Test Item Value Reference Range Comments LIPASE (test code=LIP) U/L 73.0-393.0 HCG SERUM [id number] 15:40:00* Test Item Value Reference Range Comments HCG SERUM QUAL (test code=HCGQL) NEGATIVE CBC W/O [id number] 15:36:00* Test Item Value Reference Range Comments WHITE BLOOD CELL (test code=WBC) 3.8 K/mm3 4.5-12.5 RED BLOOD CELL (test code=RBC) 3.54 mill/mm3 3.7-5.2 HEMOGLOBIN (test code=HGB) 10.6 gram/dL 11.5-15.5 HEMATOCRIT (test code=HCT) 33.4 % 36.0-46.0 MEAN CELL VOLUME (test code=MCV) 94.4 fL 80-98 MEAN CELL HGB (test code=MCH) 29.9 picogram 27.0-33.0 MEAN CELL HGB CONCETRATION (test code=MCHC) 31.7 gram/dL 33.0-36.0 RED CELL DISTRIBUTION WIDTH (test code=RDW) 14.4 % 11.6-16.2 PLATELET COUNT (test code=PLT) 254 K/mm3 150-450 MEAN PLATELET VOLUME (test code=MPV) 9.4 fL 6.7-11.0 Manual [id number] 07:49:55* Test Item Value Reference Range Comments Segs Man (test code=Segs Man) 29.0 % 36.0-70.0 Band Man (test code=Band Man) 0.0 % 0.0-6.0 Lymph Man (test code=Lymph Man) 53.0 % 12.0-44.0 Monocyte Man (test code=Monocyte Man) 13.0 % 0.0-11.0 Eos Man (test code=Eos Man) 5.0 % 0.0-7.0 Basophil Man (test code=Basophil Man) 0.0 0.0-2.0 Neut Man Abs (test code=Neut Man Abs) 1.1 x10 1.6-7.4 Lymph Man Abs (test code=Lymph Man Abs) 2.0 x10 0.5-4.6 [place] Man Abs (test code=[place] Man Abs) 0.5 x10 0.0-1.2 Eos Man Abs (test code=Eos Man Abs) 0.19 x10 0.00-0.74 Baso Man Abs (test code=Baso Man Abs) 0.00 x10 0.00-0.21 RBC Morph (test code=RBC Morph) As Indicated Normal Hypochromia (test code=Hypochromia) 2+ None Seen Anisocyte (test code=Anisocyte) 1+ None Microcyte (test code=Microcyte) None Seen None Seen Macrocyte (test code=Macrocyte) None Seen None Seen Poik (test code=Poik) None Seen None Seen Polychrom (test code=Polychrom) None Seen None Seen Acanthocyte (test code=Acanthocyte) None Seen None Seen Baso Stippling RBC (test code=Baso Stippling RBC) None Seen None Seen Plt Estimation (test code=Plt Estimation) Normal Normal IG [id number] 07:02:32* Test Item Value Reference Range Comments IG (test code=IG) 0.0 % 0.0-5.0 IG Abs (test code=IG Abs) 0 x10 Complete Blood Count with [id number] 07:02:31* Test Item Value Reference Range Comments WBC (test code=WBC) 3.8 x10 4.4-10.5 RBC (test code=RBC) 3.76 x10 3.75-5.20 Hgb (test code=Hgb) 11.2 g/dL 12.2-14.8 MCV (test code=MCV) 93.10 fL 80.00-100.00 Hct (test code=Hct) 35.0 % 36.5-44.4 MCHC (test code=MCHC) 32.00 g/dL 32.00-37.50 RDW CV (test code=RDW CV) 14.6 % 11.5-14.5 MCH (test code=MCH) 29.8 pg 27.0-32.5 Platelets (test code=Platelets) 288.0 x10 140.0-440.0 MPV (test code=MPV) 9.3 fL Slide Review (test code=Slide Review) Manual Auto Result created by GL_SJM_SLIDE_REV_AUTO GL_[email or web address]_RFLX nRBC (test code=nRBC) 0 NRBC Abs (test code=NRBC Abs) 0.00 x10 Pos Diff XN (test code=Pos Diff XN) A IPF (test code=IPF) 0 % Basic Metabolic [id number] 06:53:55* Test Item Value Reference Range Comments Sodium Level (test code=Sodium Level) 140.0 mmol/L 135.0-145.0 Potassium Level (test code=Potassium Level) 4.7 mmol/L 3.5-5.1 Chloride Level (test code=Chloride Level) 98 mmol/L 98-105 CO2 (test code=CO2) 32 mmol/L 22-29 Anion Gap (test code=Anion Gap) 10 mmol/L 7-16 BUN (test code=BUN) 20.40 mg/dL 6.00-20.00 Creatinine Level (test code=Creatinine Level) 0.90 mg/dL 0.50-0.90 BUN/Creat Ratio (test code=BUN/Creat Ratio) 23 Glucose Level (test code=Glucose Level) 92 mg/dL 70-115 Calcium Level (test code=Calcium Level) 10.0 mg/dL 8.3-10.5 eGFR AA (test code=eGFR AA) >60 mL/min/1.73 m2 eGFR (estimated Glomerular Filtration Rate) is an estimated value, calculated from the patient's serum creatinine using the MDRD equation. It is NOT the patient's actual GFR. The eGFR provides a more clinically useful measure of kidney disease than serum creatinine alone.This calculation takes sex and race into account, if the information is provided. If the race is not provided, and the patient is -Swazi, multiply by 1.212. If sex is not provided, and the patient is female, multiply by 0.742. Results for patients <18 years of age have not been validated by the MDRD study and should be interpreted with caution. eGFR Result Interpretation:eGFR > or=60 is in the Normal RangeeGFR < 60 may mean kidney diseaseeGFR < 15 may mean kidney failure Ranges recommended by the National Kidney Foundation, http://nkdep.nih.gov Basic Metabolic [id number] 06:53:55* Test Item Value Reference Range Comments Sodium Level (test code=Sodium Level) 140.0 mmol/L 135.0-145.0 Potassium Level (test code=Potassium Level) 4.7 mmol/L 3.5-5.1 Chloride Level (test code=Chloride Level) 98 mmol/L 98-105 CO2 (test code=CO2) 32 mmol/L 22-29 Anion Gap (test code=Anion Gap) 10 mmol/L 7-16 BUN (test code=BUN) 20.40 mg/dL 6.00-20.00 Creatinine Level (test code=Creatinine Level) 0.90 mg/dL 0.50-0.90 BUN/Creat Ratio (test code=BUN/Creat Ratio) 23 Glucose Level (test code=Glucose Level) 92 mg/dL 70-115 Calcium Level (test code=Calcium Level) 10.0 mg/dL 8.3-10.5 eGFR AA (test code=eGFR AA) >60 mL/min/1.73 m2 eGFR (estimated Glomerular Filtration Rate) is an estimated value, calculated from the patient's serum creatinine using the MDRD equation. It is NOT the patient's actual GFR. The eGFR provides a more clinically useful measure of kidney disease than serum creatinine alone.This calculation takes sex and race into account, if the information is provided. If the race is not provided, and the patient is -Swazi, multiply by 1.212. If sex is not provided, and the patient is female, multiply by 0.742. Results for patients <18 years of age have not been validated by the MDRD study and should be interpreted with caution. eGFR Result Interpretation:eGFR > or=60 is in the Normal RangeeGFR < 60 may mean kidney diseaseeGFR < 15 may mean kidney failure Ranges recommended by the National Kidney Foundation, http://nkdep.nih.gov Basic Metabolic [id number] 06:53:55* Test Item Value Reference Range Comments Sodium Level (test code=Sodium Level) 140.0 mmol/L 135.0-145.0 Potassium Level (test code=Potassium Level) 4.7 mmol/L 3.5-5.1 Chloride Level (test code=Chloride Level) 98 mmol/L 98-105 CO2 (test code=CO2) 32 mmol/L 22-29 Anion Gap (test code=Anion Gap) 10 mmol/L 7-16 BUN (test code=BUN) 20.40 mg/dL 6.00-20.00 Creatinine Level (test code=Creatinine Level) 0.90 mg/dL 0.50-0.90 BUN/Creat Ratio (test code=BUN/Creat Ratio) 23 Glucose Level (test code=Glucose Level) 92 mg/dL 70-115 Calcium Level (test code=Calcium Level) 10.0 mg/dL 8.3-10.5 eGFR AA (test code=eGFR AA) >60 mL/min/1.73 m2 eGFR (estimated Glomerular Filtration Rate) is an estimated value, calculated from the patient's serum creatinine using the MDRD equation. It is NOT the patient's actual GFR. The eGFR provides a more clinically useful measure of kidney disease than serum creatinine alone.This calculation takes sex and race into account, if the information is provided. If the race is not provided, and the patient is -Swazi, multiply by 1.212. If sex is not provided, and the patient is female, multiply by 0.742. Results for patients <18 years of age have not been validated by the MDRD study and should be interpreted with caution. eGFR Result Interpretation:eGFR > or=60 is in the Normal RangeeGFR < 60 may mean kidney diseaseeGFR < 15 may mean kidney failure Ranges recommended by the National Kidney Foundation, http://nkdep.nih.gov eGFR Non-AA (test code=eGFR Non-AA) >60.00 mL/min/1.73 m2 eGFR (estimated Glomerular Filtration Rate) is an estimated value, calculated from the patient's serum creatinine using the MDRD equation. It is NOT the patient's actual GFR. The eGFR provides a more clinically useful measure of kidney disease than serum creatinine alone.This calculation takes sex and race into account, if the information is provided. If the race is not provided, and the patient is -Swazi, multiply by 1.212. If sex is not provided, and the patient is female, multiply by 0.742. Results for patients <18 years of age have not been validated by the MDRD study and should be interpreted with caution. eGFR Result Interpretation:eGFR > or=60 is in the Normal RangeeGFR < 60 may mean kidney diseaseeGFR < 15 may mean kidney failure Ranges recommended by the National Kidney Foundation, http://nkdep.nih.gov US Lower Ext Venous Duplex [id number] 21:42:09Patient: DOMINIC BRISCOE Date/Time10/14/2018 21:27 CDTReason for ExamEvaluate Chronic DVTReportExam: Left lower extremity venous doppler.[facility]: [facility] Chronic DVTTechnique: Calloway scale, color Doppler and spectral analysis of the common femoral, profunda femoris, femoral , popliteal, saphenous and calf veins of the left lower extremity was performed.Findings:There is normal flow, phasicity, compressibility and augmentation of the deep venous system of the left lower extremity. No DVT is found in the left leg.Impression:Negative for DVT. Final Dictated by: MD West Francesco MDictated DT/TM: 10/14/2018 9:41 pmSigned by: MD West Francesco MSigned (Electronic Signature): 10/14/2018 9:42 pmHCG Qualitative [id number] 07:25:35* Test Item Value Reference Range Comments HCG, Serum Qual (test code=HCG, Serum Qual) Negative Lot # (test code=Lot #) [id number] Expiration Dt (test code=Expiration Dt) 02/21/2020 Neg Control (test code=Neg Control) Negative Pos Control (test code=Pos Control) Positive Internal QC (test code=Internal QC) Acceptable RPR [id number] 04:15:51* Test Item Value Reference Range Comments RPR Qual (test code=RPR Qual) Non-Reactive Non-Reactive Reactive Control (test code=Reactive Control) Reactive Weak Reactive Control (test code=Weak Reactive Control) Weak Reactive Non-Reactive Control (test code=Non-Reactive Control) Non-Reactive Lot # (test code=Lot #) [id number] Expiration Dt (test code=Expiration Dt) 02.21.2020 US Lower Ext Venous Duplex [id number] 16:18:04Patient: DOMINIC BRISCOE Date/Time10/12/2018 16:10 CDTReason for ExamExtremity EdemaReportLocation [id number] LOWER EXTREMITY VENOUS ULTRASOUNDHISTORY: SwellingTECHNIQUE: Transcutaneous sonography of the deep venous system of the right leg was performed with color-flow, duplex Doppler and spectral analysis.FINDINGS:There is normal blood flow in the right common femoral, superficial femoral, profunda, proximal greater saphenous, popliteal, anterior tibial, posterior tibial and dorsalis pedis veins without evidence of thrombosis. Normal augmentation and compression were seen throu ghout.IMPRESSION:No evidence of DVT involving the right lower extremity. Fi nal Dictated by: MD Demetrius, Robina FDictated DT/TM: 10/12/2018 4:17 pmSigned by: MD Demetrius, Robina FSigned (Electronic Signature): 10/12/2018 4:18 pmThyroid Stimulating [id number] 12:42:19* Test Item Value Reference Range Comments TSH (test code=TSH) 0.478 mIU/mL 0.270-4.200 Lipid [id number] 12:39:20* Test Item Value Reference Range Comments Cholesterol Total (test code=Cholesterol Total) 176 mg/dL 0-200 RISK OF HEART DISEASEPublished by [place] [employer] Analyte Optimal Borderline Increased RiskCHOL <200 200-239 >240TRIG <150 150-199 >200HDL Male >60 <40HDL Female >60 <50LDL <100 130-159 >160LDL Near optimal is 100-129 Triglycerides (test code=Triglycerides) 99 mg/dL 9-200 HDL (test code=HDL) 66 mg/dL 50-60 LDL (test code=LDL) 90 mg/dL 0-130 The equation being used in this calculation is LDL=(Chol - HDL) - (Trig / 5) VLDL (test code=VLDL) 20 mg/dL 5-40 The equation being used in this calculation is VLDL=Trig / 5 Chol/HDL (test code=Chol/HDL) 2.7 ratio 0.0-4.4 LDL/HDL Ratio (test code=LDL/HDL Ratio) 1 The equation being used in this calculation is LDL/HDL Ratio=LDL Calc/HDL Chol Urine Drug [id number] 01:32:19* Test Item Value Reference Range Comments Amphetamine Screen Ur (test code=Amphetamine Screen Ur) NEG Barbiturate Screen Ur (test code=Barbiturate Screen Ur) NEG Benzodiazepines Ur (test code=Benzodiazepines Ur) NEG Cocaine Screen Ur (test code=Cocaine Screen Ur) NEG U Methadone Scr (test code=U Methadone Scr) NEG Opiate Screen Ur (test code=Opiate Screen Ur) NEG U PCP Scrn (test code=U PCP Scrn) NEG Cannabinoid Screen Ur (test code=Cannabinoid Screen Ur) NEG U TCA (test code=U TCA) POS Acetaminophen [id number] 01:04:21* Test Item Value Reference Range Comments Acetaminophen Level (test code=Acetaminophen Level) <5 ug/mL(g) 10-30 Alcohol [id number] 01:04:21<0.01Intoxicated 0.080 g/dL or moreSalicylate [id number] 01:04:21* Test Item Value Reference Range Comments Salicylate Level (test code=Salicylate Level) <0.1 mg/dL 0.3-10.0 Comprehensive Metabolic [id number] 00:15:06* Test Item Value Reference Range Comments Sodium Level (test code=Sodium Level) 137 mmol/L 135-145 Potassium Level (test code=Potassium Level) 3.7 mmol/L 3.5-5.1 Chloride Level (test code=Chloride Level) 100 mmol/L 98-105 CO2 (test code=CO2) 26 mmol/L 22-29 Anion Gap (test code=Anion Gap) 11 mmol/L 7-16 BUN (test code=BUN) 12 mg/dL 6-20 Creatinine Level (test code=Creatinine Level) 0.9 mg/dL 0.5-0.9 BUN/Creat Ratio (test code=BUN/Creat Ratio) 13 ratio Glucose Level (test code=Glucose Level) 107 mg/dL 75-115 Calcium Level (test code=Calcium Level) 9.8 mg/dL 8.3-10.5 Alk Phos (test code=Alk Phos) 119 U/L 35-104 Bilirubin Total (test code=Bilirubin Total) 0.5 mg/dL 0.0-1.0 Albumin Level (test code=Albumin Level) 4.4 g/dL 3.5-5.2 Protein Total (test code=Protein Total) 7.6 g/dL 6.4-8.3 ALT (test code=ALT) 14 U/L 1-33 AST (test code=AST) 39 U/L 1-32 Globulin (test code=Globulin) 3.2 g/dL 2.9-3.1 A/G Ratio (test code=A/G Ratio) 1.4 ratio 1.0-2.0 Comprehensive Metabolic [id number] 00:15:06* Test Item Value Reference Range Comments Sodium Level (test code=Sodium Level) 137 mmol/L 135-145 Potassium Level (test code=Potassium Level) 3.7 mmol/L 3.5-5.1 Chloride Level (test code=Chloride Level) 100 mmol/L 98-105 CO2 (test code=CO2) 26 mmol/L 22-29 Anion Gap (test code=Anion Gap) 11 mmol/L 7-16 BUN (test code=BUN) 12 mg/dL 6-20 Creatinine Level (test code=Creatinine Level) 0.9 mg/dL 0.5-0.9 BUN/Creat Ratio (test code=BUN/Creat Ratio) 13 ratio Glucose Level (test code=Glucose Level) 107 mg/dL 75-115 Calcium Level (test code=Calcium Level) 9.8 mg/dL 8.3-10.5 Alk Phos (test code=Alk Phos) 119 U/L 35-104 Bilirubin Total (test code=Bilirubin Total) 0.5 mg/dL 0.0-1.0 Albumin Level (test code=Albumin Level) 4.4 g/dL 3.5-5.2 Protein Total (test code=Protein Total) 7.6 g/dL 6.4-8.3 ALT (test code=ALT) 14 U/L 1-33 AST (test code=AST) 39 U/L 1-32 Globulin (test code=Globulin) 3.2 g/dL 2.9-3.1 A/G Ratio (test code=A/G Ratio) 1.4 ratio 1.0-2.0 eGFR AA (test code=eGFR AA) >60 mL/min/1.73 m2 eGFR (estimated Glomerular Filtration Rate) is an estimated value,calculated from the patient's serum creatinine using the MDRD equation.It is NOT the patient's actual GFR. The eGFR provides a more clinicallyuseful measure of kidney disease than serum creatinine alone.This calculation takes sex and race into account, if the informationis provided. If the race is not provided, and the patient isAfrican-Swazi, multiply by 1.212. If sex is not provided, and thepatient is female, multiply by 0.742. Results for patients <18 years ofage have not been validated by the MDRD study and should be interpretedwith caution.eGFR Result Interpretation:eGFR > or=60 is in the Normal RangeeGFR < 60 may mean kidney diseaseeGFR < 15 may mean kidney failureRanges recommended by the National Kidney Foundat ion,http://nkdep.nih.gov Comprehensive Metabolic [id number] 00:15:06* Test Item Value Reference Range Comments Sodium Level (test code=Sodium Level) 137 mmol/L 135-145 Potassium Level (test code=Potassium Level) 3.7 mmol/L 3.5-5.1 Chloride Level (test code=Chloride Level) 100 mmol/L 98-105 CO2 (test code=CO2) 26 mmol/L 22-29 Anion Gap (test code=Anion Gap) 11 mmol/L 7-16 BUN (test code=BUN) 12 mg/dL 6-20 Creatinine Level (test code=Creatinine Level) 0.9 mg/dL 0.5-0.9 BUN/Creat Ratio (test code=BUN/Creat Ratio) 13 ratio Glucose Level (test code=Glucose Level) 107 mg/dL 75-115 Calcium Level (test code=Calcium Level) 9.8 mg/dL 8.3-10.5 Alk Phos (test code=Alk Phos) 119 U/L 35-104 Bilirubin Total (test code=Bilirubin Total) 0.5 mg/dL 0.0-1.0 Albumin Level (test code=Albumin Level) 4.4 g/dL 3.5-5.2 Protein Total (test code=Protein Total) 7.6 g/dL 6.4-8.3 ALT (test code=ALT) 14 U/L 1-33 AST (test code=AST) 39 U/L 1-32 Globulin (test code=Globulin) 3.2 g/dL 2.9-3.1 A/G Ratio (test code=A/G Ratio) 1.4 ratio 1.0-2.0 eGFR AA (test code=eGFR AA) >60 mL/min/1.73 m2 eGFR (estimated Glomerular Filtration Rate) is an estimated value,calculated from the patient's serum creatinine using the MDRD equation.It is NOT the patient's actual GFR. The eGFR provides a more clinicallyuseful measure of kidney disease than serum creatinine alone.This calculation takes sex and race into account, if the informationis provided. If the race is not provided, and the patient isAfrican-Swazi, multiply by 1.212. If sex is not provided, and thepatient is female, multiply by 0.742. Results for patients <18 years ofage have not been validated by the MDRD study and should be interpretedwith caution.eGFR Result Interpretation:eGFR > or=60 is in the Normal RangeeGFR < 60 may mean kidney diseaseeGFR < 15 may mean kidney failureRanges recommended by the National Kidney Foundat ion,http://nkdep.nih.gov eGFR Non-AA (test code=eGFR Non-AA) >60 mL/min/1.73 m2 eGFR (estimated Glomerular Filtration Rate) is an estimated value,calculated from the patient's serum creatinine using the MDRD equation.It is NOT the patient's actual GFR. The eGFR provides a more clinicallyuseful measure of kidney disease than serum creatinine alone.This calculation takes sex and race into account, if the informationis provided. If the race is not provided, and the patient isAfrican-Swazi, multiply by 1.212. If sex is not provided, and thepatient is female, multiply by 0.742. Results for patients <18 years ofage have not been validated by the MDRD study and should be interpretedwith caution.eGFR Result Interpretation:eGFR > or=60 is in the Normal RangeeGFR < 60 may mean kidney diseaseeGFR < 15 may mean kidney failureRanges recommended by the National Kidney Foundat ion,http://nkdep.nih.gov B Type Natriuretic [id number] 23:45:11* Test Item Value Reference Range Comments BNP (test code=BNP) 69.6 pg/mL 5.0-100.0 Complete Blood Count with [id number] 23:29:11* Test Item Value Reference Range Comments WBC (test code=WBC) 4.6 K/cumm 4.4-10.5 RBC (test code=RBC) 3.76 K/cumm 3.75-5.20 Hgb (test code=Hgb) 11.6 g/dL 12.2-14.8 Hct (test code=Hct) 35.0 % 36.5-44.0 MCV (test code=MCV) 93 fL 80-100 MCHC (test code=MCHC) 33.1 % 32.0-37.5 RDW CV (test code=RDW CV) 14.6 % 11.5-14.5 MCH (test code=MCH) 30.9 pg 27.0-32.5 Platelets (test code=Platelets) 262 K/cumm 140-440 MPV (test code=MPV) 10 fL Slide Review (test code=Slide Review) Auto Result created by GL_SJM_SLIDE_REV_AUTO Instr WBC (test code=Instr WBC) 4.6 Automated [id number] 23:29:11* Test Item Value Reference Range Comments Neutro Auto (test code=Neutro Auto) 42 % 36-70 Lymph Auto (test code=Lymph Auto) 38 % 12-44 [place] Auto (test code=[place] Auto) 13 % 0-11 Eos, Auto (test code=Eos, Auto) 5 % 0-7 Basophil Auto (test code=Basophil Auto) 0 % 0-2 Neutro Absolute (test code=Neutro Absolute) 2.0 K/cumm 1.6-7.4 Lymph Absolute (test code=Lymph Absolute) 1.8 K/cumm 0.5-4.6 [place] Absolute (test code=[place] Absolute) 0.6 K/cumm 0.0-1.2 Eos Absolute (test code=Eos Absolute) 0.25 K/cumm Baso Absolute (test code=Baso Absolute) 0.01 K/cumm 0.00-0.21 XR Chest 2 [id number] 19:08:46Patient: DOMINIC BRISCOE Date/Time09/06/2018 18:40 CDTReason for ExamCoughReportExam: Chest 2 viewsLocation: [id number]: CoughComparison: NoneFindings:The lungs are clear. The pulmonary vasculature is normal. The heart size is normal. Atherosclerosis involves the aorta. The mediastinal silhouette is unremarkable. The bony thorax is intact with degenerative changes noted.Impression:No acute disease. Final Dictated by: MD West Francesco MDictated DT/TM: 09/06/2018 7:08 pmSigned by: MD West Francesco MSigned (Electronic Signature): 09/06/2018 7:08 pmCT Brain/Head w/o Contrast 2018-05-25 11:51:15Patient: DOMINIC BRISCOE Date/Time05/25/2018 11:42 CSTReason for ExamHeadache(s)ReportCT HEAD WITHOUT CONTRASTCLINICAL HISTORY: Headache(s)COMPARISON: CT head dated May 17, 2018TECHNIQUE: 5 mm axial images of the brain were obtained without contrast. Coronal and sagittal reformats were obtained. One or more of the following dose reduction techniques were used: Automated exposure control, adjustment of the mA and/or kV according to patient size, and/or utilization of iterative reconstruction lisa hnique.FINDINGS: There is no acute intracranial hemorrhage or extra-axial collec tion. The calloway-white matter differentiation is well-preserved without evidence o f edema or acute infarct. There is no hydrocephalus, midline shift, or mass eff ect.The cranial vault and skull base are intact. A small air-fluid level is see n in the right maxillary sinus. Mild paranasal mucosal thickening is noted.IMPR ESSION:1. No acute intracranial finding.2. Paranasal sinus disease.Location: R 16 Final Dictated by: MD Delong Adam FDictated DT/TM: 05/25/2018 11:49 amSigned by: MD Delong Adam FSigned (Electronic Signature): 05/25/19 11:51 [facility] Angio Abdomen and [id number] 12:05:52Patient: DOMINIC BRISCOE Date/Time05/17/2018 11:13 CSTReason for ExamAbdominal aortic aneurysm (AAA), knownReportCTA AORTIC PROTOCOL WITH CONTRAST.CLINICAL HISTORY: Chest pain, evaluate aortaTechnique: Helical CT of the chest was performed prior to and following the administration of 100 mL Omnipaque 300 intravenous contrast. Thin section axial, coronal, and sagittal images were obtained. 3-D volume rendered reformatted images of thoracic aorta were also obtained. One or more of the following dose reduction techniques were used: Automated exposure control, adjustment of the mA and/or kV according to patient size, and/or utilization of iterative reconstruction technique.FINDINGS:ANGIOGRAPHIC FINDINGS:The aorta is slightly tortuous. No aortic aneurysm or dissection is seen. No significant atherosclerotic narrowing is present.Aortic measurements are as follows:Aortic root: 3.4 cmAscending aorta at level of pulmonary artery: 3.6 cmAortic arch: 2.7 cmDescending aorta at level of pulmonary artery: 2.1 cmAortic hiatus: 2.1 cmAt renal arteries: 1.9 cmAortic bifurcation: 1.4 cmThe arch vessels are unremarkable. The mesenteric and renal arteries are patent. Note that there are 2 right-sided renal arteries.NON VASCULAR FINDINGS:The lungs are well-expanded. A few tiny calcified granulomas are noted. Mild bibasilar atelectasis is seen.The heart size is normal. No med iastinal or hilar adenopathy is present.There is a small to moderate-sized hiata l hernia. The bowel loops are otherwise unremarkable. The appendix is normal.Th e liver, gallbladder, spleen, pancreas, adrenal glands, and kidneys are unremark able.The urinary bladder, uterus, and adnexa are unremarkable.The bones are inta ct.IMPRESSION:1. No aortic aneurysm or dissection.2. Small to moderate size hi atal hernia.Exam Date/Time05/17/2018 11:13 CSTReportLocation: R16 Final *Dictated by: MD Delong Adam FDictated DT/TM: 05/17/2018 11:59 amSigned by : MD Delong Adam FSigned (Electronic Signature): 05/17/2018 12:05 [facility] Angio [id number] 12:05:52Patient: DOMINIC BRISCOE Date/Time05/17/2018 11:13 CSTReason for Exameval aorta;Chest painReportCTA AORTIC PROTOCOL WITH CONTRAST.CLINICAL HISTORY: Chest pain, evaluate aortaTechnique: Helical CT of the chest was performed prior to and following the administration of 100 mL Omnipaque 300 intravenous contrast. Thin section axial, coronal, and sagittal images were obtained. 3-D volume rendered reformatted images of thoracic aorta were also obtained. One or more of the following dose reduction techniques were used: Automated exposure control, adjustment of the mA and/or kV according to patient size, and/or utilization of iterative reconstruction technique.FINDINGS:ANGIOGRAPHIC FINDINGS:The aorta is slightly tortuous. No aortic aneurysm or dissection is seen. No significant atherosclerotic narrowing is present.Aortic measurements are as follows:Aortic root: 3.4 cmAscending aorta at level of pulmonary artery: 3.6 cmAortic arch: 2.7 cmDescending aorta at level of pulmonary artery: 2.1 cmAortic hiatus: 2.1 cmAt renal arteries: 1.9 cmAortic bifurcation: 1.4 cmThe arch vessels are unremarkable. The mesenteric and renal arteries are patent. Note that there are 2 right-sided renal arteries.NONVASCULAR FINDINGS:The lungs are well- expanded. A few tiny calcified granulomas are noted. Mild bibasilar atelectasis is seen.The heart size is normal. No mediastinal or hilar adenopathy is present.There is a small to moderate-sized hiatal hernia. The gilma wel loops are otherwise unremarkable. The appendix is normal.The liver, gallblad ciaran, spleen, pancreas, adrenal glands, and kidneys are unremarkable.The urinary bladder, uterus, and adnexa are unremarkable.The bones are intact.IMPRESSION:1. No aortic aneurysm or dissection.2. Small to moderate size hiatal hernia.Exam Date/Time05/17/2018 11:13 CSTReportLocation: R16 Final Dictated by: MD Delong Adam FDictated DT/TM: 05/17/2018 11:59 amSigned by: MD Delong A dam FSigned (Electronic Signature): 05/17/2018 12:05 pmCT Brain/Head w/o [id number] 11:37:12Patient: DOMINIC BRISCOE Date/Time05/17/2018 11:13 CSTReason for ExamHeadache(s)ReportCT HEAD WITHOUT CONTRASTCLINICAL HISTORY: Headache(s)COMPARISON: CT head dated April 07, 2018TECHNIQUE: 5 mm axial images of the brain were obtained without contrast. Coronal and sagittal reformats were obtained. One or more of the following dose reduction techniques were used: Automated exposure control, adjustment of the mA and/or kV according to patient size, and/or utilization of iterative reconstruction t echnique.FINDINGS: There is no acute intracranial hemorrhage or extra-axial gurvinder ection. The calloway-white matter differentiation is well-preserved without evidence of edema or acute infarct. There is no hydrocephalus, midline shift, or mass e ffect.The cranial vault and skull base are intact. The paranasal sinuses and mas toid air cells are pneumatized and well-aerated.IMPRESSION: No acute intracrania l abnormalityLocation: R16 Final Dictated by: MD Delong Adam FDi ctated DT/TM: 05/17/2018 11:36 amSigned by: MD Delong Adam FSigned (Electron ic Signature): 05/17/2018 11:37 amXR Chest 1 View [id number] 08:07:02 Patient: DOMINIC BRISCOE am Date/Time05/17/2018 08:01 CSTReason for ExamChest painReportEXAM: CHEST ONE EWINDICATION: Chest painCOMPARISON: April 07, 2018TECHNIQUE: AP view of the c hest.FINDINGS:The cardiomediastinal silhouette is normal. The lungs are clear bi laterally. No pneumothorax or pleural effusion is identified. The osseous struct ures are unremarkable.IMPRESSION:No acute cardiopulmonary process.LOCATION: R16* Final Dictated by: MD Dennis Melanie CDictated DT/TM: 05/17/2018 8:06 amSigned by: MD Dennis Melanie CSigned (Electronic Signature): 05/17/19 19 8:07 amCT Brain/Head w/o [id number] 14:44:49Patient: DOMINIC BRISCOE Date/Time04/07/2018 14:40 CSTReason for ExamDizzinessReportCT head without contrast.Clinical Indication: 57-year-old with presyncopeLocation: R 16.Comparison: NoneTechnique: Computed axial images were obtained from the vertex through the skull base without contrast. Up-to-date CT equipment and radiation dose reduction technique were utilized.Findings:No acute intracranial hemorrhage. Sulci and ventricles are unremarkable. Calloway-white differentiation is well-maintained throughout. No evidence of acute infarct by CT criteria. No midline shift. Basal cisterns are patent. On bone windows, there is no acute osseous abnormality.Impression:No acute intracranial abnormality by CT criteria. Final Dictated by: MD Brar Robert LDictkelly DT/TM: 04/07/2018 2:43 pmSigned by: MD Brar Robert LSigned (Electronic Signature): 04/07/2018 2:44 pmXR Chest 1 View [id number] 12:09:13Patient: DOMINIC BRISCOE Date/Time04/07/2018 11:35 CSTReason for ExamCHF (Congestive Heart Failure), knownReportChest, one viewLOCATION CODE: R 16HISTORY: DyspneaCOMPARISON: NoneFINDINGS:The heart size is normal and the lungs are clear. There is no evidence of pleural effusion, pulmonary edema or patchy lobar consolidation.IMPRESSION:1. No acute cardiopulmonary disease Final Dictated by: MD Barone Roman PDictated DT/TM: 04/07/2018 12:09 pmSigned by: MD Barone Roman PSigned (Electronic Signature): 04/07/2018 12:09 pm
[2019-01-08] MEDS ORDERED: SODIUM CHLORIDE 0.9% 1000ML 1,000 ML IV STA (15:47)
[2019-01-08] MEDS ORDERED: PROMETHAZINE 12.5MG/ NACL 0.9% 12.5 MG/50 ML BAG IV ONE (16:00)
[2019-01-08] MEDS ORDERED: ASPIRIN 81 MG CHEW TAB PO ONE (16:00)
[2019-01-08] MEDS ORDERED: ACETAMIN/BUTALBITAL/CAFFEINE TAB PO ONE (16:00)
[2019-01-08 16:35] LABS: BILIRUBIN,URINE NEGATIVE (NEGATIVE); CLARITY,URINE SL CLOUDY (CLEAR); COLOR,URINE YELLOW (YELLOW); KETONES,URINE NEGATIVE (NEGATIVE); LEUKOCYTE ESTERASE ,URINE SMALL (NEGATIVE); NITRITE,URINE NEGATIVE (NEGATIVE); PROTEIN,URINE DIPSTICK NEGATIVE (NEGATIVE); URINE UROBILINOGEN 0.2 mg/dL (0.2 - 1)
[2019-01-08 16:55] LABS: AMORPHOUS SEDIMENT,URINE MODERATE (FEW); BACTERIA,URINE FEW /HPF; EPITHELIAL CELLS,URINE FEW /LPF; WBC,URINE (MAN) 0-5 /HPF (0-5)
--- NOTE | 2019-01-08 17:05 | Diagnostic Imaging Report ---
CT BRAIN WO HISTORY: 58-year-old female with severe headache over a one week period. COMPARISON: Report of CT brain from 12/28/2015, prior images are not available for comparison at the time of interpretation. TECHNIQUE: Noncontrast axial scans were obtained from skull base to the vertex. Coronal and sagittal reconstructions obtained from the axial data. One or more of the following dose reduction techniques were used: Automated exposure control, adjustment of the mA and/or kV according to patient size, and/or utilization of iterative reconstruction technique. DISCUSSION: Scalp/Skull: Unremarkable. Brain sulci: Appropriate for patient's age. Ventricles: Normal in size and configuration. No hydrocephalus. Extra-axial spaces: No masses or fluid collections. Parenchyma: Few punctate hypodense foci in the subinsular white matter consistent with chronic small vessel ischemic changes. No mass, hemorrhage, or large vascular territory acute infarct. Dural sinuses: No abnormal densities. Sellar/Suprasellar region: Intact. Skull base: Intact. No masses. Incidental findings: None. IMPRESSION: 1. No acute intracranial abnormalities. 2. Mild chronic small vessel ischemic changes. This preliminary report was issued by Dr. Tez May M.D. neuroradiology fellow at 1701 hours on 01/08/2019. I have reviewed the images and agree with findings in the preliminary report. Signed by: Dr. Bell Galindo M.D. on 01/08/2019 8:10 PM
--- NOTE | 2019-01-08 17:06 | Diagnostic Imaging Report ---
EXAM: CHEST SINGLE (PORTABLE) DATE: 01/08/2019 3:47 PM INDICATION: Headache COMPARISON: None FINDINGS: The trachea is midline. The lungs are symmetrically expanded without evidence for large focal consolidation, pneumothorax, or significant pleural effusion. The cardiomediastinal silhouette and pulmonary vasculature are within normal limits. Mild tortuosity noted of the thoracic aorta. No acute osseous abnormality is identified. The surrounding soft tissues are unremarkable. IMPRESSION: No acute cardiopulmonary process identified. Signed by: Dr. Shorty Cochran MD on 01/08/2019 5:03 PM
[2019-01-08 17:20] LABS: BASOPHILS % 0.6 % (0.0-1.0); EOSINOPHILS # (AUTO) 0.3 (0.0-0.4); EOSINOPHILS % 6.3 % (0.0-6.0); HEMATOCRIT 40.7 % (34.2-44.1); HEMOGLOBIN 13.2 g/dL (12.0-16.0); LYMPHOCYTES # (AUTO) 1.8 (1.0-3.2); LYMPHOCYTES % 34.6 % (18.0-39.1); MEAN CORPUSCULAR HEMOGLOBIN 29.1 pg (28-32); MEAN CORPUSCULAR HGB CONC 32.4 g/dL (31-35); MEAN CORPUSCULAR VOLUME 89.6 fL (81-99); MONOCYTES # (AUTO) 0.4 (0.2-0.8); MONOCYTES % 8.3 % (4.4-11.3); NEUTROPHILS # (AUTO) 2.6 (2.1-6.9); PLATELET COUNT 242 x10e3/uL (140-360); RED BLOOD COUNT 4.54 x10e6/uL (3.6-5.1); RED CELL DISTRIBUTION WIDTH 15.5 % (11.7-14.4)
[2019-01-08 17:25] LABS: INR 0.86; PROTHROMBIN TIME 12.2 seconds (11.9-14.5)
[2019-01-08 17:26] LABS: PARTIAL THROMBOPLASTIN TIME 34.2 seconds (23.8-35.5)
[2019-01-08 17:34] LABS: ALANINE AMINOTRANSFERASE 13 IU/L (0-55); ALBUMIN 4.2 g/dL (3.5-5.0); ALBUMIN/GLOBULIN RATIO 1.1 (0.8-2.0); ALKALINE PHOSPHATASE 98 IU/L (40-150); ANION GAP 12.4 mmol/L (8-16); BLOOD UREA NITROGEN 12 mg/dL (7-26); BUN/CREATININE RATIO 13 (6-25); CARBON DIOXIDE 26 mmol/L (22-29); CHLORIDE 103 mmol/L (98-107); CREATINE KINASE 61 IU/L (29-168); CREATININE, SERUM 0.96 mg/dL (0.57-1.11); EST GLOMERULAR FILTRATION RATE 60 ML/MIN (60-); GLUCOSE 84 mg/dL (74-118); POTASSIUM 4.4 mmol/L (3.5-5.1); SODIUM 137 mmol/L (136-145)
[2019-01-08 20:04] VITALS: BP 141/65
== END 2019-01-08 20:05 | disposition home or self-care (01) ==
LOC: ER 15:35
DX: G43.019 Migraine without aura, intractable, without status migrainosus (principal)
CPT/HCPCS: 36415; 70450; 71045; 80053; 81001; 82550; 82553; 84484; 85025; 85610; 85730; 87086; 93005; 99284; J2550; J7030

== ENCOUNTER 2020-07-31 11:00 | Emergency (ER) | payer SELFPAY ==
[~2020-07-31] VITALS: Ht 170.2 cm; Wt 81.6 kg
[2020-07-31] MEDS ORDERED: SODIUM CHLORIDE 0.9% 1000ML 1,000 ML IV STA (11:23)
[2020-07-31] MEDS ORDERED: SUMATRIPTAN SUCCINATE 6 MG/0.5 ML VIAL SC NR (11:30)
[2020-07-31] MEDS ORDERED: PROMETHAZINE 25MG/ NS 50ML (IV) IV ONE (11:30)
[2020-07-31 12:03] LABS: AMPHETAMINES SCREEN,URINE NEGATIVE (NEGATIVE); PHENCYCLIDINE SCREEN,URINE NEGATIVE (NEGATIVE)
[2020-07-31 12:06] LABS: BENZODIAZEPINES SCREEN,URINE POSITIVE (NEGATIVE)
[2020-07-31 12:08] LABS: CLARITY,URINE CLEAR (CLEAR); COLOR,URINE YELLOW (YELLOW)
[2020-07-31 12:09] LABS: KETONES,URINE NEGATIVE (NEGATIVE); LEUKOCYTE ESTERASE ,URINE SMALL (NEGATIVE); NITRITE,URINE NEGATIVE (NEGATIVE); PROTEIN,URINE DIPSTICK NEGATIVE (NEGATIVE); URINE UROBILINOGEN 0.2 mg/dL (0.2 - 1)
[2020-07-31 12:11] LABS: BASOPHILS % 0.4 % (0.0-1.0); EOSINOPHILS # (AUTO) 0.1 (0.0-0.4); EOSINOPHILS % 1.8 % (0.0-6.0); HEMATOCRIT 40.7 % (34.2-44.1); HEMOGLOBIN 13.5 g/dL (12.0-16.0); LYMPHOCYTES # (AUTO) 1.6 (1.0-3.2); LYMPHOCYTES % 31.9 % (18.0-39.1); MEAN CORPUSCULAR HEMOGLOBIN 29.8 pg (28-32); MEAN CORPUSCULAR HGB CONC 33.2 g/dL (31-35); MEAN CORPUSCULAR VOLUME 89.8 fL (81-99); MONOCYTES # (AUTO) 0.3 (0.2-0.8); MONOCYTES % 6.1 % (4.4-11.3); NEUTROPHILS % 59.6 % (38.7-80.0); PLATELET COUNT 266 x10e3/uL (140-360); RED BLOOD COUNT 4.53 x10e6/uL (3.6-5.1); RED CELL DISTRIBUTION WIDTH 13.4 % (11.7-14.4)
[2020-07-31] MEDS ORDERED: ACETAMIN/BUTALBITAL/CAFFEINE TAB PO NR (12:15)
[2020-07-31 12:20] LABS: INR 0.87; PARTIAL THROMBOPLASTIN TIME 22.1 seconds (23.8-35.5); PROTHROMBIN TIME 12.4 seconds (11.9-14.5)
[2020-07-31 12:24] LABS: BACTERIA,URINE RARE /HPF; EPITHELIAL CELLS,URINE FEW /LPF; RBC,URINE 0-5 /HPF (0-5); WBC,URINE (MAN) 0-5 /HPF (0-5)
[2020-07-31] MEDS ORDERED: PROMETHAZINE 12.5MG/ NACL 0.9% 50 ML ONE (12:49)
[2020-07-31 12:59] LABS: ALANINE AMINOTRANSFERASE 10 IU/L (0-55); ALBUMIN 4.1 g/dL (3.5-5.0); ALBUMIN/GLOBULIN RATIO 1.1 (0.8-2.0); ALKALINE PHOSPHATASE 109 IU/L (40-150); ANION GAP 15.4 mmol/L (8-16); BLOOD UREA NITROGEN 5 mg/dL (7-26); BUN/CREATININE RATIO 6 (6-25); CALCIUM 9.4 mg/dL (8.4-10.2); CARBON DIOXIDE 24 mmol/L (22-29); CHLORIDE 102 mmol/L (98-107); CREATINE KINASE 37 IU/L (29-168); CREATININE, SERUM 0.86 mg/dL (0.57-1.11); EST GLOMERULAR FILTRATION RATE > 60 ML/MIN (60-); GLUCOSE 104 mg/dL (74-118); MAGNESIUM 1.9 MG/DL (1.3-2.1); POTASSIUM 4.4 mmol/L (3.5-5.1); SODIUM 137 mmol/L (136-145)
== END 2020-07-31 14:58 | disposition home or self-care (01) ==
LOC: ER 11:50
DX: R51.9 Headache, unspecified (principal); R11.2 Nausea with vomiting, unspecified; I10 Essential (primary) hypertension; F41.9 Anxiety disorder, unspecified; F32.9 Major depressive disorder, single episode, unspecified; F17.210 Nicotine dependence, cigarettes, uncomplicated
CPT/HCPCS: 36415; 70450; 80053; 80307; 81001; 82550; 82553; 83735; 84484; 85025; 85610; 85730; 87086; 99284; J2550; J3030; J7030

== ENCOUNTER 2020-09-29 21:39 | Emergency (ER) | payer SELFPAY ==
[~2020-09-29] VITALS: Ht 170.2 cm; Wt 81.6 kg
[2020-09-30 03:06] VITALS: BP 127/76
== END 2020-09-30 02:22 | disposition home or self-care (01) ==
LOC: ER 22:02
DX: F41.9 Anxiety disorder, unspecified (principal); F13.90 Sedative, hypnotic, or anxiolytic use, unspecified, uncomplicated; I10 Essential (primary) hypertension; F32.9 Major depressive disorder, single episode, unspecified; F17.210 Nicotine dependence, cigarettes, uncomplicated
CPT/HCPCS: 99283

== ENCOUNTER 2020-12-25 13:15 | Emergency (ER) | payer SELFPAY ==
[~2020-12-25] VITALS: Ht 170.2 cm; Wt 81.6 kg
[2020-12-25] MEDS ORDERED: PROMETHAZINE HCL (IM) 25 MG/ML VIAL IM ONE (15:00)
[2020-12-25] MEDS ORDERED: ACETAMIN/BUTALBITAL/CAFFEINE TAB PO ONE (15:00)
== END 2020-12-25 17:45 | disposition home or self-care (01) ==
LOC: ER 14:39
DX: G43.909 Migraine, unspecified, not intractable, without status migrainosus (principal); Z20.822 Contact with and (suspected) exposure to COVID-19
CPT/HCPCS: 99282; J2550; U0002